=== PATIENT | female | born 2005 | race Caucasian/White ===

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

== ENCOUNTER 2024-01-04 03:48 | Emergency (ER) | payer OTHER, SELFPAY ==
[2024-01-04 04:16] VITALS: BP 99/64; PULSE 98; RESP 16; TEMP 36.4; O2SAT 98; BMI 18.6
--- NOTE | 2024-01-04 04:41 | ED.GENADULT ---
HPI - General Adult General Chief complaint: Sore Throat Stated complaint: Body aches, cough Time Seen by Provider: 01/04/24 03:52 History of Present Illness HPI narrative: 4 days of worsening cold symptoms, cought, headache, throat sore, body aches. last tylenol 2100 also took ibuprofen and neproxen w/o relief. unable to sleep tonight due to worsening symptoms. 18-year-old young woman presenting to the emergency department with complaint of cough and congestion headache body aches and sore throat. Has been taking ibuprofen acetaminophen and naproxen. She just can not sleep due to being so uncomfortable. Uncertain exposures. Nauseated. Going on for almost 4 days now. No diarrhea. Does smoke. Troubling symptoms in particular seem to be the sore throat and body aches Related Data Home Medications Medication Instructions Recorded Confirmed drospirenone 3 mg-ethinyl 1 tab PO QDAY 09/23/22 09/21/23 estradiol 0.02 mg tablet (BOUBACAR (28)) Previous Rx's Medication Instructions Recorded phenazopyridine 200 mg tablet 200 mg PO TID PRN pain 6 doses #6 09/23/22 (Pyridium) tabs fluconazole 150 mg tablet 150 mg PO Q3D 2 doses #2 tabs 09/30/22 fluconazole 150 mg tablet 150 mg PO Q3D 2 doses #2 tabs 09/21/23 sulfamethoxazole 800 1 tab PO BID #9 tabs 09/21/23 mg-trimethoprim 160 mg tablet (Bactrim DS) Allergies Allergy/AdvReac Type Severity Reaction Status Date / Time lansoprazole [From Prevacid] Allergy Mild Hives Verified 10/30/23 17:44 Penicillins Allergy Mild Hives Verified 10/30/23 17:44 ibuprofen AdvReac Mild gi upset Verified 10/30/23 17:44 Review of Systems Status of ROS: Reports: 6 or more systems reviewed and unremarkable except as noted in History and below PFSH PFSH Social History Smoking Status: Current every day smoker Do you use any of these nicotine containing products: E-Cigarettes and Vaping Products Second hand tobacco smoke exposure: No How often do you have a drink containing alcohol: never AUDIT-C Alcohol total score: 0 Non-prescribed substance use: denies use Exam Narrative: Exam Narrative: Clearly uncomfortable. Tearful in silent discomfort. Is not tachypneic. Skin is warm and dry. No apparent rash. Lungs are clear. Oropharynx is moist. Mild erythema posteriorly but no cervical lymphadenopathy. Lungs are clear. Heart in elevated rate and regular rhythm. Abdomen is soft nontender. Clearly sore with movements. Extremities are well perfused without edema. Const: Vital Signs, click to edit/add: Vital Signs - 24 hr 01/04/24 04:16 01/04/24 05:15 Temperature 97.6 F Pulse Rate [Pulse Oximeter] 98 Respiratory Rate 16 18 Blood Pressure [Ri ght Upper Arm] 99/64 Pulse Oximetry 98 100 Oxygen Delivery Me thod Room Air Room Air Documenting provider has reviewed patient's vital signs: yes Course Vital Signs Vital signs: Initial Vital Signs Temperature 97.6 F 01/04/24 04:16 Temperature Source Temporal Artery Scan 01/04/24 04:16 Pulse Rate 98 01/04/24 04:16 Respiratory Rate 16 01/04/24 04:16 Blood Pressure 99/64 01/04/24 04:16 Blood Pressure Mean 75 01/04/24 04:16 Blood Pressure Position Sitting 01/04/24 04:16 Pulse Oximetry 98 01/04/24 04:16 Oxygen Delivery Method Room Air 01/04/24 04:16 Vital Signs Temperature 97.6 F 01/04/24 04:16 Pulse Rate 98 01/04/24 04:16 Respiratory Rate 16 01/04/24 04:16 Blood Pressure 99/64 01/04/24 04:16 Pulse Oximetry 98 01/04/24 04:16 Oxygen Delivery Method Room Air 01/04/24 04:16 Temperature 97.6 F 01/04/24 04:16 Pulse Rate 98 01/04/24 04:16 Respiratory Rate 18 01/04/24 05:15 Blood Pressure 99/64 01/04/24 04:16 Pulse Oximetry 100 01/04/24 05:15 Oxygen Delivery Method Room Air 01/04/24 05:15 Medical Decision Making [facility] Narrative Medical decision making narrative: Considering community prevalence I would suspect influenza here particularly with myalgias. Triple swab has been collected. Strep as well. Does not appear to have symptoms of pneumonia otherwise. No rashes. No vomiting or diarrheal illness. She would like some relief of symptoms unable to accomplish this with [id number] medication. Seen a couple of months ago here treat for urinary tract infection; culture results were negative/inconclusive. Strep is negative. Around the time I am seeing [facility] triple swab has been resulted positive for influenza type B. We discussed potential treatment options. Does not feel that has to have IV hydration here. Vitally well. Needs a work note. See patient discharge plan further discussion Medical Records Medical records reviewed: Yes I reviewed the patient's medical records Lab Data Lab results reviewed: Yes I reviewed the patient's lab results Labs: Lab Results 01/04/24 Range/Units 04:20 SARS-CoV-2 (PCR) Negative SARS-CoV-2 (Negative) Influenza Type A (PCR) Negative PCR FLU A (Negative) Influenza Type B (PCR) POSITIVE PCR FLU B A (Negative) RSV (PCR) Negative PCR RSV (Negative) Group A Strep DNA NOT DETECTED (Not Detectd) Discharge Plan Discharge Clinical Impression: Influenza B, Myalgia Patient Disposition: Home, Self-Care Condition: Stable Additional Instructions: Important to focus on hydration. Try to get 2-3 L of water/liquid intake daily. Can take up to 600 mg of ibuprofen or up to 850 mg of acetaminophen per dose. They can also be combined. Remember that each tablet of [place] contains 325 mg of acetaminophen [place] and Zofran from [facility]. Work note. Prescriptions: No Action drospirenone-ethinyl estradiol [BOUBACAR (28)] 3-0.02 mg tablet 1 tab PO QDAY phenazopyridine [Pyridium] 200 mg tablet 200 mg PO TID PRN (Reason: pain) Qty: 6 0RF fluconazole 150 mg tablet 150 mg PO Q3D Qty: 2 0RF Rx Instructions: may repeat second dose 72 hrs after first dose if symptoms persist sulfamethoxazole-trimethoprim [Bactrim DS] 800-160 mg tablet 1 tab PO BID Qty: 9 0RF fluconazole 150 mg tablet 150 mg PO Q3D Qty: 2 0RF Follow Up/Referrals: Provider,Not a Local [Primary Care Provider] - Stand Alone Forms: [facility] Info Instructions
[2024-01-04 04:54] LABS: Strep A DNA Probe* NOT DETECTED (Not Detectd)
[2024-01-04 05:08] LABS: PCR FLU A Negative PCR FLU A (Negative); PCR FLU B POSITIVE PCR FLU B (Negative); PCR RSV Negative PCR RSV (Negative); SARS PCR* Negative SARS-CoV-2 (Negative)
[2024-01-04 05:15] VITALS: RESP 18; O2SAT 100
== END 2024-01-04 06:06 | disposition home or self-care (01) ==
PROVIDERS: Emergency Provider Family Medicine
DX: J10.1 Influenza due to other identified influenza virus with other respiratory manifestations (principal); M79.18 Myalgia, other site
CPT/HCPCS: 87631; 87651; 99283; 99284

== ENCOUNTER 2024-02-15 00:14 | Emergency (ER) | payer OTHER, SELFPAY ==
[2024-02-15 00:25] VITALS: BP 103/67; PULSE 75; RESP 16; TEMP 36.6; O2SAT 96; BMI 19.0
--- NOTE | 2024-02-15 00:39 | ED_ITS ---
HPI - General Adult General Chief complaint: Urogenital Problems, Female Stated complaint: UTI Time Seen by Provider: 02/15/24 00:22 History of Present Illness HPI narrative: recurrent UTIs for the past year that are difficult to treat, current UTI was Macrobid and was switched to cipro 2 days ago, has been taking ABO without improvement, took Pyridium 1 hour ago but continues to have severe pain. also took Tylenol prior to coming in. no fever or chills currenlty 18-year-old woman presenting to the emergency department with concern of worsening urinary tract infection. Reports about 2 weeks of symptoms that sounds to have correlated with intercourse. Further questioning reveals that began to have frequent urinary tract infections beginning a year urine half ago with partner at the time. Did not have as much trouble in subsequent relationship and now with another relationship seems to be having UTIs again. She takes care to urinate after intercourse. I do review records. 09/18 urine culture grew pansensitive E coli. October of this year urine culture was mixed Gram-positive jimmy. She was initiated on Macrobid 5 or so days ago for cramping pressure severe dysuria. No urine was collected; this visit was done virtually. Two days ago was seen in clinic again with nitrate positive urine and switched to ciprofloxacin. This culture has not grown out any organisms. Prior cultures did also recently have not grown out anything. Was seen then yesterday by OBGYN thinking that maybe something structurally might be wrong or perhaps has an STI; the physical evaluation and labs were all negative. Mom accompanies her here today having left work as she was curled up in severe pain. Initially noting that peridium is not helpful it sounds as though peridium today has been helpful as it she is sitting with a sense of pressure currently and dysuria has lessened. Also has taken acetaminophen. Mom mentions also that have been taking cranberry capsules and probiotics. Related Data Home Medications Medication Instructions Recorded Confirmed drospirenone 3 mg-ethinyl 1 tab PO QDAY 09/23/22 02/15/24 estradiol 0.02 mg tablet (BOUBACAR (28)) ciprofloxacin HCl 500 mg tablet 500 mg PO BID 02/15/24 02/15/24 Previous Rx's Medication Instructions Recorded phenazopyridine 200 mg tablet 200 mg PO TID PRN pain 6 doses #6 09/23/22 (Pyridium) tabs ciprofloxacin HCl 500 mg tablet 500 mg PO BID #6 tabs 02/15/24 hyoscyamine sulfate 0.125 mg tablet 0.125 - 0.25 mg (1 - 2 x 0.125 mg) 02/15/24 PO Q4-6H PRN cramping/pain #30 tabs phenazopyridine 200 mg tablet 100 - 200 mg (0.5 - 1 x 200 mg) PO 02/15/24 TID PRN pain #10 tabs Allergies Allergy/AdvReac Type Severity Reaction Status Date / Time lansoprazole [From Prevacid] Allergy Mild Hives Verified 10/30/23 17:44 Penicillins Allergy Mild Hives Verified 10/30/23 17:44 Review of Systems Status of ROS: Reports: 6 or more systems reviewed and unremarkable except as noted in History and below [facility] Social History Smoking Status: Current every day smoker Do you use any of these nicotine containing products: E-Cigarettes and Vaping Products Second hand tobacco smoke exposure: No How often do you have a drink containing alcohol: never AUDIT-C Alcohol total score: 0 Non-prescribed substance use: denies use Exam Narrative: Exam Narrative: Calm. Slim. NAD. No flank pain. She is breathing easily. Abdomen is soft otherwise without notable discomfort. No masses. Skin is warm and dry without rashes. Heart is in regular rate and rhythm. exam was not done Const: Vital Signs, click to edit/add: Vital Signs - 24 hr 02/15/24 00:25 Temperature 97.9 F Pulse Rate [Pulse Oximeter] 75 Respiratory Rate 16 Blood Pressure [Ri ght Upper Arm] 103/67 Pulse Oximetry 96 Oxygen Delivery Me thod Room Air Documenting provider has reviewed patient's vital signs: yes Course Vital Signs Vital signs: Initial Vital Signs Temperature 97.9 F 02/15/24 00:25 Temperature Source Temporal Artery Scan 02/15/24 00:25 Pulse Rate 75 02/15/24 00:25 Respiratory Rate 16 02/15/24 00:25 Blood Pressure 103/67 02/15/24 00:25 Blood Pressure Mean 79 02/15/24 00:25 Blood Pressure Position Sitting 02/15/24 00:25 Pulse Oximetry 96 02/15/24 00:25 Oxygen Delivery Method Room Air 02/15/24 00:25 Vital Signs Temperature 97.9 F 02/15/24 00:25 Pulse Rate 75 02/15/24 00:25 Respiratory Rate 16 02/15/24 00:25 Blood Pressure 103/67 02/15/24 00:25 Pulse Oximetry 96 02/15/24 00:25 Oxygen Delivery Method Room Air 02/15/24 00:25 Temperature 98.6 F 02/15/24 03:15 Pulse Rate 94 02/15/24 03:15 Respiratory Rate 16 02/15/24 03:15 Blood Pressure 92/63 02/15/24 03:15 Pulse Oximetry 96 02/15/24 03:15 Oxygen Delivery Method Room Air 02/15/24 03:15 Medications Administered Medications: Discontinued Medications Generic Name Dose Route Start Last Admin Trade Name Freq PRN Reason Stop Dose Admin Hyoscyamine 0.25 mg 02/15/24 02:22 02/15/24 03:04 Hyoscyamine Sulfate 0.125 Mg Tab SUBLINGUAL 02/15/24 02:23 0.25 mg ONCE ONE Administration Sodium Chloride 1,000 mls @ 1,000 mls/hr 02/15/24 02:22 02/15/24 03:13 0.9 % Sodium Chloride 1000 Ml IV 02/15/24 03:21 Infused .Q1H ONE Infusion Ibuprofen 600 mg 02/15/24 01:11 02/15/24 01:22 Ibuprofen 200 Mg Tablet PO 02/15/24 01:12 600 mg ONCE ONE Administration Medical Decision Making MDM Narrative Medical decision making narrative: This would appear I think intermittently to be urinary tract infections but more recently it would appear the symptoms have been related to aseptic cystitis or urethritis. I think also experiencing unusual spasms. Again all STI testing yesterday was negative. Did offer ibuprofen and hyoscyamine. On later reassessment does seem improved. Thinks that the hyoscyamine was helpful. Urinalysis is grossly positive. I suspect that Macrobid as bacteriostatic was ultimately not effective. We have also probably not seen effect of ciprofloxacin yet; has had 3 doses. Reviewed only available cultures that have been positive done here as referenced above. E coli was sensitive to ciprofloxacin at that time. Would continue this course then for a few more days than initial 3 day prescription. Mom is wondering whether not we should collect some other labs for more thorough evaluation. Did go ahead and place IV and given L normal saline. Renal function looks good. White count is not elevated neither is CRP. Overall improved during time in the ER. They are planning follow-up with [facility]. See patient discharge plan for further discussion. Prescribing a few more days of ciprofloxacin, hyoscyamine and phenazopyridine Medical Records Medical records reviewed: Yes I reviewed the patient's medical records Lab Data Lab results reviewed: Yes I reviewed the patient's lab results Labs: Lab Results 02/15/24 02/15/24 Range/Units 01:05 02:45 WBC 5.51 (4.50-11.00) K/uL RBC 4.25 (4.00-5.20) m/uL Hgb 12.5 (12.0-16.0) gm/dL Hct 37.7 (33.0-51.0) % MCV 89 (80-100) fL MCH 29 (26-34) pg MCHC 33 (32-36) gm/dL RDW Coeff of [place] 12.3 (11.5-15.5) % Plt Count 245 (140-440) K/uL Neut % (Auto) 46.3 (42.0-72.0) % Lymph % (Auto) 42.8 (20-44) % [place] % (Auto) 9.3 (0.0-11.0) % Eos % (Auto) 0.9 (0.0-7.0) % Baso % (Auto) 0.5 (0.0-3.0) % Neut # (Auto) 2.55 (1.7-7.0) K/uL Lymph # (Auto) 2.36 (0.90-2.90) K/uL [place] # (Auto) 0.50 (0.00-0.90) K/UL Eos # (Auto) 0.05 (0.00-0.50) K/uL Baso # (Auto) 0.03 (0.00-0.30) K/uL Abs Immat Gran (auto) 0.01 (0.00-0.30) K/uL Imm/Tot Granulo (auto) 0.2 % Sodium 136 (135-149) mmol/L Potassium 4.3 (3.6-5.1) mmol/L Chloride 108 (96-114) mmol/L Carbon Dioxide 23 (20-32) mmol/L Anion Gap 5 L (7-15) mEq/L BUN 16 (5-24) mg/dL Creatinine 0.8 (0.6-1.2) mg/dL Estimated Creat Clear 95.57 Estimated GFR 109 ml/min Glucose 95 (60-115) mg/dL Calcium 9.6 (8.7-10.8) mg/dL C-Reactive Protein < 0.5 L (0.5-1.0) mg/dL Urine Color [place] A (Yellow) Urine Appearance Clear (Clear) Urine pH 6.5 (5.0-8.5) Ur Specific [place] 1.025 (1.000-1.030) Urine Protein 2+ A (Negative) Urine Glucose (UA) 1+ A (Negative) Urine Ketones 1+ A (Negative) Urine Blood Negative (Negative) Urine Nitrite Positive A (Negative) Urine Bilirubin 2+ A (Negative) Urine Urobilinogen >=8.0 A (0.2-1.0) Ur Leukocyte Esterase 3+ A (Negative) Urine RBC 2-5 A (0-2) Urine WBC 25-50 A (0-5) Ur Squamous Epith Cells Moderate A (None-Few) Amorphous Sediment Moderate A (None) Urine Bacteria Moderate A (None) Fine Granular Casts Few A (None) Discharge Plan Discharge Clinical Impression: Cystitis Patient Disposition: Home w/ Parent or Adult Condition: Improved Additional Instructions: Stay well-hydrated with water. Avoid juices, sweetened beverages until clear of this apparent infection. I think you can continue to take phenazopyridine for a few more days if you need. I would strongly consider avoiding intercourse until can verify that are symptom-free and urinalysis at a minimum shows you clear of infection. A urine culture will be pending here though and we will call you if you need to make any changes with your antibiotic. And for now, please continue with the ciprofloxacin. I will extend the course though for another 3 days so that you complete a full 6 days of ciprofloxacin. Please follow-up in clinic as planned for further evaluation and recommendations beyond what we have been able to do here. Prescriptions: New ciprofloxacin HCl 500 mg tablet 500 mg PO BID Qty: 6 0RF hyoscyamine sulfate 0.125 mg tablet 0.125 - 0.25 mg PO Q4-6H PRN (Reason: cramping/pain) Qty: 30 0RF phenazopyridine 200 mg tablet 100 - 200 mg PO TID PRN (Reason: pain) Qty: 10 0RF No Action drospirenone-ethinyl estradiol [BOUBACAR (28)] 3-0.02 mg tablet 1 tab PO QDAY phenazopyridine [Pyridium] 200 mg tablet 200 mg PO TID PRN (Reason: pain) Qty: 6 0RF ciprofloxacin HCl 500 mg tablet 500 mg PO BID Follow Up/Referrals: Provider,Not a Local [Primary Care Provider] - Stand Alone Forms: [facility] Info Instructions
--- OUTSIDE RECORDS SUMMARY | 2024-02-15 01:18 | XMS_ITS | Clinical Summary ---
Author Name Unknown Organization [facility] Address [address] [place] [address] Care Team Providers Care Rolled Ham Lacer Name Role Phone Chetna Randhawa MD Unavailable [phone] David Blancas DO Primary Care Provider [phone] David Blancas DO Unavailable [phone] Allergies Active Allergy Reactions Criticality Noted Date Comments Amoxicillin Rash Low 06/27/2020 Taken at the same time as Prevacid; occurred in 4th grade Lansoprazole Rash Low 01/04/2020 Medications Medication Sig Dispensed Refills Start Date End Date Status drospirenone-ethi nyl estradiol (BOUBACAR) 3-0.02 MG tablet Take 1 tablet by mouth daily Active ciprofloxacin (CIPRO) 500 MG tabletIndications :Recurrent UTI Take 1 tablet (500 mg) by mouth 2 times daily 6 tablet 02/12/2024 Active nitroFURantoin macrocrystal-mono hydrate (MACROBID) 100 MG capsule TAKE ONE CAPSULE BY MOUTH TWICE DAILY FOR 5 DAYS. TAKE WITH A MEAL/FOOD. 09/23/2022 02/12/2024 Discontinued( Med Rec(No AVS / No eCancel)) phenazopyridine (PYRIDIUM) 200 MG tablet TAKE ONE TABLET BY MOUTH THREE TIMES DAILY NEEDED for max of 6 doses. 09/23/2022 02/12/2024 Discontinued( Med Rec(No AVS / No eCancel)) clobetasol (TEMOVATE) 0.05 % external cream 10/18/2021 02/12/2024 Discontinu ed( Med Rec(No AVS / No eCancel)) acetic acid-hydrocortiso ne (VOSOL-HC) 1-2 % otic solutionIndicatio ns:Otalgia, left Place 3 drops Into the left ear 3 times daily 10 mL 05/08/2023 02/12/2024 Discontinued( Med Rec(No AVS / No eCancel)) nitroFURantoin macrocrystal-mono hydrate (MACROBID) 100 MG capsuleIndication s:Acute UTI (urinary tract infection) Take 1 capsule (100 mg) by mouth 2 times daily for 5 days 10 capsule 02/08/2024 02/13/2024 Active Problems Problem Noted Date Diagnosed Date Recurrent UTI 02/12/2024 Screening for STDs (sexually transmitted disease s) 05/08/2023 Last Assessment & Plan: Urinalysis obtained at intake cannot be used for GC/chlamydia testing. Retest tomorrow, cervical swab optimal. Recommended barrier methods Dysuria 05/08/2023 Last Assessment & Plan: 3 weeks since episode of unprotected sex. Exam today nondiagnostic, vaginitis. Urinalysis however without white cells by microscopic. Urine culture, investigate perineum further. Recommend barrier methods Otalgia, left 05/08/2023 Last Assessment & Plan: Left ear pain, frequency/duration unclear. She blames this on headphone use at her employment, reports volume is low. Exam shows no TM fluid nor erythema, nontender canal without tenderness. Trial of therapy Vaginitis and vulvovaginitis 05/08/2023 Last Assessment & Plan: Dysuria 3 weeks following unprotected sex. Pyuria on UA, white cells in vaginal swab without diagnostic findings. Suspicious of HSV versus chlamydia. Patient needs inspection, additional test samples. We are able to arrange a female exam for tomorrow Isolated proteinuria without specific morphologi c lesion 05/08/2023 Last Assessment & Plan: On UA with pyuria. Recommend retest near future when asymptomatic. If persistent, investigate renal function further Resolved Problems Problem Noted Date Diagnosed Date Resolved Date Dehydration 06/27/2020 10/03/2022 Encounters Date Type Department Care Team Description 02/12/2024 4:00 PM CDT Office Visit [facility] [address] [place] [phone] David Britton MD Dysuria (Primary Dx); Screening for STDs (sexually transmitted diseases); Recurrent UTI 02/12/2024 12:20 AM CDT E-Visit [facility] [address] [phone] Jenae Lepe PA-C UTI (Entered automatically based on patien... 02/12/2024 Travel 02/08/2024 8:40 PM CDT E-Visit [facility] [address] [place] [phone] Judith Dominique APRN FLORIST SUPPLIES SALESPERSON UTI (Entered automatically based on patien... 01/16/2024 Travel 01/10/2024 3:30 PM CDT Lab [facility] [address] [place] [phone] Dysuria 01/10/2024 Travel 01/09/2024 1:05 AM CDT E-Visit [facility] [address] [phone] Jazmine Pruitt CNP UTI (Entered automatically based on patien... 12/18/2023 9:20 PM BARTENDERS E-Visit [facility] [address] [place] [phone] Garima Wu, HYPERBARIC TECHNOLOGIST UTI (Entered automatically based on patien... 12/10/2023 1:15 PM BARTENDERS Lab [facility] [address] [place] [phone] Lower urinary tract symptoms (LUTS) 12/10/2023 Travel 12/09/2023 7:25 PM BARTENDERS E-Visit [facility] [address] [phone] Violet Castaneda PA-C UTI (Entered automatically based on patien... 12/09/2023 Orders Only [address] [phone] Violet Castaneda PA-C Lower urinary tract symptoms (LUTS) (Primary Dx) 12/09/2023 Orders Only [address] [phone] Violet Castaneda PA-C Lower urinary tract symptoms (LUTS) (Primary Dx) 12/03/2023 11:30 AM BARTENDERS Lab [facility] [address] [place] [phone] Acute UTI (urinary tract infection) 12/03/[address] [phone] Toby Stephens PA-C 12/03/2023 Travel 12/02/2023 10:05 PM BARTENDERS E-Visit [facility] [address] [phone] Toby Stephens PA-C UTI (Entered automatically based on patien... from Last 3 Months Immunizations Name Administration Dates Next Due Comvax (HIB/HepB) 05/27/2005,2004,07/23/20 04 DTAP (<7y) 03/16/2009, 6,2004,09/18,2004 Flu, Unspecified 09/22/2006 HEPATITIS A (PEDS 12M-18Y) 06/14/2008,06/01/2007 Influenza (H1N1) 09/14/2009 Influenza Intranasal Vaccine 08/27/2011 Influenza Vaccine (Flucelvax Quadrivalent) 09/14/2018 Influenza Vaccine >6 months,quad, PF 09/12/2015 Influenza, seasonal, injectable, PF 09/10/2012,1 ,10/01/2005 MMR 06/12/2009,06/25/2005 Meningococcal ACWY (Menveo??) 06/16/2020 Meningococcal B (Bexsero??) 05/31/2022, Nasal Influenza Vaccine 2-49 (FluMist) 4,08/18/2013 Pneumococcal (PCV 7) 08/27/2005,11/16/19 05,2004,07/23 Poliovirus, inactivated (IPV) 03/16/2009 ,2004,2004,07/23 TDAP (Adacel,Boostrix) 10/18/2015 Varicella 02/05/2010,05/27/2005 Social History Tobacco Use Types Packs/Day Years Used Date Smoking Tobacco: Never Smokeless Tobacco: Never Tobacco Cessation:Counseling Given: Not Answered Alcohol Use Standard Drinks/Week Comments Not Asked 0 (1 standard drink = 0.6 oz pur e alcohol) PHQ-2 Answer Date Recorded PHQ-2 Score 0 01/16/2024 Adolescent Education Answer Date Record ed Getting School Help Needed Not on file 08/12 Food Insecurity Answer Date Recorded Within the past 12 months, d id you worry that your food would run out before you got money to buy more? No 09/21/2023 Within the past 12 months, d id the food you bought just not last and you didn? t have money to get more? No 09/21/2023 Housing Stability Answer Date Recorded Do you have housing? Yes 09/21/2023 Are you worried about losing your housing? No 09/21/2023 Financial Resource Strain Answer Date R ecorded Within the past 12 months, h ave you or your family members you live with been unable to get utilities (heat, electricity) when it was really needed? No 09/21/2023 Transportation Needs Answer Date Record ed Within the past 12 months, h as lack of transportation kept you from medical appointments, getting your medicines, non-medical meetings or appointments, work, or from getting things that you need? No 09/21/2023 Sex and Gender Information Value Date Recorded Sex Assigned at Not on file Gender Identity Not on file Sexual Orientation Not on file Last Filed Vital Signs Vital Sign Reading Time Taken Comments Blood Pressure 110/63 02/12/2024 4:01 PM CDT Pulse 84 02/12/2024 4:01 PM CDT Temperature 37.1 ??C (98.8 ??F) 02/12/2024 4:01 PM CD T Respiratory Rate 18 02/12/2024 4:01 PM CDT Oxygen Saturation 99% 02/12/2024 4:01 PM CDT Inhaled Oxygen Concentration - - Weight 52.6 kg (116 lb) 02/12/2024 4:01 PM CDT Height 167.6 cm (5' 6) 02/12/2024 4:01 PM CDT Body Mass Index 18.72 02/12/2024 4:01 PM CDT Plan of Treatment Health Maintenance Due Date Last Done Comments ADVANCE CARE PLANNING 2004 YEARLY PREVENTIVE VISIT 2004 HIV SCREENING 2019 HPV IMMUNIZATION (1 - 3-dose series) 2019 HEPATITIS C SCREENING 2022 COVID-19 Vaccine ( season) 2023 INFLUENZA VACCINE (#1) 2023 8, 09/12/2015, 08/25/2014, Additional history exists ANNUAL REVIEW OF HM ORDERS 05/08/2024 05/08/2023 CHLAMYDIA SCREENING 02/11/2025 02/12/2024, 05/09/2023, 05/09/2023 DTAP/TDAP/TD IMMUNIZATION (7 - Td or Tdap) 10/18/2025 10/18/2015, 03/16/2009, 12/03/2005, Additional history exists HEPATITIS B IMMUNIZATION Completed 005, 2004, 2004 HIB IMMUNIZATION Completed 05/27/2005, , 2004 Pneumococcal Vaccine: Pediatrics (0 to 5 Years) and At-Risk Patients (6 to 64 Years) Aged Out 08/27/2005, 2004, 2004, Additional history exists No longer eligible based on patient's age to complete this topic IPV IMMUNIZATION Completed 03/16/2009, , 2004, Additional history exists VARICELLA IMMUNIZATION Completed 02/05/2010, 2004 MENINGITIS IMMUNIZATION Completed 06/16/2020, 04/02 PHQ-2 (once per calendar year) Completed 01/16/2024, 05/08/2023, 09/25/2022 RSV MONOCLONAL ANTIBODY Aged Out No l onger eligible based on patient's age to complete this topic Procedures Procedure Name Priority Date/Time Associated Diagnosis Comments WET PREPARATION Routine 02/12/2024 3:51 PM CDT Dysuria CHLAMYDIA TRACHOMATIS/NEISSERI A GONORRHOEAE BY PCR Routine 02/12/2024 3:51 PM CDT Dysuria URINE CULTURE Routine 02/12/2024 3:50 PM CDT Dysuria URINE MICROSCOPIC EXAM Routine 02/12/2024 3:50 PM CDT Dysuria UA MACROSCOPIC WITH REFLEX TO MICRO AND CULTURE Routine 02/12/2024 3:50 PM CDT Dysuria WET PREPARATION Routine 01/10/2024 3:30 PM CDT Dysuria UA MICROSCOPIC WITH REFLEX TO CULTURE Routine 01/10/2024 3:30 PM CDT Dysuria UA MACROSCOPIC WITH REFLEX TO MICRO AND CULTURE Routine 01/10/2024 3:30 PM CDT Dysuria WET PREPARATION Routine 12/10/2023 1:20 PM BARTENDERS Lower urinary tract symptoms (LUTS) UA MICROSCOPIC WITH REFLEX TO CULTURE Routine 12/10/2023 1:20 PM BARTENDERS Lower urinary tract symptoms (LUTS) UA MACROSCOPIC WITH REFLEX TO MICRO AND CULTURE Routine 12/10/2023 1:20 PM BARTENDERS Lower urinary tract symptoms (LUTS) URINE CULTURE Routine 12/03/2023 11:27 AM BARTENDERS Acute UTI (urinary tract infection) UA MICROSCOPIC WITH REFLEX TO CULTURE Routine 12/03/2023 11:27 AM BARTENDERS Acute UTI (urinary tract infection) UA MACROSCOPIC WITH REFLEX TO MICRO AND CULTURE Routine 12/03/2023 11:27 AM BARTENDERS Acute UTI (urinary tract infection) from Last 3 Months Results * Chlamydia trachomatis/Neisseria gonorrhoeae by PCR - Clinic Collect (02/12/2024 3:51 PM CDT) Chlamydia Trachomatis Negative Negative 02/13/2024 11:00 AM CDT [facility] Comment: Negative for C. trachomatis rRNA by eyewear manufacturing tech mediated amplification. A negative result by eyewear manufacturing tech mediated amplification does not preclude the presence of infection because results are dependent on proper and adequate collection, absence of inhibitors and sufficient rRNA to be detected. Neisseria gonorrhoeae Negative Negative 02/13/2024 11:00 AM CDT [facility] Comment:Negative for N. gono rrhoeae rRNA by eyewear manufacturing tech mediated amplification. A negative result by eyewear manufacturing tech mediated amplification does not preclude the presence of C. trachomatis infection because results are dependent on proper and adequate collection, absence of inhibitors and sufficient rRNA to be detected. Swab VAGINAL STRUCTURE / Unknown Non-blood Collection / Unknown 02/12/2024 3:51 PM CDT 02/12/2024 3:51 PM CDT David Britton MD LAB - MICRO GENE RAL ORDERABLES [facility] Inf. Diseases Diag. Lab [address] [facility] [place] [address] * (ABNORMAL) Wet prep - lab collect (02/12/2024 3:51 PM CDT) Only the most recent of3 resultswithin the time period is included. Trichomonas Absent Absent NIRANJAN 02/12/2024 3:57 PM CDT [facility] Yeast Absent Absent NIRANJAN 02/12/2024 3:57 PM CDT [facility] Clue Cells Absent Absent NIRANJAN 02/12/2024 3:57 PM CDT [facility] WBCs/high power field 1+(A) None NIRANJAN 02/12/2024 3:57 PM CDT [facility] Swab VAGINAL STRUCTURE / Unknown Non-blood Collection / Unknown 02/12/2024 3:51 PM CDT 02/12/2024 3:51 PM CDT David Britton MD LAB - MICRO GENE RAL ORDERABLES LABORATORY [facility] [address] [facility] (no room number, 1st floor of clinic) [place] [address], [facility] * (ABNORMAL) UA Macroscopic with reflex to Microscopic and Culture - Lab Collect (02/12/2024 3:50 PM CDT) Only the most recent of4 resultswithin the time period is included. Color Urine Yellow Colorless, Straw, Light Yellow, Yellow 02/12/2024 3:57 PM CDT LABORATORY Appearance Urine Clear Clear 02/12/20 24 3:57 PM CDT LABORATORY Glucose Urine Negative Negative mg/dL 02/12/2024 3:57 PM CDT LABORATORY Bilirubin Urine Negative Negative 4 3:57 PM CDT LABORATORY Ketones Urine Negative Negative mg/dL 02/12/2024 3:57 PM CDT LABORATORY Specific [place] Urine 1.010 1.003 - 1.035 02/12/2024 3:57 PM CDT LABORATORY Blood Urine Negative Negative 02/12/2024 3:57 PM CDT LABORATORY pH Urine 6.5 5.0 - 7.0 02/12/2024 3:57 PM CDT LABORATORY Protein Albumin Urine Negative Negative mg/dL 02/12/2024 3:57 PM CDT LABORATORY Urobilinogen Urine 0.2 0.2, 1.0 E.U./dL 02/12/2024 3:57 PM CDT LABORATORY Nitrite Urine Positive(A) Negative 02/12/2024 3:57 PM CDT LABORATORY Leukocyte Esterase Urine Negative Negative 02/12/2024 3:57 PM CDT LABORATORY Urine MID-STREAM URINE SPECIMEN / Unknown Non-blood Collection / Unknown 02/12/2024 3:50 PM CDT 02/12/2024 3:51 PM CDT David Britton MD LAB - URINE ORDE RABMACHELLE LABORATORY [facility] [address] [facility] (no room number, 1st floor of [facility]) [place] [address], [facility] * (ABNORMAL) Urine Microscopic Exam (02/12/2024 3:50 PM CDT) Bacteria Urine Few(A) None Seen /HPF NIRANJAN 02/12/2024 3:58 PM CDT [facility] RBC Urine 0-2 0-2 /HPF /HPF NIRANJAN 02/12/2024 3:58 PM CDT [facility] WBC Urine 0-5 0-5 /HPF /HPF NIRANJAN 02/12/2024 3:58 PM CDT [facility] Squamous Epithelials Urine Few(A) None Seen /LPF NIRANJAN 02/12/2024 3:58 PM CDT [facility] Urine MID-STREAM URINE SPECIMEN / Unknown Non-blood Collection / Unknown 02/12/2024 3:50 PM CDT 02/12/2024 3:51 PM CDT David Britton MD LAB - URINE ORDE TERRELL Performing Organization Address City/[facility]/ZIP Co de Phone Number LABORATORY [facility] [address] [facility] (no room number, 1st floor of [facility]) [place] [address], [facility] * Urine Culture (02/12/2024 3:50 PM CDT) Only the most recent of2 resultswithin the time period is included. Culture No Growth 02/13/2024 1:13 PM CDT [facility] Urine MID-STREAM URINE SPECIMEN / Unknown Non-blood Collection / Unknown 02/12/2024 3:50 PM CDT 02/12/2024 3:57 PM CDT David Britton MD LAB - MICRO GENE RAL ORDERABLES [facility] Inf. Diseases Diag. Lab [address] [facility] [place] [address] * (ABNORMAL) UA Microscopic with Reflex to Culture (01/10/2024 3:30 PM CDT) Only the most recent of3 resultswithin the time period is included. Bacteria Urine Moderate( A) None Seen /HPF NIRANJAN 01/10/2024 3:44 PM CDT [facility] RBC Urine 0-2 0-2 /HPF /HPF NIRANJAN 01/10/2024 3:44 PM CDT [facility] WBC Urine 0-5 0-5 /HPF /HPF NIRANJAN 01/10/2024 3:44 PM CDT [facility] Squamous Epithelials Urine Many(A) None Seen /LPF NIRANJAN 01/10/2024 3:44 PM CDT [facility] Urine MID-STREAM URINE SPECIMEN / Unknown Non-blood Collection / Unknown 01/10/2024 3:30 PM CDT 01/10/2024 3:30 PM CDT Narrative [facility] - 01/10/2024 3:44 PM CDT Urine Culture not indicated Jazmine Pruitt FLORIST SUPPLIES SALESPERSON LAB - URINE ORDER ALAYNA LABORATORY [facility] [address] [facility] (no room number, 1st floor of clinic) [place] [address], [facility] [phone] from Last 3 Months Care Teams Rolled Ham Lacer Relationship Specialty [place] [address] [place] [address] PCP - General Family Medicine 09/25/22 Chetna Randhawa MD [address] [address] spring up supervisor 11/08/21 [place] [address] [place] [address] Assigned PCP 09/05/22
--- OUTSIDE RECORDS SUMMARY | 2024-02-15 01:18 | XMS_ITS | Clinical Summary ---
Author Name Unknown Organization [facility] Address [place], [place] [address] Care Team Providers Care Math And Sciences Department Chair Name Role Phone Gayle Feliciano Primary Care Provider [phone] Allergies Active Allergy Reactions Criticality Noted Date Comments Amoxicillin Rash Low 06/27/2020 Taken at the same time as Prevacid; occurred in 4th grade Lansoprazole Rash Low 01/04/2020 Medications Medication Sig Dispensed Refills Start Date End Date Status Nara 28, 3-0.02 mg tablet 10/08/2022 Active multivitamins pediatric chewable (CHILDREN'S MULTIVITAMINS) chewable tablet Take 1 tablet by mouth once daily. 0 12/11/2010 02/13/2024 Discontinued( *Med complete/Vikki men complete/Leve l of care change) amoxicillin (AMOXIL) 400 mg/5 mL suspensionIndicati ons:Streptococcal sore throat Give 7.5 ml by mouth twice daily x10 days. 150 mL 0 01/16/2013 02/13/2024 Discontinued( *Med complete/Vikki men complete/Leve l of care change) clobetasol cream 0.05% (TEMOVATE) 0.05 % cream 10/18/2021 02/13/2024 Discontinued ( *Med complete/Vikki men complete/Leve l of care change) Active Problems No known active problems Encounters Date Type Department Care Team Description 02/13/2024 1:10 PM CDT Office Visit [facility] [address] [place] [address] Gayle Feliciano PA Establish Care (Mental Health referral ) 02/13/2024 Travel from Last 3 Months Immunizations Name Administration Dates Next Due DTaP 03/16/2009, 6,2004,09/18,2004 HIB-HepB (Comvax) 05/27/2005,2004,07/23/20 04 Hepatitis A (Peds) 06/14/2008,06/01/2007 Inactivated Polio Vaccine 03/16/2009,,2004,07/23 Influenza A (H1N1), Inactivated 09/14/2009 Influenza Virus, Unspecified 09/22/2006 Influenza, IIV3 (Age 6-35 mos) 09/10/2012,2009,10/01/2005 Influenza, IIV4 09/12/2015 Influenza, Injectable, Mdck, Quadrivalent, W/preservative 09/14/2018 Influenza, Live, Intranasal Laiv3 08/27/2011 Influenza,LAIV4 Live Intrana sayda (Flumist) 08/25/2014,08/18/2013 MMR 06/12/2009,06/25/2005 Meningococcal B 05/31/2022,06/29/2021 Meningococcal Vaccine (Menveo) 06/16/2020 Pneumococcal conj 7-Valent (Prevnar 7) 1 2004,2004,2004,07/23 Tdap 10/18/2015 Varicella Vaccine 02/05/2010,05/27/2005 Social History Tobacco Use Types Packs/Day Years Used Date Smoking Tobacco: Never Smokeless Tobacco: Never Alcohol Use Standard Drinks/Week Comments No 0 (1 standard drink = 0.6 oz pur e alcohol) PHQ-2 Answer Date Recorded PHQ-2 TOTAL SCORE 0 02/13/2024 Social Connections Answer Date Recorded Frequency of Communication with Friends and Fami ly 0 02/13/2024 Financial Resource Strain Answer Date R ecorded Difficulty of Paying Living Expenses 3 02/13/2024 Difficulty of Paying Living Expenses Not on file 02/13/2024 Food Insecurity Answer Date Recorded Worried About Running Out of Food in the Last Ye ar 1 02/13/2024 Transportation Needs Answer Date Record ed Lack of Transportation (Medical) 1 02/13/2024 Housing Stability Answer Date Recorded Unable to Pay for Housing in the Last Year 1 02/13/2024 Sex and Gender Information Value Date Recorded Sex Assigned at Not on file Gender Identity Not on file Sexual Orientation Not on file Obstetrics History Last Filed Vital Signs Vital Sign Reading Time Taken Comments Blood Pressure 101/69 02/13/2024 1:16 PM CDT Pulse 84 02/13/2024 1:16 PM CDT Temperature 36.8 ??C (98.2 ??F) 10/13/2022 2:51 PM CS T Respiratory Rate 12 10/13/2022 2:51 PM VERTICAL PUNCH OPERATOR Oxygen Saturation 98% 02/13/2024 1:16 PM CDT Inhaled Oxygen Concentration - - Weight 53.7 kg (118 lb 6.4 oz) 02/13/2024 1:16 P M CDT Height 167.6 cm (5' 5.98) 02/13/2024 1:16 PM CD T Body Mass Index 19.12 02/13/2024 1:16 PM CDT Plan of Treatment Health Maintenance Due Date Last Done Comments Well Child Check for age 3-20 04/21/2007 HIV for age 15-65 2019 HPV series for age 9-26 (1 - 3-dose series) 2019 Chlamydia for age 16-24 2020 Hepatitis C screening for age 18-79 2022 COVID-19 vaccine series (2022- season) 2023 Influenza for age 9-49 06/27/2024 8, 09/12/2015, 08/25/2014, Additional history exists BMI (ht and wt on same day) for age 18+ 02/12/2025 02/13/2024 Depression screening for age 12+ 02/12/2025 02/13/2024 Tetanus booster 10/18/2025 10/18/2015 Pneumococcal series for age 6-64 Aged Out 08/27/2005, 2004, 2004, Additional history exists No longer eligible based on patient's age to complete this topic Tdap Completed 10/18/2015 Meningococcal series for age 11-21 Completed 06/16/2020 Care Teams Math And Sciences Department Chair Relationship Specialty Start Date End Date Gayle Felician[place] [address] PCP - General Physician Property Custodian 02/04/24
--- OUTSIDE RECORDS SUMMARY | 2024-02-15 01:19 | XMS_ITS | Encounter Summary ---
Author Name Unknown Organization [facility] Address [address] [place] [address] Care Team Providers Care Truck Guard Name Role Phone Chetna Randhawa MD Unavailable [phone] David Blancsa DO Primary Care Provider [phone] David Blancas DO Unavailable [phone] Reason for Visit * Reason Comments UTI Entered automaticall y based on patient selection in [employer]. Encounter Details Date Type Department Care Team (Late st Contact Info) Description 02/12/2024 12:20 AM CDT E-Visit [facility] [address] [phone] Jenae Lepe PA-C [address] [place], [place] [id number] UTI (Entered automatically based on patien... Social History Tobacco Use Types Packs/Day Years [...] on file Sexual Orientation Not on file documented as of this encounter Patient Instructions * Patient Instructions* Jenae Lepe PA-C - 02/12/2024 12:20 AM CDT Dear Kerline Fontaine, We are sorry you are not feeling well. Based on the responses you provided, it is recommended that you be seen in-person in urgent care so we can better evaluate your symptoms. Please click here to find the nearest urgent care location to you. You will not be charged for this Visit. Thank you for trusting us with your care. Jenae Lepe PA-C, PA-C documented in this encounter Miscellaneous Notes * Telephone Encounter - Jenae Lepe PA-C - 02/12/2024 12:18 AM CDT Provider E-Visit time total (minutes): 10 documented in this encounter Plan of Treatment Not on file documented as of this encounter Visit Diagnoses Diagnosis Urinary frequency- Primary documented in this encounter Care Teams Truck Guard Relationship Specialty Start Date End Date David Blancas DO [address] [place] [address] PCP - General Family Medicine 09/25/22 Chetna Randhawa MD [address] [place] [address] director of grants 11/08/21 David Blancas DO [address] [place] [address] Assigned PCP 09/05/22 documented as of this encounter
--- OUTSIDE RECORDS SUMMARY | 2024-02-15 01:19 | XMS_ITS | Encounter Summary ---
Author Name Unknown Organization [facility] Address [address] [place] [address] Care Team Providers Care Library Assistant Name Role Phone Chetna Randhawa MD Unavailable [phone] David Blancas DO Primary Care Provider [phone] David Blancas DO Unavailable [phone] Reason for Visit * Reason Comments UTI Entered automaticall y based on patient selection in [employer]. Encounter Details Date Type Department Care Team (Late st Contact Info) Description 02/08/2024 8:40 PM CDT E-Visit [facility] [address] [address] Judith Dominique APRN [place], [place] [id number] UTI (Entered automatically based on no... Social History Tobacco Use Types Packs/Day Years [...] this encounter Patient Instructions * Patient Instructions* Judith Dominique APRN CNP - 02/08/2024 8:40 PM CDT Images from the original note were not included. Dear Kerline Fontaine After reviewing your responses, I've been able to diagnose you with a urinary tract infection, which is a common infection of the bladder with bacteria. This is not a sexually transmitted infection, though urinating immediately after intercourse can help prevent infections. Drinking lots of fluids is also helpful to clear your current infection and prevent the next one. I have sent a prescription for antibiotics to your pharmacy to treat this infection. It is important that you take all of your prescribed medication even if your symptoms are improvingafter a few doses. Taking all of your medicine helps prevent the symptoms from returning. If your symptoms worsen, you develop pain in your back or stomach, develop fevers, or are not improving in 5 days, please contact your primary care provider for an appointment or visit any of our convenient Walk-in or Urgent Care Centers to be seen, which can be found on our website here. Thanks again for choosing us as your health respiratory care specialist, Judith Dominique APRN CNP Urinary Tract Infection (UTI) in Women: Care Instructions Overview A urinary tract infection (UTI) is an infection caused by bacteria. It can happen anywhere in the urinary tract. A UTI can happen in the: Kidneys. Ureters, the tubes that connect the kidneys to the bladder. Bladder. Urethra, where the urine comes out. Most UTIs are bladder infections. They often cause pain or burning when you urinate. Most UTIs can be cured with antibiotics. If you are prescribed antibiotics, be sure to complete your treatment so that the infection does not get worse. Follow-up care is a so part of your treatment and safety. Be sure to make and go to all appointments, and call your doctor if you are having problems. It's also a good idea to know your test resultsand keep a list of the medicines you take. How can you care for yourself at home? Take your antibiotics as directed. Do not stop taking them just because you feel better. You need to take the full course of antibiotics. Drink extra water and other fluids for the next day or two. This will help make the urine less concentrated and help wash out the bacteria that are causing the infection. (If you have kidney, heart, or liver disease and have to limit fluids, talk with your doctor before you increase the amount of fluids you drink.) Avoid drinks that are carbonated or have caffeine. They can irritate the bladder. Urinate often. Try to empty your bladder each time. To relieve pain, take a hot bath or lay a heating pad set on low over your lower belly or genital area. Never go to sleep with a heating pad in place. To prevent UTIs Drink plenty of water each day. This helps you urinate often, which clears bacteria from your system. (If you have kidney, heart, or liver disease and have to limit fluids, talk with your doctor before you increase the amount of fluids you drink.) Urinate when you need to. If you are sexually active, urinate right after you have sex. Change sanitary pads often. Avoid douches, bubble baths, feminine hygiene sprays, and other feminine hygiene products that havedeodorants. After going to the bathroom, wipe from front to back. When should you call for help? Call your doctor now or seek immediate medical care if: ?? You have new or worse fever, chills, nausea, or vomiting. ?? You have new pain in your back just below your rib cage. This is called flank pain. ?? There is new blood or pus in your urine. ?? You have any problems with your antibiotic medicine. Watch closely for changes in your health, and be sure to contact your doctor if: ?? You are not getting better after taking an antibiotic for 2 days. ?? Your symptoms go away but then come back. Where can you learn more? Go to https://www.[employer].net/patiented Enter K848 in the search box to learn more about Urinary Tract Infection (UTI) in Women: Care Instructions. Current as of: September 10, 2023?Content Version: 14.0 ?? [employer]. Care instructions adapted under license by your healthcare professional. If you have questions about a medical condition or this instruction, always ask your healthcare professional. [employer] disclaims any warranty or liability for your use of this information. documented in this encounter Miscellaneous Notes * Telephone Encounter - Judith Dominique APRN CNP - 02/08/2024 8:36 PM CDT Provider E-Visit time total (minutes): 6 documented in this encounter Plan of Treatment Not on file documented as of this encounter Visit Diagnoses Diagnosis Acute UTI (urinary tract infection)- Primary Urinary tract infection, site not specified documented in this encounter Care Teams Library Assistant Relationship Specialty Start Date End Date David Blancas DO [address] [place] [address] [id number] PCP - General Family Medicine 09/25/22 Chetna Randhawa MD [address] [address] kayak maker 11/08/21 [place] [address] [place] [address] Assigned PCP 09/05/22 documented as of this encounter
--- OUTSIDE RECORDS SUMMARY | 2024-02-15 01:19 | XMS_ITS | Encounter Summary ---
Author Name Unknown Organization [facility] Address [address] [place] [address] Care Team Providers Care Case Technician Name Role Phone Chetna Randhawa MD Unavailable [phone] David Blancas DO Primary Care Provider [phone] David Blancas DO Unavailable [phone] Reason for Visit * Reason Comments UTI Entered automaticall y based on patient selection in [employer]. Encounter Details Date Type Department Care Team (Late st Contact Info) Description 12/02/2023 10:05 PM AIRPLANE PATROLLER E-Visit [facility] [address] [address] Roberta Oshea, PA-C [address] [id number] UTI (Entered automatically based on patien... Social History Tobacco Use Types Packs/Day Years Used Date Smoking Tobacco: Never Smokeless Tobacco: Never Alcohol Use Standard Drinks/Week Comments Not Asked 0 (1 standard drink = 0.6 oz pur e alcohol) PHQ-2 Answer Date Recorded PHQ-2 Score 0 05/08/2023 Adolescent Education Answer Date Record ed Getting [...] this encounter Patient Instructions * Patient Instructions* Roberta Oshea PA-C - 12/02/2023 10:05 PM AIRPLANE PATROLLER Dear Kerline Fontaine After reviewing your responses, [...] again for choosing us as your health rn care manager, Roberta Oshea PA-C Dear Kerline Fontaine, After reviewing your responses, I would like you to come in for a urine test to make sure we treat you correctly. This urine test is to evaluate you for a possible urinary tract infection, and shouldbe scheduled for today or tomorrow. Schedule a Lab Only appointment here. Lab appointments are not available at most locations on the weekends. If no Lab Only appointment isavailable, you should be seen in any of our convenient Walk- in or Urgent Care Centers, which can befound on our website here. You will receive instructions with your results in [employer] once they are available. If your symptoms worsen, you develop pain in your back or stomach, develop fevers, or are not improving in 5 days, please contact your primary care provider for an appointment or visit a Walk-in or Urgent Care Center to be seen. Thanks again for choosing us as your health rn care manager, Roberta Cheng. SANJU Oshea LANE PATROLLER documented in this encounter Miscellaneous Notes * Telephone Encounter - Roberta Oshea PA-C - 12/02/2023 10:05 PM AIRPLANE PATROLLER Provider E-Visit time total (minutes): [address] * Addendum Note - Roberta Oshea PA-C - 12/02/2023 10:05 PM CSTAddended by: ROBERTA OSHEA on: 12/02/2023 10:19 PM Modules accepted: Orders, Level of Service, SmartSet LANE PATROLLER documented in this encounter Plan of Treatment Not on file documented as of this encounter Results * (ABNORMAL) UA Macroscopic with reflex to Microscopic and Culture - Lab Collect (12/03/2023 11:27 AMCST) Color Urine Yellow Colorless, Straw, Light Yellow, Yellow 12/03/2023 11:46 AM AIRPLANE PATROLLER [facility] Appearance Urine Clear Clear 12/03/19 24 11:46 AM AIRPLANE PATROLLER [facility] Glucose Urine Negative Negative mg/dL 12/03/2023 11:46 AM AIRPLANE PATROLLER [facility] Bilirubin Urine Small(A) Negative 4 11:46 AM AIRPLANE PATROLLER [facility] Ketones Urine Negative Negative mg/dL 12/03/2023 11:46 AM AIRPLANE PATROLLER [facility] Specific [place] Urine >=1.030 1.003 - 1.035 12/03/2023 11:46 AM AIRPLANE PATROLLER [facility] Blood Urine Trace(A) Negative 12/03/2023 11:46 AM AIRPLANE PATROLLER [facility] pH Urine 6.0 5.0 - 7.0 12/03/2023 11:46 AM AIRPLANE PATROLLER [facility] Protein Albumin Urine 30(A) Negative mg/dL 12/03/2023 11:46 AM AIRPLANE PATROLLER [facility] Urobilinogen Urine 0.2 0.2, 1.0 E.U./dL 12/03/2023 11:46 AM AIRPLANE PATROLLER [facility] Nitrite Urine Negative Negative 12/03/2023 11:46 AM AIRPLANE PATROLLER [facility] Leukocyte Esterase Urine Negative Negative 12/03/2023 11:46 AM AIRPLANE PATROLLER [facility] Urine URINE SPECIMEN OBTAINED BY CLEAN CATCH PROCEDURE / Unknown Non-blood Collection / Unknown 12/03/2023 11:27 AM AIRPLANE PATROLLER 12/03/2023 11:31 AM AIRPLANE PATROLLER Roberta Oshea PA-C LAB - URINE ORDERABL ES LABORATORY [facility] [address] [facility] (no room number, 1st floor of clinic) [place] [address], [facility] [phone] documented in this encounter Visit Diagnoses Diagnosis Acute UTI (urinary tract infection)- Primary Urinary tract infection, site not specified documented in this encounter Care Teams Case Technician Relationship Specialty Start Date End Date David Blancas DO [address] [place] [address] [phone] PCP - General Family Medicine 09/25/22 Chetna Randhawa MD [address] [place] [address] [place] [address] will call clerk 11/08/21 David Blancas DO [address] [place] [address] Assigned PCP 09/05/22 documented as of this encounter
--- OUTSIDE RECORDS SUMMARY | 2024-02-15 01:19 | XMS_ITS | Encounter Summary ---
Author Name Unknown Organization [facility] Address [address] [place] [address] Care Team Providers Care Manager Utilization Management Name Role Phone Chetna Randhawa MD Unavailable [phone] David Blancas DO Primary Care Provider [phone] David Blancas DO Unavailable [phone] Encounter Details Date Type Department Care Team (Late st Contact Info) Description 12/10/2023 1:15 PM SUPERVISOR ORNAMENTAL IRONWORKING Lab [facility] [address] [place] [address] Lower urinary tract symptoms (LUTS) Social History Tobacco Use Types Packs/Day Years [...] on file documented as of this encounter Procedures Procedure Name Priority Date/Time Associated Diagnosis Comments UA MICROSCOPIC WITH REFLEX TO CULTURE Routine 12/10/2023 1:20 PM SUPERVISOR ORNAMENTAL IRONWORKING Lower urinary tract symptoms (LUTS) UA MACROSCOPIC WITH REFLEX TO MICRO AND CULTURE Routine 12/10/2023 1:20 PM SUPERVISOR ORNAMENTAL IRONWORKING Lower urinary tract symptoms (LUTS) WET PREPARATION Routine 12/10/2023 1:20 PM SUPERVISOR ORNAMENTAL IRONWORKING Lower urinary tract symptoms (LUTS) documented in this encounter Results * (ABNORMAL) UA Microscopic with Reflex to Culture (12/10/2023 1:20 PM SUPERVISOR ORNAMENTAL IRONWORKING) Bacteria Urine Moderate( A) None Seen /HPF NIRANJAN 12/10/2023 1:29 PM SUPERVISOR ORNAMENTAL IRONWORKING [facility] RBC Urine 0-2 0-2 /HPF /HPF NIRANJAN 12/10/2023 1:29 PM SUPERVISOR ORNAMENTAL IRONWORKING [facility] WBC Urine 0-5 0-5 /HPF /HPF NIRANJAN 12/10/2023 1:29 PM SUPERVISOR ORNAMENTAL IRONWORKING [facility] Squamous Epithelials Urine Moderate( A) None Seen /LPF NIRANJAN 12/10/2023 1:29 PM SUPERVISOR ORNAMENTAL IRONWORKING [facility] Urine MID-STREAM URINE SPECIMEN / Unknown Non-blood Collection / Unknown 12/10/2023 1:20 PM SUPERVISOR ORNAMENTAL IRONWORKING 12/10/2023 1:20 PM SUPERVISOR ORNAMENTAL IRONWORKING Narrative [facility] - 12/10/2023 1:29 PM SUPERVISOR ORNAMENTAL IRONWORKING Urine Culture not indicated Violet Castaneda PA-C LAB - URINE ORDERABL ES LABORATORY [facility] [address] [facility] (no room number, 1st floor of clinic) [place] [address], [facility] [phone] * (ABNORMAL) UA Macroscopic with reflex to Microscopic and Culture - Clinic Collect (12/10/2023 1:20 PM SUPERVISOR ORNAMENTAL IRONWORKING) Color Urine Yellow Colorless, Straw, Light Yellow, Yellow 12/10/2023 1:28 PM SUPERVISOR ORNAMENTAL IRONWORKING LABORATORY Appearance Urine Clear Clear 12/10/19 24 1:28 PM SUPERVISOR ORNAMENTAL IRONWORKING LABORATORY Glucose Urine Negative Negative mg/dL 12/10/2023 1:28 PM SUPERVISOR ORNAMENTAL IRONWORKING LABORATORY Bilirubin Urine Negative Negative 1:28 PM SUPERVISOR ORNAMENTAL IRONWORKING LABORATORY Ketones Urine Trace(A) Negative mg/dL 12/10/2023 1:28 PM SUPERVISOR ORNAMENTAL IRONWORKING LABORATORY Specific [place] Urine 1.025 1.003 - 1.035 12/10/2023 1:28 PM SUPERVISOR ORNAMENTAL IRONWORKING LABORATORY Blood Urine Trace(A) Negative 12/10/2023 1:28 PM SUPERVISOR ORNAMENTAL IRONWORKING LABORATORY pH Urine 5.5 5.0 - 7.0 12/10/2023 1:28 PM SUPERVISOR ORNAMENTAL IRONWORKING LABORATORY Protein Albumin Urine Negative Negative mg/dL 12/10/2023 1:28 PM SUPERVISOR ORNAMENTAL IRONWORKING LABORATORY Urobilinogen Urine 0.2 0.2, 1.0 E.U./dL 12/10/2023 1:28 PM SUPERVISOR ORNAMENTAL IRONWORKING LABORATORY Nitrite Urine Negative Negative 12/10/2023 1:28 PM SUPERVISOR ORNAMENTAL IRONWORKING LABORATORY Leukocyte Esterase Urine Trace(A) Negative 12/10/2023 1:28 PM SUPERVISOR ORNAMENTAL IRONWORKING LABORATORY Urine MID-STREAM URINE SPECIMEN / Unknown Non-blood Collection / Unknown 12/10/2023 1:20 PM SUPERVISOR ORNAMENTAL IRONWORKING 12/10/2023 1:20 PM SUPERVISOR ORNAMENTAL IRONWORKING Violet Castaneda PA-C LAB - URINE ORDERABL ES LABORATORY [facility] [address] [facility] (no room number, 1st floor of clinic) [place] [address], [facility] [phone] * (ABNORMAL) Wet prep - Clinic Collect (12/10/2023 1:20 PM SUPERVISOR ORNAMENTAL IRONWORKING) Trichomonas Absent Absent NIRANJAN 12/10/2023 1:28 PM SUPERVISOR ORNAMENTAL IRONWORKING [facility] Yeast Absent Absent NIRANJAN 12/10/2023 1:28 PM SUPERVISOR ORNAMENTAL IRONWORKING RM LAB[facility]ORY Clue Cells Absent Absent NIRANJAN 12/10/2023 1:28 PM SUPERVISOR ORNAMENTAL IRONWORKING RM LAB[facility]ORY WBCs/high power field 1+(A) None NIRANJAN 12/10/2023 1:28 PM SUPERVISOR ORNAMENTAL IRONWORKING RM LAB[facility]ORY Swab VAGINAL STRUCTURE / Unknown Non-blood Collection / Unknown 12/10/2023 1:20 PM SUPERVISOR ORNAMENTAL IRONWORKING 12/10/2023 1:20 PM SUPERVISOR ORNAMENTAL IRONWORKING Violet Castaneda PA-C LAB - MICRO GENERAL ORDERABLES RM LAB[facility]ATORY [facility] [address] [facility] (no room number, 1st floor of clinic) [place] [address], [facility] [phone] documented in this encounter Visit Diagnoses Diagnosis Lower urinary tract symptoms (LUTS) Other symptoms involving urinary system documented in this encounter Care Teams Manager Utilization Management Relationship Specialty Start Date End Date David Blancas DO [address] [place] [address] [id number] PCP - General Family Medicine 09/25/22 Chetna Randhawa MD [address] [address] records officer 11/08/21 David Blancas DO [address] [place] [address] [id number] Assigned PCP 09/05/22 documented as of this encounter
--- OUTSIDE RECORDS SUMMARY | 2024-02-15 01:19 | XMS_ITS | Encounter Summary ---
Author Name Unknown Organization [facility] Address [address] [place] [address]. [place] [address] Care Team Providers Care Privacy Officer Name Role Phone Chetna Randhawa MD Unavailable [phone] David Blancas DO Primary Care Provider David Blancas DO Unavailable [phone] Reason for Visit * Reason Comments UTI Entered automaticall y based on patient selection in [employer]. Encounter Details Date Type Department Care Team (Late st Contact Info) Description 12/18/2023 9:20 PM DETENTION DEPUTY E-Visit [facility] [address] [address] Garima Wu, BEHAVIORAL CONSULTANT [address] [place] [address] UTI (Entered automatically based on patien... Social [...] this encounter Patient Instructions * Patient Instructions* Garima Wu NP - 12/18/2023 9:20 PM DETENTION DEPUTY Dear Kerline Fontaine, We are sorry you are not feeling well. Based on the responses you provided, you may be experiencinga serious health condition that needs immediate in-person attention. It is recommended that you be seen in the emergency room in order to better evaluate your symptoms. Please click here to find the nearest Emergency Room. Koko Jorge NP NTION DEPUTY documented in this encounter Plan of Treatment Not on file documented as of this encounter Visit Diagnoses Diagnosis Dysuria- Primary documented in this encounter Care Teams Privacy Officer Relationship Specialty Start Date End Date David Blancas DO [address] [place], [place] 330882 PCP - General Family Medicine 09/25/22 Chetna Randhawa MD [address] [place] [address] carpet journeyman 11/08/21 David Blancas DO [address] [place] [address] Assigned PCP 09/05/22 documented as of this encounter
--- OUTSIDE RECORDS SUMMARY | 2024-02-15 01:19 | XMS_ITS | Encounter Summary ---
Author Name Unknown Organization [facility] Address [address] [place] [address]. [place] [address] Care Team Providers Care Plastic Cablemaking Machine Operator Name Role Phone Chetna Randhawa MD Unavailable [phone] David Blancas DO Primary Care Provider [phone] David Blancas DO Unavailable [phone] Encounter Details Date Type Department Care Team (Latest Contact Info) Description 01/16/2024 Travel Social History Tobacco Use Types Packs/Day [...] on filedocumented in this encounter Care Teams Plastic Cablemaking Machine Operator Relationship Specialty [place] [address] [place] [address] [id number] PCP - General Family Medicine 09/25/22 Chetna Randhawa MD [address] [address] nocturnist physician 11/08/21 [place] [address] [place] [address] [id number] Assigned PCP 09/05/22 documented as of this encounter
--- OUTSIDE RECORDS SUMMARY | 2024-02-15 01:19 | XMS_ITS | Encounter Summary ---
Author Name Unknown Organization [facility] Address [address] [place] [address] Care Team Providers Care Dietary Manager Name Role Phone Chetna Randhawa MD Unavailable [phone] David Blancas DO Primary Care Provider David Blancas DO Unavailable [phone] Reason for Visit * Reason Comments UTI Entered automaticall y based on patient selection in [employer]. Encounter Details Date Type Department Care Team (Late st Contact Info) Description 12/09/2023 7:25 PM BURN OUT TENDER LACE E-Visit [facility] [address] [address] Violet Castaneda PA-C [address] [place] [address] UTI (Entered automatically based on patien... Social [...] this encounter Patient Instructions * Patient Instructions* Violet Castaneda PA-C - 12/09/2023 7:25 PM BURN OUT TENDER LACE Dear Kerline Fontaine, We are sorry you are not feeling well. Based on the responses you provided, it is recommended that you be seen in-person in urgent care so we can better evaluate your symptoms. Please click here to find the nearest urgent care location to you. You will not be charged for this Visit. Thank you for trusting us with your care. Violet Castaneda PA-C OUT TENDER LACE documented in this encounter Miscellaneous Notes * Telephone Encounter - Violet Castaneda PA-C - 12/09/2023 8:50 PM CST Provider E-Visit time total (minutes): 3 OUT TENDER LACE documented in this encounter Plan of Treatment Not on file documented as of this encounter Visit Diagnoses Diagnosis Lower urinary tract symptoms (LUTS)- Primary Other symptoms involving urinary system documented in this encounter Care Teams Dietary Manager Relationship Specialty Start Date End Date David Blancas DO [address] [place] [address], [place] [address] PCP - General Family Medicine 09/25/22 Chetna Randhawa MD [address] [place] [address] licensed journeyman electrician 11/08/21 [place] [address] [place] [address] Assigned PCP 09/05/22 documented as of this encounter
--- OUTSIDE RECORDS SUMMARY | 2024-02-15 01:19 | XMS_ITS | Encounter Summary ---
Author Name Unknown Organization [facility] Address [address] [place] [address]. [place] [address] Care Team Providers Care Dial Polisher Name Role Phone Chetna Randhawa MD Unavailable [phone] David Blancas DO Primary Care Provider [phone] David Blancas DO Unavailable [phone] Encounter Details Date Type Department Care Team (Latest Contact Info) Description 01/10/2024 Travel Social History Tobacco Use Types Packs/Day [...] on filedocumented in this encounter Care Teams Dial Polisher Relationship Specialty [place] [address] [place] [address] [id number] PCP - General Family Medicine 09/25/22 Chetna Randhawa MD [address] [address] marketer 11/08/21 [place] [address] [place] [address] [id number] Assigned PCP 09/05/22 documented as of this encounter
--- OUTSIDE RECORDS SUMMARY | 2024-02-15 01:19 | XMS_ITS | Encounter Summary ---
Author Name Unknown Organization [place] Address [address] [place] [address] Care Team Providers Care Drafter Mechanical Name Role Phone Chetna Randhawa MD Unavailable [phone] David Blancas DO Primary Care Provider David Blancas DO Unavailable [phone] Encounter Details Date Type Department Care Team (Late st Contact Info) Description 12/09/2023 Orders Only M [facility] [address] [place] [address] Violet Castaneda PA-C [address] [place] [address] [phone] Lower urinary tract symptoms (LUTS) (Primary Dx) Social History Tobacco Use Types Packs/Day Years [...] documented as of this encounter Progress Notes * Violet Castaneda PA-C - 12/09/2023 8:56 PM CST 1. Lower urinary tract symptoms (LUTS) - Wet prep - Clinic Collect; Future DEADENER documented in this encounter Plan of Treatment Not on file documented as of this encounter Results * (ABNORMAL) Wet prep - Clinic Collect (12/10/2023 1:20 PM TREE DEADENER) Trichomonas Absent Absent NIRANJAN 12/10/2023 1:28 PM TREE DEADENER RM LABORATORY Yeast Absent Absent NIRANJAN 12/10/2023 1:28 PM TREE DEADENER RM LABORATORY Clue Cells Absent Absent NIRANJAN 12/10/2023 1:28 PM TREE DEADENER RM LABORATORY WBCs/high power field 1+(A) None NIRANJAN 12/10/2023 1:28 PM TREE DEADENER RM LABORATORY Swab VAGINAL STRUCTURE / Unknown Non-blood Collection / Unknown 12/10/2023 1:20 PM TREE DEADENER 12/10/2023 1:20 PM TREE DEADENER Violet Castaneda PA-C LAB - MICRO GENERAL ORDERABLES LABORATORY [facility] - [place] [facility] [address] [facility] (no room number, 1st floor of clinic) [place] [id number] [[email or web address]] [phone] documented in this encounter Visit Diagnoses Diagnosis Lower urinary tract symptoms (LUTS)- Primary Other symptoms involving urinary system documented in this encounter Care Teams Drafter Mechanical Relationship Specialty Start Date End Date David Blancas DO [address] [place] [address] PCP - General Family Medicine 09/25/22 Chetna Randhawa MD [address] [address] transport tech 11/08/21 [place] [address] [place] [address] Assigned PCP 09/05/22 documented as of this encounter
--- OUTSIDE RECORDS SUMMARY | 2024-02-15 01:19 | XMS_ITS | Encounter Summary ---
Author Name Unknown Organization [place] Address [address] [place] [address] Care Team Providers Care Nutrition Specialist Name Role Phone Chetna Randhawa MD Unavailable [phone] David Blancas DO Primary Care Provider David Blancas DO Unavailable [phone] Encounter Details Date Type Department Care Team (Late st Contact Info) Description 12/03/[address] [facility] [address] [place] [address] Toby Stephens, PAJayleenC [address] [place], [place] [phone] Social History Tobacco Use Types Packs/Day Years [...] of this encounter Visit Diagnoses Diagnosis Acute cystitis without hematuria- Primary Acute cystitis documented in this encounter Care Teams Nutrition Specialist Relationship Specialty Start Date End Date David Blancas DO [address] [place] [address]152 PCP - General Family Medicine 09/25/22 Chetna Randhawa MD [address] [address] director of trauma 11/08/21 David Blancas DO [address] [place] [address] [phone] Assigned PCP 09/05/22 documented as of this encounter
--- OUTSIDE RECORDS SUMMARY | 2024-02-15 01:19 | XMS_ITS | Encounter Summary ---
Author Name Unknown Organization [place] Address [address] [place] [address]. [place] [address] Care Team Providers Care Web Support Engineer Name Role Phone Chetna Randhawa MD Unavailable [phone] David Blancas DO Primary Care Provider [phone] David Blancas DO Unavailable [phone] Encounter Details Date Type Department Care Team (Latest Contact Info) Description 12/03/2023 Travel Social History Tobacco Use Types Packs/Day [...] on filedocumented in this encounter Care Teams Web Support Engineer Relationship Specialty [place] [address] [place] [address] 188952 PCP - General Family Medicine 09/25/22 Chetna Randhawa MD [address] [address] fondant puff maker 11/08/21 [place] [address] [place] [address] [phone] Assigned PCP 09/05/22 documented as of this encounter
--- OUTSIDE RECORDS SUMMARY | 2024-02-15 01:19 | XMS_ITS | Encounter Summary ---
Author Name Unknown Organization [place] Address [address] [place] [address]. [place] [address] Care Team Providers Care Android Architect Name Role Phone Chetna Randhawa MD Unavailable [phone] David Blancas DO Primary Care Provider [phone] David Blancas DO Unavailable [phone] Encounter Details Date Type Department Care Team (Latest Contact Info) Description 12/10/2023 Travel Social History Tobacco Use Types Packs/Day [...] on filedocumented in this encounter Care Teams Android Architect Relationship Specialty [place] [address] [place] [address] [id number] PCP - General Family Medicine 09/25/22 Chetna Randhawa MD [address] [address] transfer professor 11/08/21 [place] [address] [place] [address] [id number] Assigned PCP 09/05/22 documented as of this encounter
--- OUTSIDE RECORDS SUMMARY | 2024-02-15 01:19 | XMS_ITS | Encounter Summary ---
Author Name Unknown Organization [place] Address [address] [place] [address] Care Team Providers Care Weight Calculator Name Role Phone Chetna Randhawa MD Unavailable [phone] David Blancas DO Primary Care Provider [phone] David Blancas DO Unavailable [phone] Encounter Details Date Type Department Care Team (Late st Contact Info) Description 12/09/2023 Orders Only M [facility] [address] [place] [address] Violet Castaneda PA-C [address] [place] [address] [phone] Lower urinary tract symptoms (LUTS) (Primary Dx) [...] Notes * Violet Castaneda PA-C - 12/09/2023 9:07 PM CST 1. Lower urinary tract symptoms (LUTS) - UA Macroscopic with reflex to Microscopic and Culture - Clinic Collect; Future ENFORCEMENT DIRECTOR documented in this encounter Plan of Treatment Not on file documented as of this encounter Results * (ABNORMAL) UA Macroscopic with reflex to Microscopic and Culture - Clinic Collect (12/10/2023 1:20 PM LAW ENFORCEMENT DIRECTOR) Color Urine Yellow Colorless, Straw, Light Yellow, Yellow 12/10/2023 1:28 PM LAW ENFORCEMENT DIRECTOR LABORATORY Appearance Urine Clear Clear 12/10/19 24 1:28 PM LAW ENFORCEMENT DIRECTOR LABORATORY Glucose Urine Negative Negative mg/dL 12/10/2023 1:28 PM LAW ENFORCEMENT DIRECTOR LABORATORY Bilirubin Urine Negative Negative 4 1:28 PM LAW ENFORCEMENT DIRECTOR LABORATORY Ketones Urine Trace(A) Negative mg/dL 12/10/2023 1:28 PM [facility] LABORATORY Specific [place] Urine 1.025 1.003 - 1.035 12/10/2023 1:28 PM LAW ENFORCEMENT DIRECTOR LABORATORY Blood Urine Trace(A) Negative 12/10/2023 1:28 PM LAW ENFORCEMENT DIRECTOR LABORATORY pH Urine 5.5 5.0 - 7.0 12/10/2023 1:28 PM [facility] LAB[facility] Protein Albumin Urine Negative Negative mg/dL 12/10/2023 1:28 PM LAW ENFORCEMENT DIRECTOR LABORATORY Urobilinogen Urine 0.2 0.2, 1.0 E.U./dL 12/10/2023 1:28 PM LAW ENFORCEMENT DIRECTOR LABORATORY Nitrite Urine Negative Negative 12/10/2023 1:28 PM LAW ENFORCEMENT DIRECTOR LABORATORY Leukocyte Esterase Urine Trace(A) Negative 12/10/2023 1:28 PM LAW ENFORCEMENT DIRECTOR LABORATORY Urine MID-STREAM URINE SPECIMEN / Unknown Non-blood Collection / Unknown 12/10/2023 1:20 PM LAW ENFORCEMENT DIRECTOR 12/10/2023 1:20 PM LAW ENFORCEMENT DIRECTOR Violet Castaneda PAJosy LAB - URINE ORDERABL ES LABORATORY [facility] - [place] [facility] [address] [facility] (no room number, 1st floor of clinic) [place] [address], [facility] [phone] documented in this encounter Visit Diagnoses Diagnosis Lower urinary tract symptoms (LUTS)- Primary Other symptoms involving urinary system documented in this encounter Care Teams Weight Calculator Relationship Specialty Start Date End Date David Blancas DO [address] [place] [address] [phone] PCP - General Family Medicine 09/25/22 Chetna Randhawa MD [address] [facility] [address] [place] [address] business systems administrator 11/08/21 David Blancas DO [address] [place] [address] Assigned PCP 09/05/22 documented as of this encounter
--- OUTSIDE RECORDS SUMMARY | 2024-02-15 01:19 | XMS_ITS | Encounter Summary ---
Author Name Unknown Organization [place] Address [address] [place] [address] Care Team Providers Care Swing Saw Operator Name Role Phone Chetna Randhawa MD Unavailable [phone] David Blancas DO Primary Care Provider David Blancas DO Unavailable [phone] Reason for Visit * Reason Comments UTI Entered automaticall y based on patient selection in [employer]. Encounter Details Date Type Department Care Team (Late st Contact Info) Description 01/09/2024 1:05 AM CDT E-Visit [facility] [address] [phone] Jazmine Pruitt, ALDA [address] [phone] UTI (Entered automatically based on patien... Social [...] this encounter Patient Instructions * Patient Instructions* Jazmine Pruitt CNP - 01/09/2024 1:05 AM CDT Dear Kerline Fontaine After reviewing your responses, [...] again for choosing us as your health home care scheduler, Jazmine Pruitt CNP documented in this encounter Miscellaneous Notes * Telephone Encounter - Jazmine Pruitt CNP - 01/09/2024 5:36 AM CDT Provider E-Visit time total (minutes): 3 * Addendum Note - Jazmine Pruitt CNP - 01/09/2024 1:05 AM CDTAddended by: JAZMINE PRUITT on: 01/09/2024 05:47 AM Modules accepted: Orders * Addendum Note - Jazmine Pruitt CNP - 01/09/2024 1:05 AM CDTAddended by: JAZMINE PRUITT on: 01/09/2024 06:34 AM Modules accepted: Orders documented in this encounter Plan of Treatment Not on file documented as of this encounter Results * (ABNORMAL) Wet prep - Clinic Collect (01/10/2024 3:30 PM CDT) Trichomonas Absent Absent NIRANJAN 01/10/2024 3:41 PM CDT LABORATORY Yeast Absent Absent NIRANJAN 01/10/2024 3:41 PM CDT LABORATORY Clue Cells Absent Absent NIRANJAN 01/10/2024 3:41 PM CDT LABORATORY WBCs/high power field 3+(A) None NIRANJAN 01/10/2024 3:41 PM CDT LABORATORY Swab VAGINAL STRUCTURE / Unknown Non-blood Collection / Unknown 01/10/2024 3:30 PM CDT 01/10/2024 3:30 PM CDT Jazmine Pruitt CNP LAB - MICRO GENER AL ORDERABLES LABORATORY [facility] [address] [facility] (no room number, 1st floor of clinic) [place] [address], [facility] [phone] * (ABNORMAL) UA Macroscopic with reflex to Microscopic and Culture - Clinic Collect (01/10/2024 3:30 PM CDT) Color Urine Yellow Colorless, Straw, Light Yellow, Yellow 01/10/2024 3:34 PM CDT LV LABORATORY Appearance Urine Clear Clear 01/10/20 3:34 PM CDT LV LABORATORY Glucose Urine Negative Negative mg/dL 01/10/2024 3:34 PM CDT LV LABORATORY Bilirubin Urine Negative Negative 3:34 PM CDT LV LABORATORY Ketones Urine Negative Negative mg/dL 01/10/2024 3:34 PM CDT LV LABORATORY Specific [place] Urine 1.015 1.003 - 1.035 01/10/2024 3:34 PM CDT LV LABORATORY Blood Urine Trace(A) Negative 01/10/2024 3:34 PM CDT LV LABORATORY pH Urine 7.0 5.0 - 7.0 01/10/2024 3:34 PM CDT LV LABORATORY Protein Albumin Urine Negative Negative mg/dL 01/10/2024 3:34 PM CDT LV LABORATORY Urobilinogen Urine 0.2 0.2, 1.0 E.U./dL 01/10/2024 3:34 PM CDT LV LABORATORY Nitrite Urine Negative Negative 01/10/2024 3:34 PM CDT LV LABORATORY Leukocyte Esterase Urine Negative Negative 01/10/2024 3:34 PM CDT LV LABORATORY Urine MID-STREAM URINE SPECIMEN / Unknown Non-blood Collection / Unknown 01/10/2024 3:30 PM CDT 01/10/2024 3:30 PM CDT Jazmine Pruitt CNP LAB - URINE ORDER ALAYNA LABORATORY [facility] [address] [facility] (no room number, 1st floor of clinic) [place] [address], [facility] [phone] documented in this encounter Visit Diagnoses Diagnosis Acute UTI (urinary tract infection)- Primary Urinary tract infection, site not specified Dysuria documented in this encounter Care Teams Swing Saw Operator Relationship Specialty [place] [address] [place] [address] PCP - General Family Medicine 09/25/22 Chetna Randhawa MD [address] [address] automatic thread winder 11/08/21 David Blancas DO [address] [place] [address] Assigned PCP 09/05/22 documented as of this encounter
--- OUTSIDE RECORDS SUMMARY | 2024-02-15 01:19 | XMS_ITS | Encounter Summary ---
Author Name Unknown Organization [place] Address [address] [place] [address] Care Team Providers Care Fabric And Accessories Estimator Name Role Phone Chetna Randhawa MD Unavailable [phone] David Blancas DO Primary Care Provider [phone] David Blancas DO Unavailable [phone] Encounter Details Date Type Department Care Team (Late st Contact Info) Description 12/03/2023 11:30 AM [facility] Lab [facility] Laboratory [address] [place] [address] Acute UTI (urinary tract infection) Social History Tobacco Use Types Packs/Day Years [...] REFLEX TO CULTURE Routine 12/03/2023 11:27 AM ADVERTISING DIRECTOR Acute UTI (urinary tract infection) UA MACROSCOPIC WITH REFLEX TO MICRO AND CULTURE Routine 12/03/2023 11:27 AM ADVERTISING DIRECTOR Acute UTI (urinary tract infection) URINE CULTURE Routine 12/03/2023 11:27 AM ADVERTISING DIRECTOR Acute UTI (urinary tract infection) documented in this encounter Results * Urine Culture (12/03/2023 11:27 AM ADVERTISING DIRECTOR) Culture <10,000 CFU/mL Mixture of Urogenital Cristy 12/04/2023 6:05 AM ADVERTISING DIRECTOR [facility] Urine URINE SPECIMEN OBTAINED BY CLEAN CATCH PROCEDURE / Unknown Non-blood Collection / Unknown 12/03/2023 11:27 AM ADVERTISING DIRECTOR 12/03/2023 11:47 AM ADVERTISING DIRECTOR Toby Stephens PA-C LAB - MICRO GENERAL ORDERABLES [facility] LABORATORY [facility] [address] [facility], [address] [place] [address], [facility] [phone] * (ABNORMAL) UA Microscopic with Reflex to Culture (12/03/2023 11:27 AM ADVERTISING DIRECTOR) Bacteria Urine Many(A) None Seen /HPF NIRANJAN 12/03/2023 11:48 AM ADVERTISING DIRECTOR LABORATORY RBC Urine 2-5(A) 0-2 /HPF /HPF NIRANJAN 12/03/2023 11:48 AM ADVERTISING DIRECTOR LABORATORY WBC Urine 10-25(A) 0-5 /HPF /HPF NIRANJAN 12/03/2023 11:48 AM ADVERTISING DIRECTOR LABORATORY Squamous Epithelials Urine Many(A) None Seen /LPF NIRANJAN 12/03/2023 11:48 AM ADVERTISING DIRECTOR LABORATORY Urine URINE SPECIMEN OBTAINED BY CLEAN CATCH PROCEDURE / Unknown Non-blood Collection / Unknown 12/03/2023 11:27 AM ADVERTISING DIRECTOR 12/03/2023 11:31 AM ADVERTISING DIRECTOR Toby Stephens PA-C LAB - URINE ORDERABL ES LV LABORATORY [facility] [address] [facility] (no room number, 1st floor of clinic) [place] [address], [facility] [phone] * (ABNORMAL) UA Macroscopic with reflex to Microscopic and Culture - Lab Collect (12/03/2023 11:27 AMCST) Color Urine Yellow Colorless, Straw, Light Yellow, Yellow 12/03/2023 11:46 AM [facility] LABORATORY Appearance Urine Clear Clear 12/03/19 24 11:46 AM [facility] LABORATORY Glucose Urine Negative Negative mg/dL 12/03/2023 11:46 AM [facility] LABORATORY Bilirubin Urine Small(A) Negative 11:46 AM [facility] LABORATORY Ketones Urine Negative Negative mg/dL 12/03/2023 11:46 AM [facility] LABORATORY Specific [place] Urine >=1.030 1.003 - 1.035 12/03/2023 11:46 AM [facility] LABORATORY Blood Urine Trace(A) Negative 12/03/2023 11:46 AM [facility] LABORATORY pH Urine 6.0 5.0 - 7.0 12/03/2023 11:46 AM [facility] LABORATORY Protein Albumin Urine 30(A) Negative mg/dL 12/03/2023 11:46 AM ADVERTISING DIRECTOR LABORATORY Urobilinogen Urine 0.2 0.2, 1.0 E.U./dL 12/03/2023 11:46 AM ADVERTISING DIRECTOR LV LABORATORY Nitrite Urine Negative Negative 12/03/2023 11:46 AM ADVERTISING DIRECTOR LV LABORATORY Leukocyte Esterase Urine Negative Negative 12/03/2023 11:46 AM ADVERTISING DIRECTOR LV LABORATORY Urine URINE SPECIMEN OBTAINED BY CLEAN CATCH PROCEDURE / Unknown Non-blood Collection / Unknown 12/03/2023 11:27 AM ADVERTISING DIRECTOR 12/03/2023 11:31 AM ADVERTISING DIRECTOR Toby Stephens PA-C LAB - URINE ORDERABL ES LV LABORATORY [facility] [address] [facility] (no room number, 1st floor of clinic) [place] [address], [facility] [phone] documented in this encounter Visit Diagnoses Diagnosis Acute UTI (urinary tract infection) Urinary tract infection, site not specified documented in this encounter Care Teams Fabric And Accessories Estimator Relationship Specialty Start Date End Date David Blancas DO [address] [place] [address] [phone] PCP - General Family Medicine 09/25/22 Chetna Randhawa MD [address] [address] business assistant 11/08/21 David Blancas DO [address] [place] [address] [phone] Assigned PCP 09/05/22 documented as of this encounter
--- OUTSIDE RECORDS SUMMARY | 2024-02-15 01:19 | XMS_ITS | Encounter Summary ---
Author Name Unknown Organization [place] Address [address] [place] [address] Care Team Providers Care Editor Continuity And Script Name Role Phone Chetna Randhawa MD Unavailable [phone] David Blancas DO Primary Care Provider [phone] David Blancas DO Unavailable [phone] Encounter Details Date Type Department Care Team (Late st Contact Info) Description 01/10/2024 3:30 PM CDT Lab [facility] Laboratory [address] [place] [address] Dysuria Social History Tobacco Use Types Packs/Day Years [...] 3:30 PM CDT Dysuria WET PREPARATION Routine 01/10/2024 3:30 PM CDT Dysuria documented in this encounter Results * (ABNORMAL) UA Microscopic with Reflex to Culture (01/10/2024 3:30 PM CDT) Bacteria Urine Moderate( A) None Seen /HPF [...] CDT Urine Culture not indicated Jazmine Pruitt DAIRY ASSOCIATE LAB - URINE ORDER ALAYNA LV LABORATORY [facility] [address] [facility] (no room number, 1st floor of [facility]) [place] [address], [facility] [phone] * (ABNORMAL) Wet prep - Clinic Collect (01/10/2024 3:30 PM CDT) Trichomonas Absent Absent NIRANJAN 01/10/2024 3:41 PM CDT LV LABORATORY Yeast Absent Absent NIRANJAN 01/10/2024 3:41 PM CDT LV LABORATORY Clue Cells Absent Absent NIRANJAN 01/10/2024 3:41 PM CDT LV LABORATORY WBCs/high power field 3+(A) None NIRANJAN 01/10/2024 3:41 PM CDT LV LABORATORY Swab VAGINAL STRUCTURE / Unknown Non-blood Collection / Unknown 01/10/2024 3:30 PM CDT 01/10/2024 3:30 PM CDT Jazmine Pruitt [facility] LAB - MICRO GENER AL ORDERABLES LABORATORY [facility] [address] [facility] (no room number, 1st floor of [facility]) [place] [id number], [facility] [phone] * (ABNORMAL) UA Macroscopic with reflex to Microscopic and Culture - Clinic Collect (01/10/2024 3:30 PM CDT) Color Urine Yellow Colorless, Straw, Light Yellow, Yellow 01/10/2024 3:34 PM CDT LV LABORATORY Appearance Urine Clear Clear 01/10/20 24 3:34 PM CDT LV LABORATORY Glucose Urine Negative Negative mg/dL 01/10/2024 3:34 PM CDT LV LABORATORY Bilirubin Urine Negative Negative 3:34 PM CDT LV LABORATORY Ketones Urine Negative Negative mg/dL 01/10/2024 3:34 PM CDT LV LABORATORY Specific [place] Urine 1.015 1.003 - 1.035 01/10/2024 3:34 [...] CDT 01/10/2024 3:30 PM CDT Jazmine Pruitt DAIRY ASSOCIATE LAB - URINE ORDER ALAYNA LV LABORATORY [facility] [address] [facility] (no room number, 1st floor of [facility]) [place] [address] [phone] documented in this encounter Visit Diagnoses Diagnosis Dysuria documented in this encounter Care Teams Editor Continuity And Script Relationship Specialty Start Date End Date David Blancas DO [address] [place] [address] [phone] PCP - General Family Medicine 09/25/22 Chetna Randhawa MD [address] [facility] [address] [place] [address] mechanical energy engineer 11/08/21 David Blancas DO [address] [place] [address] [id number] Assigned PCP 09/05/22 documented as of this encounter
--- OUTSIDE RECORDS SUMMARY | 2024-02-15 01:19 | XMS_ITS | Encounter Summary ---
Author Name Unknown Organization [facility] [place] Address [address] [place] [address]. [place] [address] Care Team Providers Care Automobile Parker Name Role Phone Chetna Randhawa MD Unavailable David Blancas DO Primary Care Provider [phone] David Blancas DO Unavailable [phone] Encounter Details Date Type Department Care Team (Latest Contact Info) Description 02/12/2024 Travel Social History Tobacco Use Types Packs/Day [...] on filedocumented in this encounter Care Teams Automobile Parker Relationship Specialty [place] [address] [place] [address] [id number] PCP - General Family Medicine 09/25/22 Chetna Randhawa MD [address] [address] web methods developer 11/08/21 [place] [address] [place] [address] [id number] Assigned PCP 09/05/22 documented as of this encounter
--- OUTSIDE RECORDS SUMMARY | 2024-02-15 01:19 | XMS_ITS | Referral Summary ---
Author Name Unknown Organization [facility] Address [address] [place] [address] Care Team Providers Care Production Painter Name Role Phone Chetna Randhawa MD Unavailable David Blancas DO Primary Care Provider David Blancas DO Unavailable [phone] Encounters Date Type Department Care Team Description 02/12/2024 Travel 02/12/2024 4:00 PM CDT Office Visit [address] [address] David Britton MD Dysuria (Primary Dx); Screening for STDs (sexually transmitted diseases); Recurrent UTI 02/12/2024 12:20 AM CDT E-Visit [facility] [address] [place] [phone] Jenae Lepe PA-C UTI (Entered automatically based on patien... 02/08/2024 8:40 PM CDT E-Visit [facility] [address] [place] [phone] Judith Dominique APRN CNP UTI (Entered automatically based on patien... 01/16/2024 Travel 01/10/2024 Travel 01/10/2024 3:30 PM CDT Lab [facility] [address] [place] [address] Dysuria 01/09/2024 1:05 AM CDT E-Visit [facility] [address] [phone] Jazmine Pruitt CNP UTI (Entered automatically based on patien... 12/18/2023 9:20 PM PIPING DRAFTER E-Visit [facility] [address] [address] Garima Wu, YURIDIA UTI (Entered automatically based on patien... 12/10/2023 Travel 12/10/2023 1:15 PM PIPING DRAFTER Lab [facility] [address] [place] [phone] Lower urinary tract symptoms (LUTS) 12/09/2023 Orders Only [address] [phone] Violet Castaneda PA-C Lower urinary tract symptoms (LUTS) (Primary Dx) 12/09/2023 Orders Only [address] [address] Violet Castaneda PA-C Lower urinary tract symptoms (LUTS) (Primary Dx) 12/09/2023 7:25 PM PIPING DRAFTER E-Visit [facility] [address] [address] Violet Castaneda PA-C UTI (Entered automatically based on patien... 12/03/[address] [phone] Toby Stephens PA-C 12/03/2023 Travel 12/03/2023 11:30 AM PIPING DRAFTER Lab [facility] [address] [place] [address] Acute UTI (urinary tract infection) 12/02/2023 10:05 PM PIPING DRAFTER E-Visit [facility] [address] [place] [phone] Toby Stephens, SANJU UTI (Entered automatically based on patien... from Last 3 Months Allergies Active Allergy Reactions Criticality Noted Date [...] Diagnosed Date Resolved Date Dehydration 06/27/2020 10/03/2022 Immunizations Name Administration Dates Next Due Comvax [...] 02/12/2024 4:01 PM CDT Plan of Treatment Not on file Procedures Procedure Name Priority Date/Time Associated Diagnosis [...] Dysuria WET PREPARATION Routine 12/10/2023 1:20 PM PIPING DRAFTER Lower urinary tract symptoms (LUTS) UA MICROSCOPIC WITH REFLEX TO CULTURE Routine 12/10/2023 1:20 PM PIPING DRAFTER Lower urinary tract symptoms (LUTS) UA MACROSCOPIC WITH REFLEX TO MICRO AND CULTURE Routine 12/10/2023 1:20 PM PIPING DRAFTER Lower urinary tract symptoms (LUTS) URINE CULTURE Routine 12/03/2023 11:27 AM PIPING DRAFTER Acute UTI (urinary tract infection) UA MICROSCOPIC WITH REFLEX TO CULTURE Routine 12/03/2023 11:27 AM PIPING DRAFTER Acute UTI (urinary tract infection) UA MACROSCOPIC WITH REFLEX TO MICRO AND CULTURE Routine 12/03/2023 11:27 AM PIPING DRAFTER Acute UTI (urinary tract infection) from Last 3 Months Results * Chlamydia trachomatis/Neisseria gonorrhoeae by PCR - Clinic Collect (02/12/2024 3:51 PM CDT) Chlamydia Trachomatis Negative Negative 02/13/2024 11:00 AM CDT [facility] Comment: Negative for C. trachomatis rRNA by template cutter mediated amplification. A negative result by template cutter mediated amplification does not preclude the presence of infection because results are dependent on proper and adequate collection, absence of inhibitors and sufficient rRNA to be detected. Neisseria gonorrhoeae Negative Negative 02/13/2024 11:00 AM CDT [facility] Comment:Negative for N. gono rrhoeae rRNA by template cutter mediated amplification. A negative result by template cutter mediated amplification does not preclude the presence of C. trachomatis infection because results are dependent on proper and adequate collection, absence of inhibitors and sufficient rRNA to be detected. Swab VAGINAL STRUCTURE / Unknown Non-blood Collection / Unknown 02/12/2024 3:51 PM CDT 02/12/2024 3:51 PM CDT David Britton MD LAB - MICRO GENE RAL ORDERABLES [facility] Inf. Diseases Diag. Lab [address] [facility], [address] [place] [address], [facility] * (ABNORMAL) Wet prep - lab collect (02/12/2024 3:51 PM CDT) Only the most recent of3 resultswithin the time period is included. Trichomonas Absent Absent NIRANJAN 02/12/2024 3:57 PM CDT LABORATORY Yeast Absent Absent NIRANJAN 02/12/2024 3:57 PM CDT LABORATORY Clue Cells Absent Absent NIRANJAN 02/12/2024 3:57 PM CDT LABORATORY WBCs/high power field 1+(A) None NIRANJAN 02/12/2024 3:57 PM CDT LABORATORY Swab VAGINAL STRUCTURE / Unknown Non-blood Collection / Unknown 02/12/2024 3:51 PM CDT 02/12/2024 3:51 PM CDT David Britton MD LAB - MICRO GENE RAL ORDERABLES LABORATORY [facility] [address] [facility] Lab (no room number, 1st floor of clinic) [place] [address], [facility] * (ABNORMAL) UA Macroscopic with reflex to [...] mg/dL 02/12/2024 3:57 PM CDT LABORATORY Specific [place] Urine 1.010 1.003 - 1.035 02/12/2024 3:57 PM CDT LABORATORY Blood Urine Negative Negative 02/12/2024 3:57 PM CDT LABORATORY pH Urine 6.5 5.0 - 7.0 02/12/2024 3:57 PM CDT LABORATORY Protein Albumin Urine Negative Negative mg/dL 02/12/2024 3:57 PM CDT LABORATORY Urobilinogen Urine 0.2 0.2, 1.0 E.U./dL 02/12/2024 3:57 PM CDT LABORATORY Nitrite Urine Positive(A) Negative 02/12/2024 3:57 PM CDT RM LABORATORY Leukocyte Esterase Urine Negative Negative 02/12/2024 3:57 PM CDT LABORATORY Urine MID-STREAM URINE SPECIMEN / Unknown Non-blood Collection / Unknown 02/12/2024 3:50 PM CDT 02/12/2024 3:51 PM CDT David Britton MD LAB - URINE ORDE TERRELL LABORATORY [facility] [address] [facility] (no room number, 1st floor of [facility]) [place] [address], [place] * (ABNORMAL) Urine Microscopic Exam (02/12/2024 3:50 PM CDT) Bacteria Urine Few(A) None Seen /HPF NIRANJAN 02/12/2024 3:58 PM CDT LABORATORY RBC Urine 0-2 0-2 /HPF /HPF NIRANJAN 02/12/2024 3:58 PM CDT RM LABORATORY WBC Urine 0-5 0-5 /HPF /HPF NIRANJAN 02/12/2024 3:58 PM CDT LABORATORY Squamous Epithelials Urine Few(A) None Seen /LPF NIRANJAN 02/12/2024 3:58 PM CDT RM LABORATORY Urine MID-STREAM URINE SPECIMEN / Unknown Non-blood Collection / Unknown 02/12/2024 3:50 PM CDT 02/12/2024 3:51 PM CDT David Britton MD LAB - URINE SHADY TEJADA LABORATORY [facility] [address] [facility] Lab (no room number, 1st floor of clinic) [place], [place] [address], [place] * Urine Culture (02/12/2024 3:50 PM CDT) Only the most recent of2 resultswithin the time period is included. Culture No Growth 02/13/2024 1:13 PM CDT [facility] Urine MID-STREAM URINE SPECIMEN / Unknown Non-blood Collection / Unknown 02/12/2024 3:50 PM CDT 02/12/2024 3:57 PM CDT David Britton MD LAB - MICRO GENE RAL ORDERABLES [facility] Inf. Diseases Diag. Lab [address] [facility], [address] [place] [address], [facility] * (ABNORMAL) UA Microscopic with Reflex to [...] CDT Urine Culture not indicated Jazmine Pruitt CNP LAB - URINE ORDER ALAYNA LV LABORATORY [facility] [address] [facility] Lab (no room number, 1st floor of clinic) [place] [address], [facility] [phone] from Last 3 Months Care Teams Production Painter Relationship Specialty Start Date End Date David Blancas DO [address] [place] [id number] PCP - General Family Medicine 09/25/22 Chetna Randhawa MD [address] [address] deep fat cook fry 11/08/21 David Blancas DO [address] [place] [id number] Assigned PCP 09/05/22
--- OUTSIDE RECORDS SUMMARY | 2024-02-15 01:19 | XMS_ITS | Encounter Summary ---
Author Name Unknown Organization [facility] Address [address] [place] [address]. [place] [address] Care Team Providers Care Senior National Account Manager Name Role Phone Chetna Randhawa MD Unavailable [phone] David Blancas DO Primary Care Provider [phone] David Blancas DO Unavailable [phone] Reason for Referral * Consultation (Routine) - Pending Review Specialty Diagnoses / Procedures Referred By Warner cespedes Referred To Contact Urology Diagnoses [place] [address] [place] [address] Referral ID Status Reason Start Date Expiration Date V isits Requested Visits Authorized [id number] Pending Review 02/12/2024 02/11/2025 1 1 Question Answer Referral Type: Uro/Electrician Second Reason for Referral: Recurrent UTIs Scheduling Instructions: [employer] will call you to coordinate care as prescribed your provider. If you don? t hear from a automobile rental representative within 2 business days, please call . Comments Please be aware that coverage of these services is subject to the terms and limitations of your health insurance plan. Call member services at your health plan with any benefit or coverage questions. [employer] will call you to coordinate care as prescribed your provider. If you don? t hear from a automobile rental representative within 2 business days, please call . Reason for Visit * Reason Comments UTI Encounter Details Date Type Department Care Team (Late st Contact Info) Description 02/12/2024 4:00 PM CDT Office Visit [facility] [address] [place] [phone] [place] [address] [place] [address] Dysuria (Primary Dx); Screening for STDs (sexually transmitted diseases); Recurrent UTI Social History Tobacco Use Types Packs/Day Years [...] Mass Index 18.72 02/12/2024 4:01 PM CDT documented in this encounter Progress Notes * David Britton MD - 02/12/2024 4:00 PM CDT Assessment and Plan (R30.0) Dysuria (primary encounter diagnosis) Comment: treated many times for UTI, non of the previous cultures confirms UTI. I suspect more la interstitial cytitis, has appt with manager of internal audit tomorrow, will also arrange to see uro manager of internal audit. Did have +tive nitrite, will switch to cipro as she's never used that. Plan: UA Macroscopic with reflex to Microscopic and Culture - Lab Collect, Wet prep - lab collect, Chlamydia trachomatis/Neisseria gonorrhoeae by PCR - Clinic Collect, Urine Microscopic Exam, Urine Culture (Z11.3) Screening for STDs (sexually transmitted diseases) Comment: Plan: HIV Antigen Antibody Combo (N39.0) Recurrent UTI Comment: Plan: Adult Urology Dry Transfer Worker Referral, Urogenital Ureaplasma and Mycoplasma Species by PCR, ciprofloxacin (CIPRO) 500 MG tablet RTC in 1m prn David Britton MD Yesenia Churchill is a 18 year old, presenting for the following health issues: UTI 02/12/2024 3:51 PM Additional Questions Roomed by Catina Rojas VF May want a urology referral. Pt states she has been having an excessive amount of brown discharge. Pt has been on keflex, macrobid, bactrum and none of them have been successful for this pt. Is going to OBGYN tomorrow for further testing. History of Present Illness Reason for visit: UTI that wont go away with antibiotics Symptom onset: 1-2 weeks ago Symptoms include: Burning sensation Symptom intensity: Moderate Symptom progression: Worsening Had these symptoms before: Yes Has tried/received treatment for these symptoms: Yes Previous treatment was successful: No She eats 4 or more servings of fruits and vegetables daily.She consumes 1 sweetened beverage(s) daily.She exercises with enough effort to increase her heart rate 30 to 60 minutes per day. She exercises with enough effort to increase her heart rate 4 days per week. She is taking medications regularly. Has been seen around a dozen times in the last year for UTI sx. Did do e-visit a few days ago and was started on Macrobid. Things are better but not resolved. Does have a sexual partner, but has not had intercourse for two weeks. Maybe dyspareunia. LMP ~1 months go - expects it again in 2 days (on OCP) Does have appt with OB tomorrow. Objective BP 110/63 (BP Location: Right arm, Patient Position: Sitting, Cuff Size: Adult Regular) Pulse 84 Temp 98.8 ??F (37.1 ??C) (Oral) Resp 18 Ht 1.676 m (5' 6) Wt 52.6 kg (116 lb) LMP 01/14/2024 (Approximate) SpO2 99% BMI 18.72 kg/m?? Body mass index is 18.72 kg/m??. Physical Exam Vitals and nursing note reviewed. Constitutional: Appearance: Normal appearance. Skin: General: Skin is warm and dry. Neurological: General: No focal deficit present. Mental Status: She is alert and oriented to person, place, and time. Psychiatric: Mood and Affect: Mood normal. Behavior: Behavior normal. Signed Electronically by: David Britton MD documented in this encounter Plan of Treatment Scheduled Referrals Name Type Priority Associated Diagnoses Orde r Schedule Adult Urology Dry Transfer Worker Referral Referral Routine Recurrent UTI Expected: 02/12/2024 (Approximate), Expires: 02/11/2025 documented as of this encounter Procedures Procedure Name Priority Date/Time Associated Diagnosis Comments CHLAMYDIA TRACHOMATIS/NEISSERI A GONORRHOEAE BY PCR Routine 02/12/2024 3:51 PM CDT Dysuria WET PREPARATION Routine 02/12/2024 3:51 PM CDT Dysuria UA MACROSCOPIC WITH REFLEX TO MICRO AND CULTURE Routine 02/12/2024 3:50 PM CDT Dysuria URINE MICROSCOPIC EXAM Routine 02/12/2024 3:50 PM CDT Dysuria URINE CULTURE Routine 02/12/2024 3:50 PM CDT Dysuria documented in this encounter Results * Chlamydia trachomatis/Neisseria gonorrhoeae by PCR - Clinic Collect (02/12/2024 3:51 PM CDT) Chlamydia Trachomatis Negative Negative 02/13/2024 11:00 AM CDT [facility] Comment: Negative for C. trachomatis rRNA by independent beauty consultant mediated amplification. A negative result by independent beauty consultant mediated amplification does not preclude the presence of infection because results are dependent on proper and adequate collection, absence of inhibitors and sufficient rRNA to be detected. Neisseria gonorrhoeae Negative Negative 02/13/2024 11:00 AM CDT [facility] Comment:Negative for N. gono rrhoeae rRNA by independent beauty consultant mediated amplification. A negative result by independent beauty consultant mediated amplification does not preclude the presence of C. trachomatis infection because results are dependent on proper and adequate collection, absence of inhibitors and sufficient rRNA to be detected. Swab VAGINAL STRUCTURE / Unknown Non-blood Collection / Unknown 02/12/2024 3:51 PM CDT 02/12/2024 3:51 PM CDT David Britton MD LAB - MICRO GENE RAL ORDERABLES [facility] Inf. Diseases Diag. Lab [address] [facility], [address] [place] [address], [facility] * (ABNORMAL) Wet prep - lab collect (02/12/2024 3:51 PM CDT) Trichomonas Absent Absent NIRANJAN 02/12/2024 3:57 PM [...] LAB - MICRO GENE RAL ORDERABLES LABORATORY [facility] [address] [facility] Lab (no room number, 1st floor of clinic) [place] [address] * Urine Culture (02/12/2024 3:50 PM CDT) Culture No Growth 02/13/2024 1:13 PM CDT [facility] Urine MID-STREAM URINE SPECIMEN / Unknown Non-blood Collection / Unknown 02/12/2024 3:50 PM CDT 02/12/2024 3:57 PM CDT David Britton MD LAB - MICRO GENE RAL ORDERABLES [facility] Inf. Diseases Diag. Lab [address] [facility], [address] [place] [address], [facility] * (ABNORMAL) Urine Microscopic Exam (02/12/2024 3:50 PM CDT) Bacteria Urine Few(A) None Seen /HPF NIRANJAN 02/12/2024 3:58 PM CDT LABORATORY RBC Urine 0-2 0-2 /HPF /HPF NIRANJAN 02/12/2024 3:58 PM CDT RM LABORATORY WBC Urine 0-5 0-5 /HPF /HPF NIRANJAN 02/12/2024 3:58 PM CDT LABORATORY Squamous Epithelials Urine Few(A) None Seen /LPF NIRANJAN 02/12/2024 3:58 PM CDT LABORATORY Urine MID-STREAM URINE SPECIMEN / Unknown Non-blood Collection / Unknown 02/12/2024 3:50 PM CDT 02/12/2024 3:51 PM CDT David Britton MD LAB - URINE ORDMaria E TEJADA LABORATORY [facility] Lab [address] [facility] Lab (no room number, 1st floor of clinic) [place] [address], [facility] * (ABNORMAL) UA Macroscopic with reflex to Microscopic and Culture - Lab Collect (02/12/2024 3:50 PM CDT) Color Urine Yellow Colorless, Straw, Light Yellow, Yellow 02/12/2024 3:57 PM CDT LABORATORY Appearance Urine Clear Clear 02/12/20 24 3:57 PM CDT LABORATORY Glucose Urine Negative Negative mg/dL 02/12/2024 3:57 PM CDT LABORATORY Bilirubin Urine Negative Negative 4 3:57 PM CDT LABORATORY Ketones Urine Negative Negative mg/dL 02/12/2024 3:57 PM CDT LABORATORY Specific [place] Urine 1.010 1.003 - 1.035 02/12/2024 3:57 [...] MD LAB - URINE SHADY TEJADA LABORATORY [facility] [address] [facility] Lab (no room number, 1st floor of clinic) [place] [address], [facility] documented in this encounter Visit Diagnoses Diagnosis Dysuria- Primary Screening for STDs (sexually transmitted diseases) Screening examination for venereal disease Recurrent UTI Urinary tract infection, site not specified documented in this encounter Care Teams Senior National Account Manager Relationship Specialty Start Date End Date David Blancas DO [address] [place] [id number] PCP - General Family Medicine 09/25/22 Chetna Randhawa MD [address] [address] oleomargarine maker 11/08/21 David Blancas DO [address] [place] [id number] Assigned PCP 09/05/22 documented as of this encounter
--- OUTSIDE RECORDS SUMMARY | 2024-02-15 01:20 | XMS_ITS | Encounter Summary ---
Author Name Unknown Organization [facility] Address [address] [place] [address] Care Team Providers Care Bender Machine Operator Name Role Phone Chetna Randhawa MD Unavailable [phone] David Blancas DO Primary Care Provider [phone] David Blancas DO Unavailable [phone] Encounter Details Date Type Department Care Team (Late st Contact Info) Description 05/08/2023 MyC Medical Advice [address] [place] [address] Stacie Kendall Social History Tobacco Use Types Packs/Day Years Used Date Smoking Tobacco: Never Smokeless Tobacco: Never Alcohol Use Standard Drinks/Week Comments Not Asked 0 (1 standard drink = 0.6 oz pur e alcohol) PHQ-2 Answer Date Recorded PHQ-2 Score 0 05/08/2023 Sex and Gender Information Value Date Recorded Sex Assigned at Not on file Gender Identity Not on file Sexual Orientation Not on file COVID-19 Exposure Response Date Recorded In the last 10 days, have yo u been in contact with someone who was confirmed or suspected to have Coronavirus/COVID-19? No / Unsure 05/09/2023 7:08 AM CDT documented as of this encounter Plan of Treatment Not on file documented as of this encounter Visit Diagnoses Not on filedocumented in this encounter Care Teams Bender Machine Operator Relationship Specialty Start Date End Date David Blancas DO [address] [place] [address] PCP - General Family Medicine 09/25/22 Chetna Randhawa MD [address] [place] [address] freight representative 11/08/21 David Blancas DO [address] [place] [address] Assigned PCP 09/05/22 documented as of this encounter
[2024-02-15 01:22] LABS: Appearance Urine Clear (Clear); Bilirubin Urine 2+ (Negative); Blood Urine Negative (Negative); Color Urine Amber (Yellow); Glucose Urine 1+ (Negative); Ketones Urine 1+ (Negative); Leukocyte Esterase Urine 3+ (Negative); Nitrite Urine Positive (Negative); Protein Urine 2+ (Negative); Specific Gravity Urine 1.025 (1.000-1.030); Urobilinogen Urine >=8.0 (0.2-1.0); pH Urine 6.5 (5.0-8.5)
[2024-02-15] MEDS: IBUPROFEN 200 MG TABLET 600 MG PO (01:22)
[2024-02-15 01:37] LABS: Amorphous Sediment Urine Moderate; Bacteria Urine Moderate; Squamous Epithelial Cell Urine Moderate (None-Few); WBC Urine 25-50 (0-5)
[2024-02-15 01:38] LABS: Fine Granular Casts Urine Few
[2024-02-15] MEDS: 0.9 % SODIUM CHLORIDE 1000 ml 1,000 ML IV (02:43)
[2024-02-15 02:49] LABS: Basophils Absolute Auto 0.03 K/uL (0.00-0.30); Basophils Percent Auto 0.5 % (0.0-3.0); Eosinophils Absolute Auto 0.05 K/uL (0.00-0.50); Eosinophils Percent Auto 0.9 % (0.0-7.0); Hematocrit 37.7 % (33.0-51.0); Hemoglobin* 12.5 gm/dL (12.0-16.0); Immature Granulocytes Abs Auto 0.01 K/uL (0.00-0.30); Immature Granulocytes Pct Auto 0.2 %; Lymphocytes Absolute Auto 2.36 K/uL (0.90-2.90); Lymphocytes Percent Auto 42.8 % (20-44); Mean Corpuscular HGB Conc 33 gm/dL (32-36); Mean Corpuscular Hemoglobin 29 pg (26-34); Mean Corpuscular Volume 89 fL (80-100); Monocytes Percent Auto 9.3 % (0.0-11.0); Neutrophils Absolute Auto 2.55 K/uL (1.7-7.0); Neutrophils Percent Auto 46.3 % (42.0-72.0); Platelet Count* 245 K/uL (140-440); RDW Coefficient of Variation % 12.3 % (11.5-15.5); Red Blood Count 4.25 m/uL (4.00-5.20); Slide Review Reflex No; White Blood Count* 5.51 K/uL (4.50-11.00)
[2024-02-15 03:03] LABS: Chloride* 108 mmol/L (96-114); Potassium* 4.3 mmol/L (3.6-5.1); Sodium* 136 mmol/L (135-149)
[2024-02-15] MEDS: HYOSCYAMINE SULFATE 0.125 MG TAB 0.25 MG SUBLINGUAL (03:04)
[2024-02-15 03:06] LABS: Creatinine* 0.8 mg/dL (0.6-1.2); Est. Creatinine Clearance* 95.57; Estimated Glomerular Filt Rate 109 ml/min
[2024-02-15 03:07] LABS: Anion Gap 5 mEq/L (7-15); Blood Urea Nitrogen* 16 mg/dL (5-24); Calcium* 9.6 mg/dL (8.7-10.8); Carbon Dioxide* 23 mmol/L (20-32); Glucose* 95 mg/dL (60-115)
[2024-02-15 03:10] LABS: C Reactive Protein* < 0.5 mg/dL (0.5-1.0)
[2024-02-15 03:15] VITALS: BP 92/63; PULSE 94; RESP 16; TEMP 37; O2SAT 96
== END 2024-02-15 03:57 | disposition home or self-care (01) ==
PROVIDERS: Emergency Provider Family Medicine
DX: N30.90 Cystitis, unspecified without hematuria (principal)
CPT/HCPCS: 36415; 80048; 81001; 85025; 86140; 87086; 99283; 99284; A9270; J7030

== ENCOUNTER 2024-08-05 01:48 | Emergency (ER) | payer OTHER, SELFPAY ==
[2024-08-05 01:56] VITALS: BP 115/86; PULSE 76; RESP 16; TEMP 36.4; O2SAT 96
--- NOTE | 2024-08-05 02:03 | ED_ITS ---
HPI - Female Genitourinary General Time Seen by Provider: 02:03 Date Seen: 08/05/24 Chief complaint: Urogenital Problems, Female Stated complaint: UTI Time Seen by Provider: 08/05/24 02:02 Source: patient, RN notes reviewed and old records reviewed Mode of arrival: ambulatory Limitations: no limitations History of Present Illness HPI Narrative: 19-year-old female who comes in today with pain with urination. Denies fevers, flank pain. No vaginal bleeding or discharge she denies possibility of , last menstrual period yesterday. She notes that symptoms have been going on for about 3 weeks, reports she was treated with Bactrim for urinary tract infection prior to that. Related Data Home Medications ?Medication ?Instructions ?Recorded ?Confirmed drospirenone 3 mg-ethinyl 1 tab PO QDAY 09/23/22 08/05/24 estradiol 0.02 mg tablet (BOUBACAR (28)) ciprofloxacin HCl 500 mg tablet 500 mg PO BID 02/15/24 02/15/24 fluoxetine 20 mg capsule 20 mg PO DAILY 08/05/24 08/05/24 Previous Rx's ?Medication ?Instructions ?Recorded phenazopyridine 200 mg tablet 200 mg PO TID PRN pain 6 doses #6 09/23/22 (Pyridium) tabs ciprofloxacin HCl 500 mg tablet 500 mg PO BID #6 tabs 02/15/24 hyoscyamine sulfate 0.125 mg tablet 0.125 - 0.25 mg (1 - 2 x 0.125 mg) 02/15/24 PO Q4-6H PRN cramping/pain #30 tabs phenazopyridine 200 mg tablet 100 - 200 mg (0.5 - 1 x 200 mg) PO 02/15/24 TID PRN pain #10 tabs Allergies Allergy/AdvReac Type Severity Reaction Status Date / Time lansoprazole [From Prevacid] Allergy Mild Hives Verified 10/30/23 17:44 Penicillins Allergy Mild Hives Verified 10/30/23 17:44 [facility], [facility] Social History Smoking Status: Current every day smoker Do you use any of these nicotine containing products: E-Cigarettes and Vaping Products Second hand tobacco smoke exposure: No How often do you have a drink containing alcohol: never AUDIT-C Alcohol total score: 0 Non-prescribed substance use: denies use Exam Narrative: Exam Narrative: General: Well-developed and well-nourished, no acute distress Head: Atraumatic and normocephalic Eyes: Pupils are equal reactive, extraocular motions intact, conjunctiva clear ENT: External nose and ears are normal, posterior pharynx without erythema or exudate Neck: No midline cervical tenderness, full spontaneous range of motion the neck, trachea midline, no adenopathy Heart: Regular rate and rhythm no murmurs or thrills Lungs: Clear to auscultation bilaterally without wheezes or crackles Abdomen: Soft, nontender, nondistended with active bowel sounds Musculoskeletal: No tenderness, deformity, or edema Neurologic: Awake, alert, and oriented x3, no gross focal neurologic deficits, cranial nerves intact as tested Psych: Mood and affect are appropriate Skin: No rashes Const: Vital Signs, click to edit/add: Vital Signs - 24 hr 08/05/24 01:56 Temperature 97.6 F Pulse Rate [Pulse Oximeter] 76 Respiratory Rate 16 Blood Pressure [Ri ght Upper Arm] 115/86 Pulse Oximetry 96 Oxygen Delivery Me thod Room Air Course Course ED Course: Patient seen and examined, presents today with urinary frequency and dysuria which is been going on for about 3 weeks, as well as ?bladder spasms. ? Denies vaginal bleeding, vaginal discharge, vaginal pain. Last period ended yesterday. Took Pyridium for this with minimal improvement. On exam here, appears comfortable, vital is stable. No abdominal tenderness, no CVA tenderness. Urinalysis ordered. Reevaluation(s) Time of Reevaluation #1: 02:21 Reevaluation #1: Urinalysis independently interpreted by me with positive nitrites, positive leukocyte esterase, 5-10 white cells. Patient will be started on Keflex and discharged. Vital Signs Vital signs: Initial Vital Signs Temperature 97.6 F 08/05/24 01:56 Temperature Source Temporal Artery Scan 08/05/24 01:56 Pulse Rate 76 08/05/24 01:56 Respiratory Rate 16 08/05/24 01:56 Blood Pressure 115/86 08/05/24 01:56 Blood Pressure Mean 95 08/05/24 01:56 Blood Pressure Position Sitting 08/05/24 01:56 Pulse Oximetry 96 08/05/24 01:56 Oxygen Delivery Method Room Air 08/05/24 01:56 Vital Signs Temperature 97.6 F 08/05/24 01:56 Pulse Rate 76 08/05/24 01:56 Respiratory Rate 16 08/05/24 01:56 Blood Pressure 115/86 08/05/24 01:56 Pulse Oximetry 96 08/05/24 01:56 Oxygen Delivery Method Room Air 08/05/24 01:56 Temperature 97.6 F 08/05/24 01:56 Pulse Rate 76 08/05/24 01:56 Respiratory Rate 16 08/05/24 01:56 Blood Pressure 115/86 08/05/24 01:56 Pulse Oximetry 96 08/05/24 01:56 Oxygen Delivery Method Room Air 08/05/24 01:56 MDM - Female Genitourinary Lab Data Labs: Lab Results 08/05/24 Range/Units 01:50 Urine Color [place] A (Yellow) Urine Appearance Clear (Clear) Urine pH 5.5 (5.0-8.5) Ur Specific [place] 1.020 (1.000-1.030) Urine Protein 2+ A (Negative) Urine Glucose (UA) Trace A (Negative) Urine Ketones 2+ A (Negative) Urine Blood Negative (Negative) Urine Nitrite Positive A (Negative) Urine Bilirubin 2+ A (Negative) Urine Urobilinogen 4.0 A (0.2-1.0) Ur Leukocyte Esterase 3+ A (Negative) Urine RBC 0-2 (0-2) Urine WBC 5-10 A (0-5) Ur Squamous Epith Cells Few (None-Few) Amorphous Sediment Few A (None) Urine Bacteria Many A (None) Discharge Plan Discharge Clinical Impression: Urinary tract infection Patient Disposition: Home, Self-Care Condition: Stable Instructions: Urinary Tract Infection in Women (DC) Additional Instructions: Take antibiotics as prescribed Make sure you are drinking plenty of fluid Follow-up with your primary care physician in 2 weeks. Consider urology referral due to frequent urinary tract infections. Activity Level: Activity as Tolerated Discharge Diet: Regular Prescriptions: No Action drospirenone-ethinyl estradiol [BOUBACAR (28)] 3-0.02 mg tablet 1 tab PO QDAY phenazopyridine [Pyridium] 200 mg tablet 200 mg PO TID PRN (Reason: pain) Qty: 6 0RF ciprofloxacin HCl 500 mg tablet 500 mg PO BID ciprofloxacin HCl 500 mg tablet 500 mg PO BID Qty: 6 0RF hyoscyamine sulfate 0.125 mg tablet 0.125 - 0.25 mg PO Q4-6H PRN (Reason: cramping/pain) Qty: 30 0RF phenazopyridine 200 mg tablet 100 - 200 mg PO TID PRN (Reason: pain) Qty: 10 0RF fluoxetine 20 mg capsule 20 mg PO DAILY Follow Up/Referrals: Provider,Not a Local [Primary Care Provider] - Stand Alone Forms: Knowledgestreem Info Instructions
[2024-08-05 02:11] LABS: Appearance Urine Clear (Clear); Bilirubin Urine 2+ (Negative); Blood Urine Negative (Negative); Color Urine Orange (Yellow); Glucose Urine Trace (Negative); Ketones Urine 2+ (Negative); Leukocyte Esterase Urine 3+ (Negative); Nitrite Urine Positive (Negative); Protein Urine 2+ (Negative); pH Urine 5.5 (5.0-8.5)
--- OUTSIDE RECORDS SUMMARY | 2024-08-05 02:15 | XMS_ITS | Clinical Summary ---
Author Organization [facility] Address [address] [place] [id number] Care Team Providers Care Shredder/Granulator Operator Name Role Phone Chetna Randhawa MD Unavailable [phone] David Blancas DO Primary Care Provider Avril Browne PA-C Unavailable [phone] Avril Browne PA-C Unavailable Bridger Chau DPM Unavailable [phone] David Blancas DO Unavailable Allergies Active Allergy Reactions Criticality Noted Date Comments Amoxicillin Rash Low 06/27/2020 Taken at the same time as Prevacid; occurred in 4th grade Lansoprazole Rash Low 01/04/2020 Medications Medication Sig Dispensed Refills Start Date End Date Status drospirenone-ethiny l estradiol (BOUBACAR) 3-0.02 MG tablet Take 1 tablet by mouth daily Active cephALEXin (KEFLEX) 500 MG capsuleIndications: Paronychia, toe, left,Paronychia, toe, right Take 1 capsule (500 mg) by mouth 2 times daily 28 capsule 03/02/2024 Active hydrOXYzine HCl (ATARAX) 10 MG tabletIndications:M ixed obsessional thoughts and acts,Anxiety Take 1-2 tablets (10-20 mg) by mouth at bedtime 60 tablet 1 03/02/2024 Active FLUoxetine (PROZAC) 20 MG capsuleIndications: Anxiety,Mixed obsessional thoughts and acts Take 1 capsule (20 mg) by mouth daily 90 capsule 06/07/2024 Active sulfamethoxazole-tr imethoprim (BACTRIM DS) 800-160 MG tabletIndications:A cute UTI (urinary tract infection) Take 1 tablet by mouth 2 times daily for 3 days. 6 tablet 07/25/2024 07/28/2024 Active Problems Problem Noted Date Diagnosed Date Mixed obsessional thoughts and acts 03/02/2024 Recurrent UTI 02/12/2024 Screening for STDs (sexually [...] Problem Noted Date Diagnosed Date Resolved Date Pelvic floor dysfunction 06/04/2024 Dehydration 06/27/2020 10/03/2022 Encounters Date Type Department Care Team Description 07/26/2024 3:00 PM CDT Lab [facility] [address] [place] [phone] Dysuria 07/26/2024 Travel 07/25/2024 3:25 PM CDT E-Visit [facility] [address] [phone] Bonifacio Martin MD UTI (Entered automatically based on patien... 07/25/2024 Orders Only [facility] [address] [place] [address] Violet Castaneda PA-C Dysuria (Primary Dx) 07/25/2024 Orders Only [facility] [address] [phone] Bonifacio Martin MD Dysuria (Primary Dx) 06/30/2024 Travel 06/27/2024 1:25 PM CDT E-Visit [facility] [address] [phone] Toby Stephens PA-C UTI (Entered automatically based on patien... 06/25/2024 3:30 PM CDT Lab [facility] [address] [place] [address] Dysuria 06/25/2024 Orders Only [facility] [address] [phone] Lisa Vaughn MD Dysuria (Primary Dx) 06/25/2024 Travel 06/24/2024 4:55 PM CDT E-Visit [facility] [address] [phone] Mary Mitchell PA-C UTI (Entered automatically based on patien... 06/08/2024 8:00 PM CDT E-Visit [address] [phone] David Blancas, Headache (Entered automatically based on p... 06/07/2024 3:30 PM CDT Virtual Visit [facility] [address] [place] [address] [place] [phone] David Blancas, Anxiety (Primary Dx); Mixed obsessional thoughts and acts 06/04/2024 2:50 PM CDT Therapy Visit [facility] [address] [place] [phone] Avril Browne PA-C Dickinson, Kelly, PT Pelvic floor dysfunction 06/04/2024 Travel 06/03/2024 Travel 06/02/2024 MyC Refill [address] [phone] Alyssa Willis, CEREAL [employer] Refill Request 05/27/2024 Travel 05/26/2024 1:45 PM CDT E-Visit [facility] [address] [phone] Donald You, SANJU UTI (Entered automatically based on patien... [...] PHQ-2 Answer Date Recorded PHQ-2 Score 0 06/07/2024 Adolescent Education Answer Date Record ed Getting [...] Answer Date Recorded Do you have housing? (Noahin g is defined as stable permanent housing and does not include staying ouside in a car, in a tent, in an abandoned building, in an overnight mcfp, or couch-surfing.) Yes 09/21/2023 Are you worried about losing [...] Sign Reading Time Taken Comments Blood Pressure 105/70 03/02/2024 11:20 AM CDT Pulse 88 03/02/2024 11:20 AM CDT Temperature 36.6 ??C (97.8 ??F) 03/02/2024 11:20 AM C DT Respiratory Rate 18 02/12/2024 4:01 PM CDT Oxygen Saturation 97% 03/02/2024 11:20 AM CDT Inhaled Oxygen Concentration - - Weight 52.6 kg (116 lb) 03/02/2024 11:20 AM CDT Height 167.6 cm (5' 6) 03/02/2024 11:20 AM CDT Body Mass Index 18.72 03/02/2024 11:20 AM CDT Plan of Treatment Upcoming Encounters Date Type Department Care Team (Late st Contact Info) Description 08/05/2024 2:15 PM CDT Lab [facility] [address] [place] [phone] Health Maintenance Due Date Last Done Comments ADVANCE CARE PLANNING 2004 YEARLY PREVENTIVE VISIT 2004 HIV SCREENING 2019 HPV IMMUNIZATION (1 - 3-dose series) 2019 HEPATITIS C SCREENING 2022 COVID-19 Vaccine ( season) 2024 INFLUENZA VACCINE (#1) 2024 8, 09/12/2015, 08/25/2014, Additional history exists CHLAMYDIA SCREENING 02/11/2025 02/12/2024, ANNUAL REVIEW OF HM ORDERS 06/07/2025 06/07/2024, DTAP/TDAP/TD IMMUNIZATION (7 - Td or Tdap) 10/18/2025 10/18/2015, 03/16/2009, 12/03/2005, Additional history exists RSV VACCINE (1 - 1-dose 75+ series) 2079 HEPATITIS B IMMUNIZATION Completed 005, 2004, 2004 Pneumococcal Vaccine: Pediatrics (0 to 5 Years) and At-Risk Patients (6 to 64 Years) Aged Out 08/27/2005, 2004, 2004, Additional history exists No longer eligible based on patient's age to complete this topic MENINGITIS IMMUNIZATION Completed 06/16/2020, 04/02 PHQ-2 (once per calendar year) Completed 06/07/2024, 06/07/2024, 03/10/2024, Additional history exists RSV MONOCLONAL ANTIBODY Aged Out No l onger eligible based on patient's age to complete this topic Procedures Procedure Name Priority Date/Time Associated Diagnosis Comments UA MICROSCOPIC WITH REFLEX TO CULTURE Routine 07/26/2024 2:18 PM CDT Dysuria UA MACROSCOPIC WITH REFLEX TO MICRO AND CULTURE Routine 07/26/2024 2:18 PM CDT Dysuria URINE CULTURE Routine 06/25/2024 3:23 PM CDT Dysuria WET PREPARATION Routine 06/25/2024 3:23 PM CDT Dysuria URINE MICROSCOPIC EXAM Routine 06/25/2024 3:23 PM CDT Dysuria UA MACROSCOPIC WITH REFLEX TO MICRO AND CULTURE Routine 06/25/2024 3:23 PM CDT Dysuria CHLAMYDIA TRACHOMATIS/NEISSERI A GONORRHOEAE BY PCR Routine 02/12/2024 3:51 PM CDT Dysuria from Last 3 Months or Most Recently Relevant to Health Maintenance Results * (ABNORMAL) UA Microscopic with Reflex to Culture (07/26/2024 2:18 PM CDT) Bacteria Urine Few(A) None Seen /HPF NIRANJAN 07/26/2024 2:34 PM CDT RM LABORATORY RBC Urine 0-2 0-2 /HPF /HPF NIRANJAN 07/26/2024 2:34 PM CDT RM LABORATORY WBC Urine 0-5 0-5 /HPF /HPF NIRANJAN 07/26/2024 2:34 PM CDT RM LABORATORY Squamous Epithelials Urine Moderate( A) None Seen /LPF NIRANJAN 07/26/2024 2:34 PM CDT RM LABORATORY Mucus Urine Present(A ) None Seen /LPF NIRANJAN 07/26/2024 2:34 PM CDT RM LABORATORY Urine URINE SPECIMEN OBTAINED BY CLEAN CATCH PROCEDURE / Unknown Non-blood Collection / Unknown 07/26/2024 2:18 PM CDT 07/26/2024 2:18 PM CDT Narrative LABORATORY - 07/26/2024 2:34 PM CDT Urine Culture not indicated Violet Castaneda PA-C LAB - URINE ORDERABL ES LABORATORY [facility] [address] [facility] (no room number, 1st floor of clinic) [place] [address], [facility] * (ABNORMAL) UA Macroscopic with reflex to Microscopic and Culture - Clinic Collect (07/26/2024 2:18 PM CDT) Only the most recent of2 resultswithin the time period is included. Color Urine Yellow Colorless, Straw, Light Yellow, Yellow 07/26/2024 2:27 PM CDT LABORATORY Appearance Urine Clear Clear 07/26/20 24 2:27 PM CDT LABORATORY Glucose Urine Negative Negative mg/dL 07/26/2024 2:27 PM CDT LABORATORY Bilirubin Urine Negative Negative 2:27 PM CDT LABORATORY Ketones Urine Negative Negative mg/dL 07/26/2024 2:27 PM CDT LABORATORY Specific [place] Urine 1.020 1.003 - 1.035 07/26/2024 2:27 PM CDT LABORATORY Blood Urine Small(A) Negative 07/26/2024 2:27 PM CDT LABORATORY pH Urine 7.5(H) 5.0 - 7.0 07/26/2024 2:27 PM CDT LABORATORY Protein Albumin Urine Negative Negative mg/dL 07/26/2024 2:27 PM CDT LABORATORY Urobilinogen Urine 0.2 0.2, 1.0 E.U./dL 07/26/2024 2:27 PM CDT LABORATORY Nitrite Urine Negative Negative 07/26/2024 2:27 PM CDT LABORATORY Leukocyte Esterase Urine Negative Negative 07/26/2024 2:27 PM CDT LABORATORY Urine URINE SPECIMEN OBTAINED BY CLEAN CATCH PROCEDURE / Unknown Non-blood Collection / Unknown 07/26/2024 2:18 PM CDT 07/26/2024 2:18 PM CDT Violet Castaneda PA-C LAB - URINE ORDERABL ES Performing Organization Address City/[facility]/ZIP Co de Phone Number LABORATORY [facility] [address] [facility] (no room number, 1st floor of [facility]) [facility] [address], [facility] * Wet preparation (06/25/2024 3:23 PM CDT) Trichomonas Absent Absent NIRANJAN 06/25/2024 3:27 PM CDT LABORATORY Yeast Absent Absent NIRANJAN 06/25/2024 3:27 PM CDT LABORATORY Clue Cells Absent Absent NIRANJAN 06/25/2024 3:27 PM CDT LABORATORY WBCs/high power field None None NIRANJAN 06/25/2024 3:27 PM CDT LABORATORY Swab VAGINAL STRUCTURE / Unknown Non-blood Collection / Unknown 06/25/2024 3:23 PM CDT 06/25/2024 3:23 PM CDT Mary Mitchell PA-C LAB - MICRO GENER AL ORDERABLES Performing Organization Address City/[facility]/ZIP Co de Phone Number LABORATORY [facility] [address] [facility] (no room number, 1st floor of [facility]) [place] [address], [facility] * (ABNORMAL) Urine Microscopic Exam (06/25/2024 3:23 PM CDT) Bacteria Urine Many(A) None Seen /HPF NIRANJAN 06/25/2024 3:29 PM CDT LABORATORY RBC Urine 0-2 0-2 /HPF /HPF NIRANJAN 06/25/2024 3:29 PM CDT RM LABORATORY WBC Urine 0-5 0-5 /HPF /HPF NIRANJAN 06/25/2024 3:29 PM CDT LABORATORY Squamous Epithelials Urine Many(A) None Seen /LPF NIRANJAN 06/25/2024 3:29 PM CDT LABORATORY Urine URINE SPECIMEN OBTAINED BY CLEAN CATCH PROCEDURE / Unknown Non-blood Collection / Unknown 06/25/2024 3:23 PM CDT 06/25/2024 3:23 PM CDT Mary Mitchell PA-C LAB - URINE ORDER ALAYNA LABORATORY [facility] [address] [facility] (no room number, 1st floor of clinic) [place] [address] * Urine Culture (06/25/2024 3:23 PM CDT) Culture <10,000 CFU/mL Mixture of Urogenital Cristy 06/27/2024 5:50 AM CDT [facility] LAB[facility]ATORY Urine URINE SPECIMEN OBTAINED BY CLEAN CATCH PROCEDURE / Unknown Non-blood Collection / Unknown 06/25/2024 3:23 PM CDT 06/25/2024 3:27 PM CDT Mary Mitchell PA-C LAB - MICRO GENER AL ORDERABLES [facility] LABORATORY [facility] Inf. Diseases Diag. Lab [address] [facility] [place] [address] * Chlamydia trachomatis/Neisseria gonorrhoeae by PCR - Clinic Collect (02/12/2024 3:51 PM CDT) Chlamydia Trachomatis Negative Negative 02/13/2024 11:00 AM CDT [facility] LABORATORY Comment: Negative for C. trachomatis rRNA by shot blaster mediated amplification. A negative result by shot blaster mediated amplification does not preclude the presence of infection because results are dependent on proper and adequate collection, absence of inhibitors and sufficient rRNA to be detected. Neisseria gonorrhoeae Negative Negative 02/13/2024 11:00 AM CDT [facility] Comment:Negative for N. gono rrhoeae rRNA by shot blaster mediated amplification. A negative result by shot blaster mediated amplification does not preclude the presence of C. trachomatis infection because results are dependent on proper and adequate collection, absence of inhibitors and sufficient rRNA to be detected. Swab VAGINAL STRUCTURE / Unknown Non-blood Collection / Unknown 02/12/2024 3:51 PM CDT 02/12/2024 3:51 PM CDT David Britton MD LAB - MICRO GENE RAL ORDERABLES [facility]AT[facility] Inf. Diseases Diag. Lab [address] [facility], [address] [place] [address], [facility] from Last 3 Months or Most Recently Relevant to Health Maintenance Care Teams Shredder/Granulator Operator Relationship Specialty Start Date End Date David Blancas DO [address] [place] [id number] PCP - General Family Medicine 09/25/22 Chetna Randhawa MD [address] [facility] [address] [place] [address] brim setter 11/08/21 Avril Browne PA-C [address] [place] [address] Physician Analog Device Designer Urology 02/16/24 Avril Browne PA-C [address] [place] [address] Assigned Surgical Provider 03/18/24 Bridger Chau DPM [address] [phone] Assigned Musculoskeletal Provider 03/18/24 [place] [address] [place] [address] Assigned PCP 06/18/24
--- OUTSIDE RECORDS SUMMARY | 2024-08-05 02:15 | XMS_ITS | Referral Summary ---
Author Organization [place] Address [address] [place] [address]. [place] [address] Care Team Providers Care Telegraphic Service Dispatcher Name Role Phone Chetna Randhawa MD Unavailable [phone] David Blancas DO Primary Care Provider [phone] Avril Browne PA-C Unavailable [phone] Avril Browne PA-C Unavailable [phone] Bridger Chau DPM Unavailable [phone] David Blancas DO Unavailable [phone] Encounters Date Type Department Care Team Description 07/26/2024 Travel 07/26/2024 3:00 PM CDT Lab [facility] [address] [place] [address] Dysuria 07/25/2024 Orders Only [address] [phone] Violet Castaneda PA-C Dysuria (Primary Dx) 07/25/2024 Orders Only [facility] [address] [place] [phone] Bonifacio Martin MD Dysuria (Primary Dx) 07/25/2024 3:25 PM CDT E-Visit [facility] [address] [address] Bonifacio Martin MD UTI (Entered automatically based on patien... 06/30/2024 Travel 06/27/2024 1:25 PM CDT E-Visit [facility] [address] [address] Toby Stephens, SANJU UTI (Entered automatically based on patien... 06/25/2024 Orders Only [facility] [address] [address] Lisa Vaughn MD Dysuria (Primary Dx) 06/25/2024 Travel 06/25/2024 3:30 PM CDT Lab [facility] [address] [place] [address] Dysuria 06/24/2024 4:55 PM CDT E-Visit [facility] [address] [address] Mary Mitchell PA-C UTI (Entered automatically based on patien... 06/08/2024 8:00 PM CDT E-Visit [address] [phone] David Blancas, DO Headache (Entered automatically based on p... 06/07/2024 3:30 PM CDT Virtual Visit [address] [phone] David Blancas, Anxiety (Primary Dx); Mixed obsessional thoughts and acts 06/04/2024 Travel 06/04/2024 2:50 PM CDT Therapy Visit [facility] [address] [place] [phone] Avril Browne PA-C Dickinson, Kelly, PT Pelvic floor dysfunction 06/03/2024 Travel 06/02/2024 MyC Refill [address] [address] Alyssa Willis APRN PATTERN GRADER SUPERVISOR Refill Request 05/27/2024 Travel 05/26/2024 1:45 PM CDT E-Visit [facility] [address] [address] Donald You, SANJU UTI (Entered automatically based [...] Pelvic floor dysfunction 06/04/2024 Dehydration 06/27/2020 10/03/2022 Immunizations Name Administration Dates [...] in an abandoned building, in an overnight senior living, or couch-surfing.) Yes 09/21/2023 Are you worried [...] Contact Info) Description 08/05/2024 2:15 PM CDT [facility] Laboratory [address] [place] [address] Procedures Procedure Name Priority Date/Time Associated Diagnosis [...] PM CDT 07/26/2024 2:18 PM CDT Narrative RM LABORATORY - 07/26/2024 2:34 PM CDT Urine Culture not indicated Violet Castaneda PA-C LAB - URINE ORDERABL ES LABORATORY [facility] [place] [facility] [address] [facility] Lab (no room number, 1st floor of clinic) [place] [address], [facility] * (ABNORMAL) UA Macroscopic with [...] CDT LABORATORY Bilirubin Urine Negative Negative 4 2:27 PM CDT LABORATORY Ketones Urine Negative Negative mg/dL 07/26/2024 2:27 PM CDT LABORATORY Specific [place] Urine 1.020 1.003 - 1.035 07/26/2024 2:27 [...] - URINE ORDERABL ES Performing Organization Address City/[facility]/ZIP Co de Phone Number LABORATORY [facility] Lab [address] [facility] Lab (no room number, 1st floor of clinic) [place] [address], [place] * Wet preparation (06/25/2024 3:23 PM CDT) [...] PA-C LAB - MICRO GENER AL ORDERABLES LABORATORY [facility] [address] [facility], 1st floor of clinic) [place] [address], [place] * (ABNORMAL) Urine Microscopic Exam (06/25/2024 3:23 PM CDT) Bacteria Urine Many(A) None Seen /HPF NIRANJAN 06/25/2024 3:29 PM CDT RM LABORATORY RBC Urine 0-2 0-2 /HPF /HPF NIRANJAN 06/25/2024 3:29 PM CDT RM LABORATORY WBC Urine 0-5 0-5 /HPF /HPF NIRANJAN 06/25/2024 3:29 PM CDT RM LABORATORY Squamous Epithelials Urine Many(A) None Seen /LPF NIRANJAN 06/25/2024 3:29 PM CDT RM LABORATORY Urine URINE SPECIMEN OBTAINED BY CLEAN CATCH PROCEDURE / Unknown Non-blood Collection / Unknown 06/25/2024 3:23 PM CDT 06/25/2024 3:23 PM CDT Mary Mitchell PA-C LAB - URINE ORDER ALAYNA LABORATORY [facility] [place] Lab [address] [facility] (no room number, 1st floor of clinic) [place] [address] * Urine Culture (06/25/2024 3:23 PM CDT) Culture <10,000 CFU/mL Mixture of Urogenital Cristy 06/27/2024 5:50 AM CDT [facility] LABORATORY Urine URINE SPECIMEN OBTAINED BY CLEAN CATCH PROCEDURE / Unknown Non-blood Collection / Unknown 06/25/2024 3:23 PM CDT 06/25/2024 3:27 PM CDT Mary Mitchell PA-C LAB - MICRO GENER AL ORDERABLES [facility] LABORATORY [facility] Inf. Diseases Diag. Lab [address] [facility] [place] [address], [facility] * Chlamydia trachomatis/Neisseria gonorrhoeae by PCR - Clinic Collect (02/12/2024 3:51 PM CDT) Chlamydia Trachomatis Negative Negative 02/13/2024 11:00 AM CDT [facility] LABORATORY Comment: Negative for C. trachomatis rRNA by media theorist and author of mediated amplification. A negative result by media theorist and author of mediated amplification does not preclude the presence of infection because results are dependent on proper and adequate collection, absence of inhibitors and sufficient rRNA to be detected. Neisseria gonorrhoeae Negative Negative 02/13/2024 11:00 AM CDT [facility] LAB[facility]AT[facility] Comment:Negative for N. gono rrhoeae rRNA by media theorist and author of mediated amplification. A negative result by media theorist and author of mediated amplification does not preclude the presence of C. trachomatis infection because results are dependent on proper and adequate collection, absence of inhibitors and sufficient rRNA to be detected. Swab VAGINAL STRUCTURE / Unknown Non-blood Collection / Unknown 02/12/2024 3:51 PM CDT 02/12/2024 3:51 PM CDT David Britton MD LAB - MICRO GENE RAL ORDERABLES [facility] LABORATORY [facility] Inf. Diseases Diag. Lab [address] [facility] [place] [address], [facility] from Last 3 Months or Most Recently Relevant to Health Maintenance Care Teams Telegraphic Service Dispatcher Relationship Specialty [place] [address] [place] [id number] PCP - General Family Medicine 09/25/22 Chetna Randhawa MD [address] [place] [address] [place] [address] outreach and education social worker 11/08/21 Avril Browne PA-C [address] [place] [address] Physician Crusher Dry Ground Mica Urology 02/16/24 Avril Browne PA-C [address] [place] [address] Assigned Surgical Provider 03/18/24 Bridger Chau DPM [address] [place] [phone] Assigned Musculoskeletal Provider 03/18/24 David Blancas DO [address] [place] [address] Assigned PCP 06/18/24
--- OUTSIDE RECORDS SUMMARY | 2024-08-05 02:15 | XMS_ITS | Clinical Summary ---
Author Organization [facility] Address [place], [place] [address] Care Team Providers Care Client Support Associate Name Role Phone Gayle Feliciano Primary Care Provider [phone] Allergies Active Allergy Reactions Criticality Noted Date Comments Amoxicillin Rash Low 06/27/2020 Taken at the same time as Prevacid; occurred in 4th grade Lansoprazole Rash Low 01/04/2020 Medications Medication Sig Dispensed Refills Start Date End Date Status Nara 28, 3-0.02 mg tablet 10/08/2022 Active Active Problems No known active problems Encounters Date Type Department Care Team Description 05/05/2024 Lab Requisition [address] [address] Primo Islas MD from Last 3 Months Immunizations Name Administration Dates Next Due DTaP 03/16/2009, 6,2004,09/18,2004 HIB-HepB (Comvax) 05/27/2005,2004,07/23/20 04 Hepatitis A (Peds) 06/14/2008,06/01/2007 Inactivated Polio Vaccine 03/16/2009,,2004,07/23 Influenza A (H1N1), Inactivated 09/14/2009 Influenza Virus, Unspecified 09/22/2006 Influenza, IIV3 (Age 6-35 mos) 09/10/2012,2009,10/01/2005 Influenza, IIV4 09/12/2015 Influenza, Injectable, Mdck, Quadrivalent, W/preservative 09/14/2018 Influenza,LAIV3 Live Intrana sayda (Flumist) 08/27/2011 Influenza,LAIV4 Live Intrana sayda (Flumist) 08/25/2014,08/18/2013 MENINGOCOCCAL VACCINE 2 VIAL 2MO-55YO (MENVEO) 06/16/2020 MMR 06/12/2009,06/25/2005 Meningococcal B 05/31/2022,06/29/2021 Pneumococcal conj 7-Valent (Prevnar 7) 1 2004,2004,2004,07/23 [...] T Respiratory Rate 12 10/13/2022 2:51 PM KAI WHAKARURUHAU Oxygen Saturation 98% 02/13/2024 1:16 PM CDT [...] for age 18-79 2022 COVID-19 vaccine series ( season) 2024 Influenza for age 9-49 06/27/2024 8, 09/12/2015, [...] Meningococcal series for age 11-21 Completed 06/16/2020 Procedures Procedure Name Priority Date/Time Associated Diagnosis Comments QFT MITOGEN PERFORMABLE Routine 05/05/2024 1:01 PM CDT QFT TB2 PERFORMABLE Routine 05/05/2024 1 :01 PM CDT QFT TB1 PERFORMABLE Routine 05/05/2024 1 :01 PM CDT QUANTIFERON TB GOLD PLUS Routine 05/05/2024 1:01 PM CDT QUANTIFERON TB GOLD PLUS Routine 05/05/2024 1:01 PM CDT from Last 3 Months Results * QFT MITOGEN PERFORMABLE (05/05/2024 1:01 PM CDT) MITOGEN 10.00 IU/mL 05/07/2024 12:26 PM CDT [facility] Blood BLOOD SPECIMEN / Unknown Venipuncture / Unknown 05/05/2024 1:01 PM CDT 05/05/2024 1:01 PM CDT V Guillaume Islas MD CHEMISTRY Performing Organization Address City/[facility]/ZIP Co de Phone Number [facility]ORY [address] [place] [address], [place] * QFT TB2 PERFORMABLE (05/05/2024 1:01 PM CDT) TB2 0.04 IU/mL 05/07/2024 12:26 PM CDT [facility] Blood BLOOD SPECIMEN / Unknown Venipuncture / Unknown 05/05/2024 1:01 PM CDT 05/05/2024 1:01 PM CDT V Guillaume Islas MD CHEMISTRY Performing Organization Address [facility] Co de Phone Number [facility] [address] [place], [place] [id number], [place] * QFT TB1 PERFORMABLE (05/05/2024 1:01 PM CDT) TB1 0.04 IU/mL 05/07/2024 1:56 PM CDT [facility] Blood BLOOD SPECIMEN / Unknown Venipuncture / Unknown 05/05/2024 1:01 PM CDT 05/05/2024 1:01 PM CDT V Guillaume Islas MD CHEMISTRY Performing Organization Address City/[facility] Co de Phone Number [facility] [address] [place] [address], [place] * QUANTIFERON TB GOLD PLUS (05/05/2024 1:01 PM CDT) QFTP NIL 0.03 05/07/2024 1:57 PM CDT [facility] TB1 0.04 IU/mL 05/07/2024 1:57 PM CDT [facility] TB2 0.04 IU/mL 05/07/2024 1:57 PM CDT [facility] MITOGEN 10.00 IU/mL 05/07/2024 1:57 PM CDT [facility] QFTP TB AG1 - NIL 0.01 024 1:57 PM CDT [facility] TB1-NIL % OF NIL 33 % 05/07/20 24 1:57 PM CDT [facility] QFTP TB AG2 - NIL 0.01 024 1:57 PM CDT [facility] TB2-NIL % OF NIL 33 % 05/07/20 24 1:57 PM CDT [facility] QFTP MITOGEN - NIL 9.97 2023 1:57 PM CDT [facility] QFTP QUANTIFERON INTERPRETATION Negative Negative 05/07/2024 1:57 PM CDT [facility] Blood BLOOD SPECIMEN / Unknown Venipuncture / Unknown 05/05/2024 1:01 PM CDT 05/05/2024 1:01 PM CDT [facility] LABORATORY - 05/07/2024 1:57 PM CDT M. tuberculosis infection not likely, but cannot be excluded in cases of immunosuppression. CAUTION: The performance of QuantiFERON-TB Gold Plus has not been evaluated in specimens from: - Individuals with impaired or altered immune factors (HIV infections, transplant patients, those receieving immunosuppressive drugs such as corticosteroids) and those with other clinical conditions (e.g., diabetes, hematological disorders). - Individuals younger than 17 years old. ??Refer to CDC website for testing recommendations in children 6-17 years old. - women V Guillaume Islas MD CHEMISTRY [facility] [address] [place] [address], from Last 3 Months Care Teams Client Support Associate Relationship Specialty Start Date End Date Gayle Feliciano PA [address] [place] [address] PCP - General Physician Broodmare Foreman 02/04/24
--- OUTSIDE RECORDS SUMMARY | 2024-08-05 02:15 | XMS_ITS | Encounter Summary ---
Author Organization [place] Address [address] [place] [address] Care Team Providers Care Labor Specialist Name Role Phone Chetna Randhawa MD Unavailable [phone] David Blancas DO Primary Care Provider [phone] Avril Browne PA-C Unavailable Avril Browne PA-C Unavailable Bridger Chau DPM Unavailable [phone] David Blancas DO Unavailable [phone] Encounter Details Date Type Department Care Team (Latest Contact Info) Description 07/26/2024 Travel Social History Tobacco Use Types Packs/Day [...] Answer Date Recorded Do you have housing? (Housin g is defined as stable permanent housing and does not include staying ouside in a car, in a tent, in an abandoned building, in an overnight fdc, or couch-surfing.) Yes 09/21/2023 Are you worried [...] Contact Info) Description 08/05/2024 2:15 PM CDT [facility] [address] [place] [phone] documented as of this encounter Visit Diagnoses Not on filedocumented in this encounter Additional Health Concerns Assessment Noted Time PHQ-9 Depression Total Score: 3 06/07/20 24 3:04 PM CDT documented as of this encounter Care Teams Labor Specialist Relationship Specialty Start Date End Date David Blancas DO [address] [place] [address] PCP - General Family Medicine 09/25/22 Chetna Randhawa MD [address] [place] [address] vocational rehabilitation technician 11/08/21 Avril Browne PA-C [address] [place] [address] Physician Emergency Medical Dispatcher Urology 02/16/24 Avril Browne PA-C [address] [place] [address] Assigned Surgical Provider 03/18/24 Bridger Chau DPM [address] [address] Assigned Musculoskeletal Provider 03/18/24 [place] [address] [place] [address] Assigned PCP 06/18/24 documented as of this encounter
--- OUTSIDE RECORDS SUMMARY | 2024-08-05 02:16 | XMS_ITS | Encounter Summary ---
Author Organization [place] Address [address] [place] [address]. [place] [address] Care Team Providers Care Cabin Crew Name Role Phone Chetna Randhawa MD Unavailable [phone] David Blancas DO Primary Care Provider [phone] Avril Browne-C Unavailable [phone] Avril Browne PA-C Unavailable [phone] Bridger Chau DPM Unavailable Meseret Wyatt PA-C Unavailable Reason for Visit * Reason Comments UTI Entered automaticall y based on patient selection in mon.ki. Encounter Details Date Type Department Care Team (Late st Contact Info) Description 05/02/2024 1:00 AM CDT E-Visit [facility] [address] [address] Garima Wu, SPINE SURGEON [address] [place] [address] UTI (Entered automatically based on beverlyen... Social History Tobacco Use Types Packs/Day Years Used Date Smoking Tobacco: Never Smokeless Tobacco: Never Alcohol Use Standard Drinks/Week Comments Not Asked 0 (1 standard drink = 0.6 oz pur e alcohol) PHQ-2 Answer Date Recorded PHQ-2 Score 1 03/10/2024 Adolescent Education Answer Date Record ed Getting [...] Answer Date Recorded Do you have housing? (Judah mccord is defined as stable permanent housing and does not include staying ouside in a car, in a tent, in an abandoned building, in an overnight fci, or couch-surfing.) Yes 09/21/2023 Are you worried [...] * Patient Instructions* Garima Wu NP - 05/02/2024 1:00 AM CDT Dear Kerline Fontaine, After reviewing your responses, [...] will receive instructions with your results [facility] once they are available. If your symptoms worsen, you develop pain in your back or stomach, develop fevers, or are not improving in 5 days, please contact your primary care provider for an appointment or visit a Walk-in or Urgent Care Center to be seen. Thanks again for choosing us as your health intensive care specialist, Koko Jorge NP documented in this encounter Miscellaneous Notes * Telephone Encounter - Garima Wu NP - 05/02/2024 1:43 AM CDT Provider E-Visit time total (minutes): 3 documented in this encounter Plan of Treatment Upcoming Encounters Date Type Department Care Team (Late st Contact Info) Description 08/05/2024 2:15 PM CDT Lab [facility] [address] [place] [phone] documented as of this encounter Results * (ABNORMAL) UA Macroscopic with reflex to Microscopic and Culture (05/03/2024 2:23 PM CDT) Color Urine Yellow Colorless, Straw, Light Yellow, Yellow 05/03/2024 2:27 PM CDT LABORATORY Appearance Urine Clear Clear 05/03/20 24 2:27 PM CDT LABORATORY Glucose Urine Negative Negative mg/dL 05/03/2024 2:27 PM CDT LABORATORY Bilirubin Urine Negative Negative 2:27 PM CDT LABORATORY Ketones Urine Negative Negative mg/dL 05/03/2024 2:27 PM CDT LABORATORY Specific [place] Urine 1.025 1.003 - 1.035 05/03/2024 2:27 PM CDT LABORATORY Blood Urine Trace(A) Negative 05/03/2024 2:27 PM CDT LABORATORY pH Urine 6.0 5.0 - 7.0 05/03/2024 2:27 PM CDT LABORATORY Protein Albumin Urine Negative Negative mg/dL 05/03/2024 2:27 PM CDT LABORATORY Urobilinogen Urine 0.2 0.2, 1.0 E.U./dL 05/03/2024 2:27 PM CDT RM LABORATORY Nitrite Urine Negative Negative 05/03/2024 2:27 PM CDT RM LABORATORY Leukocyte Esterase Urine Negative Negative 05/03/2024 2:27 PM CDT RM LABORATORY Urine MID-STREAM URINE SPECIMEN / Unknown Non-blood Collection / Unknown 05/03/2024 2:23 PM CDT 05/03/2024 2:23 PM CDT Garima Sutherland SPINE SURGEON LAB - URINE SH[facility]Y [facility] LABORATORY [facility] [place] Lab [address] [facility] Lab (no room number, 1st floor of clinic) [facility] [address], [facility] documented in this encounter Visit Diagnoses Diagnosis Dysuria- Primary documented in this encounter Additional Health Concerns Assessment Noted Time PHQ-9 Depression Total Score: 6 03/09/20 24 4:40 PM CDT documented as of this encounter Care Teams Cabin Crew Relationship Specialty Start Date End Date David Blancas DO [address] [place] [address] PCP - General Family Medicine 09/25/22 Chetna Randhawa MD [address] [address] master pilot 11/08/21 Avril Browne PA-C [address] [place] [address] Physician Grooving Machine Operator Urology 02/16/24 Avril Browne PA-C [address] [place] [address] Assigned Surgical Provider 03/18/24 Bridger Chau DPM [address] [place] [phone] Assigned Musculoskeletal Provider 03/18/24 Meseret Wyatt PA-C [address] [place] [address] Assigned PCP 04/18/24 06/17/24 documented as of this encounter
--- OUTSIDE RECORDS SUMMARY | 2024-08-05 02:16 | XMS_ITS | Encounter Summary ---
Author Organization [facility] Address [address] [place] [address] Care Team Providers Care Experimental Psychologist Name Role Phone Chetna Randhawa MD Unavailable [phone] David Blancas DO Primary Care Provider Avril Browne-Bam Unavailable Avril Browne PA-C Unavailable Bridger Chau DPM Unavailable Meseret Wyatt PA-C Unavailable Reason for Visit * Reason Comments Recheck Medication Encounter Details Date Type Department Care Team (Late st Contact Info) Description 06/07/2024 3:30 PM CDT Virtual Visit [address] [place] [phone] David Blancas DO [address] [place] [address] Anxiety (Primary Dx); Mixed obsessional thoughts and acts Social History Tobacco Use Types Packs/Day Years [...] in an abandoned building, in an overnight jail, or couch-surfing.) Yes 09/21/2023 Are you worried [...] as of this encounter Progress Notes * David Blancas, - 06/07/2024 3:30 PM CDT Kerline is a 19 year old who is being evaluated via a billable video visit. How would you like to obtain your AVS? MyChart If the video visit is dropped, the invitation should be resent by: Text to cell phone: [phone] Will anyone else be joining your video visit? No Assessment & Plan Anxiety - FLUoxetine (PROZAC) 20 MG capsule; Take 1 capsule (20 mg) by mouth daily Mixed obsessional thoughts and acts - FLUoxetine (PROZAC) 20 MG capsule; Take 1 capsule (20 mg) by mouth daily Anxiety and OCD somewhat better but sill experiencing bothersome symptoms. Will try increasing doseto 20 mg daily. Watch for impact on headaches -- may need to try alternative medication if persisting. Follow up in 1 month. Subjective Kerline is a 19 year old, presenting for the following health issues: Recheck Medication 06/07/2024 3:21 PM Additional Questions Roomed by horace History of Present Illness Reason for visit: My medication She eats 2-3 servings of fruits and vegetables daily.She consumes 1 sweetened beverage(s) daily.Sheexercises with enough effort to increase her heart rate 30 to 60 minutes per day. She exercises with enough effort to increase her heart rate 4 days per week. She is taking medications regularly. Depression and Anxiety How are you doing with your depression since your last visit? No change OCD and anxiety How are you doing with your anxiety since your last visit? No change Are you having other symptoms that might be associated with depression or anxiety? No Have you had a significant life event? No Do you have any concerns with your use of alcohol or other drugs? No Currently taking fluoxetine 10 mg daily. She feels like she could maybe increase dose as she is having anxiety/OCD. Has noticed some improvement but wonders if a higher dose would be more beneficial.However, she has been having daily headaches since starting the fluoxetine Social History Tobacco Use Smoking status: Never Smokeless tobacco: Never Vaping Use Vaping status: Every Day Substances: Nicotine Devices: Refillable tank 03/02/2024 2:58 PM 03/09/2024 4:40 PM 06/07/2024 3:04 PM PHQ PHQ-9 Total Score 5 6 6 6 3 Q9: Thoughts of better off /self-harm past 2 weeks Not at all Not at all Not at all 03/02/2024 2:56 PM 06/07/2024 3:05 PM JESSI-7 SCORE Total Score 14 (moderate anxiety) Total Score 16 14 Objective Vitals: No vitals were obtained today due to virtual visit. Physical Exam GENERAL: alert and no distress EYES: Eyes grossly normal to inspection. No discharge or erythema, or obvious scleral/conjunctival abnormalities. RESP: No audible wheeze, cough, or visible cyanosis. SKIN: Visible skin clear. No significant rash, abnormal pigmentation or lesions. NEURO: Cranial nerves grossly intact. Mentation and speech appropriate for age. PSYCH: Appropriate affect, tone, and pace of words Video-Visit Details Type of service: Video Visit Originating Location (pt. Location): Home Distant Location (provider location): On-site Platform used for Video Visit: [email or web address] The longitudinal plan of care for the diagnosis(es)/condition(s) as documented were addressed during this visit. Due to the added complexity in care, I will continue to support Kerline in the subsequent management and with ongoing continuity of care. Signed Electronically by: David Blancas DO documented in this encounter Plan of Treatment Upcoming Encounters Date Type Department Care Team (Late st Contact Info) Description 08/05/2024 2:15 PM CDT [facility] [address] [place] [address] documented as of this encounter Visit Diagnoses Diagnosis Anxiety- Primary Anxiety state, unspecified Mixed obsessional thoughts and acts documented in this encounter Additional Health Concerns Assessment Noted Time PHQ-9 Depression Total Score: 3 06/07/20 24 3:04 PM CDT documented as of this encounter Care Teams Experimental Psychologist Relationship Specialty Start Date End Date David Blancas DO [address] [place] [address] PCP - General Family Medicine 09/25/22 Chetna Randhawa MD [address] [address] transformer maker 11/08/21 Avril Browne PA-C [address] [place] [address] Physician Retail Sales Representative Urology 02/16/24 Avril Browne PA-C [address] [place] [address] Assigned Surgical Provider 03/18/24 Bridger Chau DPM [address] [place] [phone] Assigned Musculoskeletal Provider 03/18/24 Meseret Wyatt PA-C [address] [place] [address] Assigned PCP 04/18/24 06/17/24 documented as of this encounter
--- OUTSIDE RECORDS SUMMARY | 2024-08-05 02:16 | XMS_ITS | Encounter Summary ---
Author Organization [facility] Address [address] [place] [address] Care Team Providers Care Roofer Gypsum Name Role Phone Chetna Randhawa MD Unavailable [phone] David Blancas DO Primary Care Provider Avril Browne PA-C Unavailable Avril Browne PA-C Unavailable Bridger Chau DPM Unavailable [phone] David Blancas DO Unavailable [phone] Encounter Details Date Type Department Care Team (Late st Contact Info) Description 06/25/2024 Orders Only [facility] [address] [address] Lisa Vaughn MD [address]75 [place], [place] [phone] Dysuria (Primary Dx) Social History Tobacco Use Types [...] Date Recorded Do you have housing? (Judah g is defined as stable permanent housing and does not include staying ouside in a car, in a tent, in an abandoned building, in an overnight care home, or couch-surfing.) Yes 09/21/2023 Are you worried [...] Contact Info) Description 08/05/2024 2:15 PM CDT [facility] [address] [place] [address] documented as of this encounter Visit Diagnoses Diagnosis Dysuria- Primary documented in this encounter Additional Health Concerns Assessment Noted Time PHQ-9 Depression Total Score: 3 06/07/20 24 3:04 PM CDT documented as of this encounter Care Teams Roofer Gypsum Relationship Specialty [place] [address] [place] [address] PCP - General Family Medicine 09/25/22 Chetna Randhawa MD [address] [place] [address] [place] [address] veterinary poultry inspector 11/08/21 Avril Browne PA-C 5[address] [place] [address] Physician Ep Technologist Urology 02/16/24 Avril Browne PA-C [address] [place] [address] Assigned Surgical Provider 03/18/24 Bridger Chau DPM [address] [place] [phone] Assigned Musculoskeletal Provider 03/18/24 [place] [address] [place] [address] Assigned PCP 06/18/24 documented as of this encounter
--- OUTSIDE RECORDS SUMMARY | 2024-08-05 02:16 | XMS_ITS | Encounter Summary ---
Author Organization [facility] Address [address] [place] [address] Care Team Providers Care Sanitary Aide Name Role Phone Chetna Randhawa MD Unavailable [phone] David Blancas DO Primary Care Provider [phone] Avril Browne PA-C Unavailable [phone] Avril Browne PA-C Unavailable [phone] Bridger Chau DPM Unavailable [phone] Meseret Wyatt-C Unavailable [phone] Encounter Details Date Type Department Care Team (Latest Contact Info) Description 06/04/2024 Travel Social History Tobacco Use Types Packs/Day [...] in an abandoned building, in an overnight skilled nursing, or couch-surfing.) Yes 09/21/2023 Are you worried [...] Contact Info) Description 08/05/2024 2:15 PM CDT [facility] [address] [place] [phone] documented as of this encounter Visit Diagnoses Not on filedocumented in this encounter Additional Health Concerns Assessment Noted Time PHQ-9 Depression Total Score: 6 03/09/20 24 4:40 PM CDT documented as of this encounter Care Teams Sanitary Aide Relationship Specialty Start Date End Date David Blancas DO [address] [place] [address] PCP - General Family Medicine 09/25/22 Chetna Randhawa MD [address] [place] [address] cardiovascular rn 11/08/21 Avril Browne PA-C [address] [place] [address] Physician Fork Assembler Urology 02/16/24 Avril Browne PA-C [address] [place] [address] Assigned Surgical Provider 03/18/24 Bridger Chau DPM [address] [phone] Assigned Musculoskeletal Provider 03/18/24 Meseret Wyatt PA-C [address] [place] [address] Assigned PCP 04/18/24 06/17/24 documented as of this encounter
--- OUTSIDE RECORDS SUMMARY | 2024-08-05 02:16 | XMS_ITS | Encounter Summary ---
Author Organization [facility] Address [address] [place] [address] Care Team Providers Care Lipstick Molder Name Role Phone Chetna Randhawa MD Unavailable [phone] David Blancas DO Primary Care Provider [phone] Avril Browne-C Unavailable Avril Browne-Bam Unavailable [phone] Bridger Chau DPM Unavailable Meseret Wyatt PA-C Unavailable [phone] Encounter Details Date Type Department Care Team (Late st Contact Info) Description 05/03/2024 2:30 PM CDT Lab [facility] [address] [place] [address] Screening for HIV (human immunodeficiency virus) (Primary Dx); Screening for STDs (sexually transmitted diseases); Need for hepatitis C screening test; Dysuria Social History Tobacco Use Types Packs/Day [...] in an abandoned building, in an overnight alf, or couch-surfing.) Yes 09/21/2023 Are you worried [...] Info) Description 08/05/2024 2:15 PM CDT Lab [facility] [address] [place] [phone] Scheduled Orders Name Type Priority Associated Diagnoses Orde r Schedule HIV Antigen Antibody Combo Lab Routine Screening for HIV (human immunodeficiency virus) Screening for STDs (sexually transmitted diseases) Expected: 05/03/2024 (Approximate), Expires: 05/03/2025 Hepatitis C Screen Reflex to HCV RNA Quant and Genotype Lab Routine Need for hepatitis C screening test Expected: 05/03/2024 (Approximate), Expires: 05/03/2025 documented as of this encounter Procedures Procedure Name Priority Date/Time Associated Diagnosis Comments UA MICROSCOPIC WITH REFLEX TO CULTURE Routine 05/03/2024 2:23 PM CDT Dysuria UA MACROSCOPIC WITH REFLEX TO MICRO AND CULTURE Routine 05/03/2024 2:23 PM CDT Dysuria documented in this encounter Results * (ABNORMAL) UA Microscopic with Reflex to Culture (05/03/2024 2:23 PM CDT) RBC Urine 0-2 0-2 /HPF /HPF NIRANJAN 05/03/2024 2:40 PM CDT [facility] WBC Urine 0-5 0-5 /HPF /HPF NIRANJAN 05/03/2024 2:40 PM CDT [facility] Squamous Epithelials Urine Moderate( A) None Seen /LPF NIRANJAN 05/03/2024 2:40 PM CDT LABORATORY Urine MID-STREAM URINE SPECIMEN / Unknown Non-blood Collection / Unknown 05/03/2024 2:23 PM CDT 05/03/2024 2:23 PM CDT Narrative [facility] - 05/03/2024 2:40 PM CDT Urine Culture not indicated Garima Sutherland NP LAB - [facility]INE [facility] [place] [facility] [address] [facility] (no room number, 1st floor of clinic) [place] [address], [facility] * (ABNORMAL) UA Macroscopic with reflex to Microscopic and Culture (05/03/2024 2:23 PM CDT) Color Urine Yellow Colorless, Straw, Light Yellow, Yellow 05/03/2024 2:27 PM CDT LABORATORY Appearance Urine Clear Clear 05/03/20 2:27 PM CDT LABORATORY Glucose Urine Negative Negative mg/dL 05/03/2024 2:27 PM CDT LABORATORY Bilirubin Urine Negative Negative 2:27 PM CDT LABORATORY Ketones Urine Negative Negative mg/dL 05/03/2024 2:27 PM CDT LABORATORY Specific [place] Urine 1.025 1.003 - 1.035 05/03/2024 2:27 [...] CDT 05/03/2024 2:23 PM CDT Garima Sutherland SOUND MIXER LAB - URINE [facility] [place] [facility] [address] [facility] (no room number, 1st floor of clinic) [place] [address], [facility] documented in this encounter Visit Diagnoses Diagnosis Screening for HIV (human immunodeficiency virus)- Primary Special screening examination for other specified viral diseases Screening for STDs (sexually transmitted diseases) Screening examination for venereal disease Need for hepatitis C screening test Special screening examination for other specified viral diseases Dysuria documented in this encounter Additional Health Concerns Assessment Noted Time PHQ-9 Depression Total Score: 6 03/09/20 24 4:40 PM CDT documented as of this encounter Care Teams Lipstick Molder Relationship Specialty Start Date End Date David Blancas DO [address] [place] [address] PCP - General Family Medicine 09/25/22 Chetna Randhawa MD [address] [facility] [[email or web address] 200 [place] [address] senior consumer insights consultant 11/08/21 Avril Browne PA-C [address] [place] [address] Physician Hospital Corpsman Urology 02/16/24 Avril Browne PA-C [address] [place] [address] Assigned Surgical Provider 03/18/24 Bridger Chau DPM [address] [phone] Assigned Musculoskeletal Provider 03/18/24 Meseret Wyatt PA-C [address] [place] [address] Assigned PCP 04/18/24 06/17/24 documented as of this encounter
--- OUTSIDE RECORDS SUMMARY | 2024-08-05 02:16 | XMS_ITS | Encounter Summary ---
Author Organization [facility] Address [address] [place] [address] Care Team Providers Care Shirt Sewer Name Role Phone Chetna Randhawa MD Unavailable [phone] David Blancas DO Primary Care Provider Avril Browne PA-C Unavailable [phone] Avril Browne PA-C Unavailable [phone] Bridger Chau DPM Unavailable David Blancas DO Unavailable [phone] Encounter Details Date Type Department Care Team (Late st Contact Info) Description 07/26/2024 3:00 PM CDT Lab [facility] [address] [place] [address] Dysuria Social History Tobacco Use Types Packs/Day [...] in an abandoned building, in an overnight snf, or couch-surfing.) Yes 09/21/2023 Are you worried [...] Contact Info) Description 08/05/2024 2:[address] [facility] [address] [place] [address] documented as of this encounter Procedures Procedure Name Priority Date/Time Associated Diagnosis Comments UA MICROSCOPIC WITH REFLEX TO CULTURE Routine 07/26/2024 2:18 PM CDT Dysuria UA MACROSCOPIC WITH REFLEX TO MICRO AND CULTURE Routine 07/26/2024 2:18 PM CDT Dysuria documented in this encounter [...] Seen /LPF NIRANJAN 07/26/2024 2:34 PM CDT LABORATORY Mucus Urine Present(A ) None Seen /LPF NIRANJAN 07/26/2024 2:34 PM CDT LABORATORY Urine URINE SPECIMEN OBTAINED BY CLEAN CATCH PROCEDURE / Unknown Non-blood Collection / Unknown 07/26/2024 2:18 PM CDT 07/26/2024 2:18 PM CDT Narrative [facility] - 07/26/2024 2:34 PM CDT Urine Culture not indicated Violet Castaneda PA-C LAB - URINE [facility] [place] [facility] [address] [facility] (no room number, 1st floor of clinic) [place] [address], [facility] * (ABNORMAL) UA Macroscopic with reflex to Microscopic and Culture - Clinic Collect (07/26/2024 2:18 PM CDT) Color Urine Yellow Colorless, Straw, Light Yellow, Yellow 07/26/2024 2:27 PM CDT LABORATORY Appearance Urine Clear Clear 07/26/20 24 2:27 PM CDT LABORATORY Glucose Urine Negative Negative mg/dL 07/26/2024 2:27 PM CDT LABORATORY Bilirubin Urine Negative Negative 2:27 PM CDT LABORATORY Ketones Urine Negative Negative mg/dL 07/26/2024 2:27 PM CDT LABORATORY Specific [place] Urine 1.020 1.003 - 1.035 07/26/2024 2:27 [...] Castaneda PA-C LAB - URINE ORDERABL ES RM LABORATORY [facility] [place] [facility] [address] [facility] (no room number, 1st floor of clinic) [place] [address], [facility] documented in this encounter Visit Diagnoses Diagnosis Dysuria documented in this encounter Additional Health Concerns Assessment Noted Time PHQ-9 Depression Total Score: 3 06/07/20 24 3:04 PM CDT documented as of this encounter Care Teams Shirt Sewer Relationship Specialty Start Date End Date David Blancas DO [address] [place] [address] PCP - General Family Medicine 09/25/22 Chetna Randhawa MD [address] [facility] [address] [address] boat carpenter mechanic 11/08/21 Avril Browne PA-C [address] [place] [address] Physician Book Canvasser Urology 02/16/24 Avril Browne PA-C [address] [place] [address] Assigned Surgical Provider 03/18/24 [place] [address] [place] [phone] Assigned Musculoskeletal Provider 03/18/24 David Blancas DO [address] [place] [address] Assigned PCP 06/18/24 documented as of this encounter
--- OUTSIDE RECORDS SUMMARY | 2024-08-05 02:16 | XMS_ITS | Encounter Summary ---
Author Organization [facility] Address [address] [place] [address]. [place] [address] Care Team Providers Care Oriental Rug Repairer Name Role Phone Chetna Randhawa MD Unavailable [phone] David Blancas DO Primary Care Provider Avril Browne PA-C Unavailable Avril Browne PA-C Unavailable Bridger Chau DPM Unavailable Meseret Wyatt PA-C Unavailable [phone] Reason for Visit * Reason Comments UTI Entered automaticall y based on patient selection in [employer]. Encounter Details Date Type Department Care Team (Late st Contact Info) Description 05/26/2024 1:45 PM CDT E-Visit [facility] [address] [address] Donald You PA-C [address] [place] [address] UTI (Entered automatically based on patien... Social [...] in an abandoned building, in an overnight long term, or couch-surfing.) Yes 09/21/2023 Are you worried [...] this encounter Patient Instructions * Patient Instructions* Donald You PA-C - 05/26/2024 1:45 PM CDT Dear Kerline Fontaine, After reviewing your [...] will receive instructions with your results in [facility] once they are available. If your symptoms worsen, you develop pain in your back or stomach, develop fevers, or are not improving in 5 days, please contact your primary care provider for an appointment or visit a Walk-in or Urgent Care Center to be seen. Thanks again for choosing us as your health infant caregiver, Donald You PA-C documented in this encounter Miscellaneous Notes * Telephone Encounter - Donald You PA-C - 05/26/2024 1:44 PM CDT Provider E-Visit time total (minutes): 5 documented in this encounter Plan of Treatment Upcoming Encounters Date Type Department Care Team (Late st Contact Info) Description 08/05/2024 2:15 PM CDT Lab [facility] [address] [place] [address] documented as of this encounter Visit Diagnoses Diagnosis Dysuria- Primary documented in this encounter Additional Health Concerns Assessment Noted Time PHQ-9 Depression Total Score: 6 03/09/20 24 4:40 PM CDT documented as of this encounter Care Teams Oriental Rug Repairer Relationship Specialty Start Date End Date David Blancas DO [address] [place] [address] PCP - General Family Medicine 09/25/22 Chetna Randhawa MD [address] [address] paper sorter 11/08/21 Avril Browne PA-C 5[address] [place] [address] Physician Cavalry Scout Urology 02/16/24 Avril Browne PA-C [address] [place] [address] Assigned Surgical Provider 03/18/24 Bridger Chau DPM [address] [phone] Assigned Musculoskeletal Provider 03/18/24 Meseret Wyatt PA-C [address] [place] [address] Assigned PCP 04/18/24 06/17/24 documented as of this encounter
--- OUTSIDE RECORDS SUMMARY | 2024-08-05 02:16 | XMS_ITS | Encounter Summary ---
Author Organization [facility] Address [address] [place] [address]. [place] [address] Care Team Providers Care Neon Installer Name Role Phone Chetna Randhawa MD Unavailable [phone] David Blancas DO Primary Care Provider Avril Browne PA-C Unavailable Avril Browne PA-C Unavailable Bridger Chau DPM Unavailable David Blancas DO Unavailable Encounter Details Date Type Department Care Team (Late st Contact Info) Description 07/25/2024 Orders Only [facility] [place] [address] [facility] [address] [place] [address] Bonifacio Martin MD [address] [facility] [address] [place], [place] [address] Dysuria (Primary Dx) Social History Tobacco Use [...] in an abandoned building, in an overnight custodial, or couch-surfing.) Yes 09/21/2023 Are you worried [...] Info) Description 08/05/2024 2:15 PM CDT Lab [facility] [address] [place] [phone] Scheduled Orders Name Type Priority Associated Diagnoses Orde r Schedule UA Macroscopic with reflex to Microscopic and Culture - Clinic Collect Lab Routine Dysuria Expected: 07/25/2024 (Approximate), Expires: 08/24/2024 documented as of this encounter Visit Diagnoses Diagnosis Dysuria- Primary documented in this encounter Additional Health Concerns Assessment Noted Time PHQ-9 Depression Total Score: 3 06/07/20 24 3:04 PM CDT documented as of this encounter Care Teams Neon Installer Relationship Specialty Start Date End Date David Blancas DO [address] [place] [address] PCP - General Family Medicine 09/25/22 Chetna Randhawa MD [address] [facility] 200 [place] [address] district representative 11/08/21 Avril Browne PA-C 5[address] [place] [address] Physician Vessel Master Urology 02/16/24 Avril Browne PA-C [address] [place] [address] Assigned Surgical Provider 03/18/24 Bridger Chau DPM [address] [place] [phone] Assigned Musculoskeletal Provider 03/18/24 [place] [address] [place] [id number] Assigned PCP 06/18/24 documented as of this encounter
--- OUTSIDE RECORDS SUMMARY | 2024-08-05 02:16 | XMS_ITS | Encounter Summary ---
Author Organization [facility] [facility] Address [address] [place] [address] Care Team Providers Care Denture Model Maker Name Role Phone Chetna Randhawa MD Unavailable [phone] David Blancas DO Primary Care Provider Avril Browne PA-C Unavailable [phone] Avril Browne PA-C Unavailable Bridger Chau DPM Unavailable Meseret Wyatt PA-C Unavailable David Blancas DO Unavailable Reason for Visit * Reason Onset Date Comments Headache Entered automati emma based on patient selection in [facility]. Headache 06/20/2024 Encounter Details Date Type Department Care Team (Late st Contact Info) Description 06/08/2024 8:00 PM CDT E-Visit [address] [place] [phone] David Blancas DO [address] [place] [address] [id number] Headache (Entered automatically based on p... Social History Tobacco Use Types Packs/Day Years [...] in an abandoned building, in an overnight long-term, or couch-surfing.) Yes 09/21/2023 Are you worried [...] on file documented as of this encounter Miscellaneous Notes * Telephone Encounter - David Blancas DO - 06/09/2024 7:39 AM CDT Provider E-Visit time total (minutes): 3 David Blancas DO 06/09/2024 7:42 AM documented in this encounter Plan of Treatment Upcoming Encounters Date Type Department Care Team (Late st Contact Info) Description 08/05/2024 2:15 PM CDT [address] [address] documented as of this encounter Visit Diagnoses Diagnosis Nonintractable headache, unspecified chronicity pattern, unspecified headache type- Primary documented in this encounter Additional Health Concerns Assessment Noted Time PHQ-9 Depression Total Score: 3 06/07/20 24 3:04 PM CDT documented as of this encounter Care Teams Denture Model Maker Relationship Specialty Start Date End Date David Blancas DO [address] [place] [address] PCP - General Family Medicine 09/25/22 Chetna Randhawa MD [address] [address] front end technician 11/08/21 Avril Browne PA-C 5200 [place] [address] Physician Assistant Professor Of Nursing Urology 02/16/24 Avril Browne PA-C 5200 [place] [address] Assigned Surgical Provider 03/18/24 Bridger Chau DPM [address] [address] Assigned Musculoskeletal Provider 03/18/24 Meseret Wyatt PA-C [address] [place] [address] Assigned PCP 04/18/24 06/17/24 [place] [address] [place] [address] Assigned PCP 06/18/24 documented as of this encounter
--- OUTSIDE RECORDS SUMMARY | 2024-08-05 02:16 | XMS_ITS | Encounter Summary ---
Author Organization [facility] Address [address] [place] [address]. [place] [address] Care Team Providers Care Solidworks Drafter Name Role Phone Chetna Randhawa MD Unavailable [phone] David Blancas DO Primary Care Provider Avril Browne PA-C Unavailable Avril Browne PA-C Unavailable Bridger Chau DPM Unavailable [phone] David Blancas DO Unavailable Reason for Visit * Reason Comments UTI Entered automaticall y based on patient selection in [facility]. Encounter Details Date Type Department Care Team (Late st Contact Info) Description 07/25/2024 3:25 PM CDT E-Visit [facility] [address] [address] Bonifacio Martin MD 9723 [facility] 150 [place], [place] [phone] UTI (Entered automatically based on patien... Social [...] in an abandoned building, in an overnight penitentiary, or couch-surfing.) Yes 09/21/2023 Are you worried [...] this encounter Patient Instructions * Patient Instructions* Bonifacio Martin MD - 07/25/2024 3:25 PM CDT Images from the original note [...] again for choosing us as your health health care coach, Bonifacio Martin MD, MD Urinary Tract Infection (UTI) in Women: Care [...] now or seek immediate medical care if: You have new or worse fever, chills, nausea, or vomiting. You have new pain in your back just below your rib cage. This is called flank pain. There is new blood or pus in your urine. You have any problems with your antibiotic medicine. Watch closely for changes in your health, and be sure to contact your doctor if: You are not getting better after taking an antibiotic for 2 days. Your symptoms go away but then come back. Where can you learn more? Go to [email or web address]://[email or web address]/patiented Enter K848 in the search box to learn more about Urinary Tract Infection (UTI) in Women: Care Instructions. Current as of: September 10, 2023 Content Version: 14.2 ?? 2023 [employer]. Care instructions adapted under license by your healthcare professional. If you have questions about a medical condition or this instruction, always ask your healthcare professional. [employer] disclaims any warranty or liability for your use of this information. documented in this encounter Miscellaneous Notes * Telephone Encounter - Bonifacio Martin MD - 07/25/2024 3:18 PM CDT Provider E-Visit time total (minutes): 2 documented in this encounter Plan of Treatment Upcoming Encounters Date Type Department Care Team (Late st Contact Info) Description 08/05/2024 2:15 PM CDT [facility] [address] [place] [address] documented as of this encounter Visit Diagnoses Diagnosis Acute UTI (urinary tract infection)- Primary Urinary tract infection, site not specified documented in this encounter Additional Health Concerns Assessment Noted Time PHQ-9 Depression Total Score: 3 06/07/20 24 3:04 PM CDT documented as of this encounter Care Teams Solidworks Drafter Relationship Specialty [place] [address] [place] [address] PCP - General Family Medicine 09/25/22 Chetna Randhawa MD [address] [place] [address] information systems supervisor 11/08/21 Avril Browne PA-C 5200 [place], [place] 1546[address] Physician Leisure Studies Professor Urology 02/16/24 Avril Browne PA-C 5200 [place], [place] [id number] Assigned Surgical Provider 03/18/24 Bridger Chau DPM [facility] [phone] Assigned Musculoskeletal Provider 03/18/24 [place] [address] [place] [address] Assigned PCP 06/18/24 documented as of this encounter
--- OUTSIDE RECORDS SUMMARY | 2024-08-05 02:16 | XMS_ITS | Encounter Summary ---
Author Organization [facility] Address [address] [place] [address] Care Team Providers Care System Trainer Name Role Phone Chetna Randhawa MD Unavailable [phone] David Blancas DO Primary Care Provider [phone] Avril Browne PA-C Unavailable Avril Browne PA-C Unavailable [phone] Bridger Chau DPM Unavailable [phone] Meseret Wyatt-C Unavailable [phone] Encounter Details Date Type Department Care Team (Latest Contact Info) Description 05/27/2024 Travel Social History Tobacco Use Types Packs/Day [...] in an abandoned building, in an overnight halfway, or couch-surfing.) Yes 09/21/2023 Are you worried [...] Contact Info) Description 08/05/2024 2:15 PM CDT [facility] [address] [place] [phone] documented as of this encounter Visit Diagnoses Not on filedocumented in this encounter Additional Health Concerns Assessment Noted Time PHQ-9 Depression Total Score: 6 03/09/20 24 4:40 PM CDT documented as of this encounter Care Teams System Trainer Relationship Specialty Start Date End Date David Blancas DO 4151 [place] [address] PCP - General Family Medicine 09/25/22 Chetna Randhawa MD [address] [place] [address] toggler 11/08/21 Avril Browne PA-C 5200 [place] [address] Physician Kiln Stacker Urology 02/16/24 Avril Browne PA-C 5200 [place] [address] Assigned Surgical Provider 03/18/24 Bridger Chau DPM [address] [address] Assigned Musculoskeletal Provider 03/18/24 Meseret Wyatt PA-C [address] [place] [address] Assigned PCP 04/18/24 06/17/24 documented as of this encounter
--- OUTSIDE RECORDS SUMMARY | 2024-08-05 02:16 | XMS_ITS | Encounter Summary ---
Author Organization [facility] Address [address] [place] [address] Care Team Providers Care Compressed Gas Equipment Mechanic Name Role Phone Chetna Randhawa MD Unavailable [phone] David Blancas DO Primary Care Provider [phone] Avril Browne PA-C Unavailable [phone] Avril Browne PA-C Unavailable Bridger Chau DPM Unavailable [phone] Meseret Wyatt PA-C Unavailable David Blancas DO Unavailable Reason for Visit * Rehab Therapy Integrated Services (Routine: Next available opening) - Authorized Specialty Diagnoses / Procedures Referred By Warner cespedes Referred To Contact Diagnoses Pelvic floor dysfunction [address] [address] Referral ID Status Reason Start Date Expiration Date V isits Requested Visits Authorized [id number] Authorized 03/02/2024 10/26/2024 365 365 Encounter Details Date Type Department Care Team (Latest Contact Info) Description 06/04/2024 2:50 PM CDT Therapy Visit [address] [place] [phone] Avril Browne PA-C 1325 [place] [address] Brittney Wagoner, PT [facility] [address] [facility] 106 [place] [address] Pelvic floor dysfunction Social History Tobacco Use Types Packs/Day Years [...] in an abandoned building, in an overnight usp, or couch-surfing.) Yes 09/21/2023 Are you worried [...] as of this encounter Progress Notes * Brittney Wagoner, PT - 07/12/2024 8:31 AM CDT DISCHARGE Reason for Discharge: Patient has failed to schedule further appointments. Equipment Issued: none Discharge Plan: Patient to continue home program. Referring Provider: Avril Browne * Brittney Wagoner PT - 06/04/2024 2:50 PM CDT PHYSICAL THERAPY EVALUATION Type of Visit: Evaluation Fall Risk Screen: Fall screen completed by: PT Have you fallen 2 or more times in the past year?: No Have you fallen and had an injury in the past year?: No Is patient a fall risk?: No Subjective Presenting condition or subjective complaint: UTIS Pt reporting frequent UTIs and burning pain over the last 2-3 years. Pt reporting burning in urethra that comes and goes, dissipates when she drinks water. Feeling discomfort about 65% of the time. Pain with intercourse and afterwards, also pain with tampon use. Voiding as often as 2x per hour, getting up 2-3x overnight. 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 Date of onset: 03/02/24 (MD order) Relevant medical history: Dates & types of surgery: Prior diagnostic imaging/testing results: Prior therapy history for the same diagnosis, illness or injury: No Living Environment Social support: With family members Type of home: House Stairs to enter the home: No Ramp: No Stairs inside the home: Yes 25 Is there a railing: No Help at home: Equipment owned: Employment: Yes THEATRICAL TROUPER/[employer] Hobbies/Interests: Patient goals for therapy: i dont want to have burning sensations in my urethra and i dont want alot of UTIS because of sex Pain assessment: Pain present Objective PELVIC EVALUATION ADDITIONAL HISTORY: Sex assigned at : Female Gender identity: Female Pronouns: She/Her Hers Bladder History: Feels bladder filling: Yes Triggers for feeling of inability to wait to go to the bathroom: No How long can you wait to urinate: Gets up at night to urinate: Yes 2 or 3 times Can stop the flow of urine when urinating: Sometimes Volume of urine usually released: Small Other issues: Slow or hesitant urine stream; Trouble emptying bladder completely; Bladder infections Number of bladder infections in last 12 months: n/a Fluid intake per day: Medications taken for bladder: No Activities causing urine leak: Amount of urine typically leaked: Pads used to help with leaking: No Bowel History: Frequency of bowel movement: 2 to 3 times a day Consistency of stool: Soft Ignores the urge to defecate: No Other bowel issues: Length of time spent trying to have a bowel movement: Sexual Function History: Sexual orientation: Straight Sexually active: Yes Lubrication used: No No Pelvic pain: Certain positions; Deep penetration (rectal or vaginal); Use of tampon Pain or difficulty with orgasms/erection/ejaculation: Yes State of menopause: Hormone medications: Are you currently : No Have you been diagnosed with pelvic prolapse or abdominal separation: No Do you get regular exercise: Yes Have you tried pelvic floor strengthening exercises for 4 weeks: No Do you have any history of trauma that is relevant to your care that you???d like to share: No Discussed reason for referral regarding pelvic health needs and external/internal pelvic floor muscle examination with patient/guardian. Opportunity provided to ask questions and verbal consent for assessment and intervention was given. BREATHING SYMMETRY: very shallow breathing pattern, hard to get ribs or belly to move PELVIC EXAM Pt declines pelvic exam today but agreeable to next visit, all questions answered ABDOMINAL ASSESSMENT Fascial Tension/Restriction: Hypomobile, very tight abdominals, difficult for pt to expand here Assessment & Plan CLINICAL IMPRESSIONS Medical Diagnosis: pelvic floor dysfunction Treatment Diagnosis: pelvic pain, dyspareunia Impression/Assessment: Patient is a 19 year old female with pelvic floor complaints. The following significant findings have been identified: Pain, Decreased ROM/flexibility, Impaired muscle performance, Decreased activity tolerance, and Impaired posture. These impairments interfere with their ability to perform self care tasks and recreational activities as compared to previous level of function. Clinical Decision Making (Complexity): Clinical Presentation: Stable/Uncomplicated Clinical Presentation Rationale: based on medical and personal factors listed in PT evaluation Clinical Decision Making (Complexity): Low complexity PLAN OF CARE Treatment Interventions: Interventions: Manual Therapy, Neuromuscular Re-education, Therapeutic Activity, Therapeutic Exercise, Self-Care/Home Management Intermediate Goals PT Goal 1 Goal Identifier: pelvic pain Goal Description: pt will reducing burning pelvic pain from 65% of the time to 25% of the time or less Rationale: to maximize safety and independence with performance of ADLs and functional tasks Target Date: 12/05/24 Frequency of Treatment: 2x per month Duration of Treatment: 6 months Recommended Referrals to Other Professionals: NA Education Assessment: Learner/Method: Patient Education Comments: Pt educated on PT role and plan of care Risks and benefits of evaluation/treatment have been explained. Patient/Family/caregiver agrees with Plan of Care. Evaluation Time: PT Marshall Ross Minutes (45[address]): 25 Signing Clinician: Brittney Wagoner PT documented in this encounter Plan of Treatment Upcoming Encounters Date Type Department Care Team (Late st Contact Info) Description 08/05/2024 2:15 PM CDT [facility] [address] [place] [address] documented as of this encounter Visit Diagnoses Diagnosis Pelvic floor dysfunction Pelvic muscle wasting documented in this encounter Additional Health Concerns Assessment Noted Time PHQ-9 Depression Total Score: 6 03/09/20 24 4:40 PM CDT documented as of this encounter Care Teams Compressed Gas Equipment Mechanic Relationship Specialty Start Date End Date David Blancas DO [address] [place] [address] PCP - General Family Medicine 09/25/22 Chetna Randhawa MD 65[address] [facility] [address] spout liner helper 11/08/21 Avril Browne PA-C 5200 [place] [address] Physician Filing Or Registry Clerk Urology 02/16/24 Avril Browne PA-C 5200 [place] [address] Assigned Surgical Provider 03/18/24 Bridger Chau DPM [address] [place] [phone] Assigned Musculoskeletal Provider 03/18/24 Meseret Wyatt PA-C [address] [place] [address] Assigned PCP 04/18/24 06/17/24 David Blancas DO 4151 [place] [address] Assigned PCP 06/18/24 documented as of this encounter
--- OUTSIDE RECORDS SUMMARY | 2024-08-05 02:16 | XMS_ITS | Encounter Summary ---
Author Organization [facility] Address [address] [place] [address] Care Team Providers Care Instructor Of Sociology Name Role Phone Chetna Randhawa MD Unavailable [phone] David Blancas DO Primary Care Provider [phone] Avril Browne PA-C Unavailable Avril Browne PA-C Unavailable [phone] Bridger Chau DPM Unavailable [phone] Meseret Wyatt-C Unavailable [phone] Encounter Details Date Type Department Care Team (Latest Contact Info) Description 05/03/2024 Travel Social History Tobacco Use Types Packs/Day [...] Info) Description 08/05/2024 2:[address] [facility] [address] [place] [phone] documented as of this encounter Visit Diagnoses Not on filedocumented in this encounter Additional Health Concerns Assessment Noted Time PHQ-9 Depression Total Score: 6 03/09/20 24 4:40 PM CDT documented as of this encounter Care Teams Instructor Of Sociology Relationship Specialty Start Date End Date David Blancas DO 4151 [place] [address] PCP - General Family Medicine 09/25/22 Chetna Randhawa MD [address] [place] [address] survey research associate 11/08/21 Avril Browne PA-C 5200 [place] [address] Physician Verse Writer Urology 02/16/24 Avril Browne PA-C 5200 [place] [address] Assigned Surgical Provider 03/18/24 Bridger Chau DPM [address] [address] Assigned Musculoskeletal Provider 03/18/24 Meseret Wyatt PA-C [address] [place] [address] Assigned PCP 04/18/24 06/17/24 documented as of this encounter
--- OUTSIDE RECORDS SUMMARY | 2024-08-05 02:16 | XMS_ITS | Encounter Summary ---
Author Organization [facility] Address [address] [place] [address] Care Team Providers Care Clinical Sociologist Name Role Phone Chetna Randhawa MD Unavailable [phone] David Blancas DO Primary Care Provider [phone] Avril Browne PA-C Unavailable [phone] Avril Browne PA-C Unavailable [phone] Bridger Chau DPM Unavailable [phone] Meseret Wytat-C Unavailable [phone] Encounter Details Date Type Department Care Team (Latest Contact Info) Description 06/03/2024 Travel Social History Tobacco Use Types Packs/Day [...] in an abandoned building, in an overnight half-way, or couch-surfing.) Yes 09/21/2023 Are you worried [...] Contact Info) Description 08/05/2024 2:15 PM CDT [facility] [address] [place] [phone] documented as of this encounter Visit Diagnoses Not on filedocumented in this encounter Additional Health Concerns Assessment Noted Time PHQ-9 Depression Total Score: 6 03/09/20 24 4:40 PM CDT documented as of this encounter Care Teams Clinical Sociologist Relationship Specialty Start Date End Date David Blancas DO 4151 [place] [address] PCP - General Family Medicine 09/25/22 Chetna Randhawa MD [address] [place] [address] sewer and drain technician 11/08/21 Avril Browne PA-C 5200 [place] [address] Physician Lifter Urology 02/16/24 Avril Browne PA-C 5200 [place] [address] Assigned Surgical Provider 03/18/24 Bridger Chau DPM [address] [address] Assigned Musculoskeletal Provider 03/18/24 Meseret Wyatt PA-C [address] [place] [address] Assigned PCP 04/18/24 06/17/24 documented as of this encounter
--- OUTSIDE RECORDS SUMMARY | 2024-08-05 02:16 | XMS_ITS | Encounter Summary ---
Author Organization [facility] Address [address] [place] [address] Care Team Providers Care Product Development Manager Name Role Phone Chetna Randhawa MD Unavailable [phone] David Blancas DO Primary Care Provider [phone] Avril Browne PA-C Unavailable [phone] Avril Browne PA-C Unavailable Bridger Chau DPM Unavailable [phone] David Blancas DO Unavailable Encounter Details Date Type Department Care Team (Late st Contact Info) Description 07/25/2024 [facility] [address] [place] [address] Violet Castaneda PA-C [address] [place] [address] Dysuria (Primary Dx) Social History Tobacco Use [...] Progress Notes * Violet Castaneda PA-C - 07/25/2024 5:59 PM CDT 1. Dysuria - UA Macroscopic with reflex to Microscopic and Culture - Clinic Collect; Future documented in this encounter Plan of Treatment Upcoming Encounters Date Type Department Care Team (Late st Contact Info) Description 08/05/2024 2:[address] [facility] [address] [place] [address] documented as of this encounter Results * (ABNORMAL) UA Macroscopic with reflex to Microscopic and Culture - Clinic Collect (07/26/2024 2:18 PM CDT) Color Urine Yellow Colorless, Straw, Light Yellow, Yellow 07/26/2024 2:27 PM CDT LABORATORY Appearance Urine Clear Clear 09/30/20 24 2:27 PM CDT RM LABORATORY Glucose Urine Negative Negative mg/dL 07/26/2024 2:27 PM CDT [facility] Bilirubin Urine Negative Negative 2:27 PM CDT [facility] Ketones Urine Negative Negative mg/dL 07/26/2024 2:27 PM CDT [facility] Specific [place] Urine 1.020 1.003 - 1.035 07/26/2024 2:27 PM CDT [facility]AT[facility] Blood Urine Small(A) Negative 07/26/2024 2:27 PM CDT [facility] pH Urine 7.5(H) 5.0 - 7.0 07/26/2024 2:27 PM CDT [facility] Protein Albumin Urine Negative Negative mg/dL 07/26/2024 2:27 PM CDT [facility] Urobilinogen Urine 0.2 0.2, 1.0 E.U./dL 07/26/2024 2:27 PM CDT [facility] Nitrite Urine Negative Negative 07/26/2024 2:27 PM CDT RM LABORATORY Leukocyte Esterase Urine Negative Negative 07/26/2024 2:27 PM CDT RM LABORATORY Urine URINE SPECIMEN OBTAINED BY CLEAN CATCH PROCEDURE / Unknown Non-blood Collection / Unknown 07/26/2024 2:18 PM CDT 07/26/2024 2:18 PM CDT Violet Castaneda PA-C LAB - URINE ORDERABL ES LABORATORY [facility] [address] [facility] (no room number, 1st floor of clinic) [place] [address], [facility] documented in this encounter Visit Diagnoses Diagnosis Dysuria- Primary documented in this encounter Additional Health Concerns Assessment Noted Time PHQ-9 Depression Total Score: 3 06/07/20 24 3:04 PM CDT documented as of this encounter Care Teams Product Development Manager Relationship Specialty Start [place] [address] [place] [address] PCP - General Family Medicine 09/25/22 Chetna Randhawa MD [address] [facility] 200 [place] [address] seam taper machine 11/08/21 Avril Browne PA-C 5200 [place] [address] Physician Porcelain Technician Urology 02/16/24 Avril Browne PA-C 5200 [place] [address] Assigned Surgical Provider 03/18/24 Bridger Chau DPM [address] [place] [address] Assigned Musculoskeletal Provider 03/18/24 David Blancas DO [address] [place] [address] Assigned PCP 06/18/24 documented as of this encounter
--- OUTSIDE RECORDS SUMMARY | 2024-08-05 02:16 | XMS_ITS | Encounter Summary ---
Author Organization [place] Address [address] [place] [address] Care Team Providers Care Executive Compensation Analyst Name Role Phone Chetna Randhawa MD Unavailable [phone] David Blancas DO Primary Care Provider Avril Browne PA-C Unavailable Avril Browne PA-C Unavailable Bridger Chau DPM Unavailable [phone] David Blancas DO Unavailable [phone] Encounter Details Date Type Department Care Team (Latest Contact Info) Description 06/30/2024 Travel Social History Tobacco Use Types Packs/Day [...] Contact Info) Description 08/05/2024 2:15 PM CDT [facility] [address] [place] [phone] documented as of this encounter Visit Diagnoses Not on filedocumented in this encounter Additional Health Concerns Assessment Noted Time PHQ-9 Depression Total Score: 3 06/07/20 24 3:04 PM CDT documented as of this encounter Care Teams Executive Compensation Analyst Relationship Specialty Start Date End Date David Blancas DO [address]151 [place] [address] PCP - General Family Medicine 09/25/22 Chetna Randhawa MD [address] [place] [address] manufacturing process technician 11/08/21 Avril Browne PA-C 5200 [place] [address] Physician Character Actress Urology 02/16/24 Avril Browne PA-C 5200 [place] [address] Assigned Surgical Provider 03/18/24 Bridger Chau DPM [address] [address] Assigned Musculoskeletal Provider 03/18/24 [place] [address] [place] [address] Assigned PCP 06/18/24 documented as of this encounter
--- OUTSIDE RECORDS SUMMARY | 2024-08-05 02:16 | XMS_ITS | Encounter Summary ---
Author Organization [place] Address [address] [place] [address] Care Team Providers Care Asphalt Roller Operator Name Role Phone Chetna Randhawa MD Unavailable [phone] David Blancas DO Primary Care Provider Avril Browne PA-C Unavailable [phone] Avril Browne PA-C Unavailable Bridger Chau DPM Unavailable David Blancas DO Unavailable [phone] Reason for Visit * Reason Comments UTI Entered automaticall y based on patient selection in [facility] Encounter Details Date Type Department Care Team (Late st Contact Info) Description 06/24/2024 4:55 PM CDT E-Visit [facility] [address] [address] Mary Mitchell PA-C [address] [place] [address] UTI (Entered automatically based on patien... [...] this encounter Patient Instructions * Patient Instructions* Mary Mitchell PA-C - 06/24/2024 4:55 PM CDT Dear Kerline Fontaine, After reviewing [...] will receive instructions with your results in [facility] once they are available. If your symptoms worsen, you develop pain in your back or stomach, develop fevers, or are not improving in 5 days, please contact your primary care provider for an appointment or visit a Walk-in or Urgent Care Center to be seen. Thanks again for choosing us as your health career development associate, Mary Mitchell PA-C documented in this encounter Miscellaneous Notes * Telephone Encounter - Mary Mitchell PA-C - 06/24/2024 7:03 PM CDT Provider E-Visit time total (minutes): 3 documented in this encounter Plan of Treatment Upcoming Encounters Date Type Department Care Team (Late st Contact Info) Description 08/05/2024 2:15 PM CDT Lab [facility] [address] [facility] [address] documented as of this encounter Results * Wet preparation (06/25/2024 3:23 PM CDT) [...] LAB - MICRO GENER AL ORDERABLES LABORATORY [facility] [place] [facility] [address] [facility] (no room number, 1st floor of clinic) [place] [address], [facility] * (ABNORMAL) UA Macroscopic with reflex to Microscopic and Culture (06/25/2024 3:23 PM CDT) Color Urine Yellow Colorless, Straw, Light Yellow, Yellow 06/25/2024 3:29 PM CDT LABORATORY Appearance Urine Clear Clear 06/25/20 3:29 PM CDT LABORATORY Glucose Urine 100(A) Negative mg/dL 06/25/2024 3:29 PM CDT LABORATORY Bilirubin Urine Moderate(A) Negative 06/25/20 3:29 PM CDT LABORATORY Ketones Urine Trace(A) Negative mg/dL 06/25/2024 3:29 PM CDT LABORATORY Specific [place] Urine >=1.030 1.003 - 1.035 06/25/2024 3:29 PM CDT LABORATORY Blood Urine Negative Negative 06/25/2024 3:29 PM CDT LABORATORY pH Urine 6.0 5.0 - 7.0 06/25/2024 3:29 PM CDT LABORATORY Protein Albumin Urine 100(A) Negative mg/dL 06/25/2024 3:29 PM CDT LABORATORY Urobilinogen Urine 1.0 0.2, 1.0 E.U./dL 06/25/2024 3:29 PM CDT LABORATORY Nitrite Urine Positive(A) Negative 06/25/2024 3:29 PM CDT LABORATORY Leukocyte Esterase Urine Trace(A) Negative 06/25/2024 3:29 PM CDT LABORATORY Urine URINE SPECIMEN OBTAINED BY CLEAN CATCH PROCEDURE / Unknown Non-blood Collection / Unknown 06/25/2024 3:23 PM CDT 06/25/2024 3:23 PM CDT Mary Mitchell PA-C LAB - URINE ORDER ALAYNA LABORATORY [facility] [address] [facility] (no room number, 1st floor of clinic) [place] [id number], [facility] documented in this encounter Visit Diagnoses Diagnosis Dysuria- Primary documented in this encounter Additional Health Concerns Assessment Noted Time PHQ-9 Depression Total Score: 3 06/07/20 24 3:04 PM CDT documented as of this encounter Care Teams Asphalt Roller Operator Relationship Specialty Start Date End Date David Blancas DO [address] [place] [address] PCP - General Family Medicine 09/25/22 Chetna Randhawa MD [address] [facility] 200 [place] [address] investor relations associate 11/08/21 Avril Browne PA-C 5200 [place] [address] Physician Launch Operator Urology 02/16/24 Avril Browne PA-C [address] [place] [address] Assigned Surgical Provider 03/18/24 Bridger Chau DPM [address] [place] [address] Assigned Musculoskeletal Provider 03/18/24 David Blancas DO [address] [place] [address] Assigned PCP 06/18/24 documented as of this encounter
--- OUTSIDE RECORDS SUMMARY | 2024-08-05 02:16 | XMS_ITS | Encounter Summary ---
Author Organization [place] Address [address] [place] [address] Care Team Providers Care Rehabilitation Program Coordinator Name Role Phone Chetna Randhawa MD Unavailable [phone] David Blancas DO Primary Care Provider [phone] Avril Browne PA-C Unavailable Avril Browne PA-C Unavailable [phone] Bridger Chau DPM Unavailable [phone] David Blancas DO Unavailable [phone] Encounter Details Date Type Department Care Team (Latest Contact Info) Description 06/25/2024 Travel Social History Tobacco Use Types Packs/Day [...] Contact Info) Description 08/05/2024 2:15 PM CDT [facility] [address] [place] [phone] documented as of this encounter Visit Diagnoses Not on filedocumented in this encounter Additional Health Concerns Assessment Noted Time PHQ-9 Depression Total Score: 3 06/07/20 24 3:04 PM CDT documented as of this encounter Care Teams Rehabilitation Program Coordinator Relationship Specialty Start Date End Date David Blancas DO 4151 [place] [address] PCP - General Family Medicine 09/25/22 Chetna Randhawa MD [address] [place] [address] bsa officer 11/08/21 Avril Browne PA-C 5200 [place] [address] Physician Shop Tech Urology 02/16/24 Avril Browne PA-C 5[address] [place] [address] Assigned Surgical Provider 03/18/24 Bridger Chau DPM [address] [address] Assigned Musculoskeletal Provider 03/18/24 [place] [address] [place] [address] Assigned PCP 06/18/24 documented as of this encounter
--- OUTSIDE RECORDS SUMMARY | 2024-08-05 02:16 | XMS_ITS | Encounter Summary ---
Author Organization [place] Address [address] [place] [address] Care Team Providers Care Rv Parts And Service Director Name Role Phone Chetna Randhawa MD Unavailable [phone] David Blancas DO Primary Care Provider [phone] Avril Browne PA-C Unavailable [phone] Avril Browne PA-C Unavailable Bridger Chau DPM Unavailable David Blancas DO Unavailable [phone] Reason for Visit * Reason Comments UTI Entered automaticall y based on patient selection in [employer]. Encounter Details Date Type Department Care Team (Late st Contact Info) Description 06/27/2024 1:25 PM CDT E-Visit [facility] [address] [address] Toby Stephens PAJayleenC [address] [address] UTI (Entered automatically based on beverlyen... Social [...] in an abandoned building, in an overnight retirement, or couch-surfing.) Yes 09/21/2023 Are you worried [...] this encounter Patient Instructions * Patient Instructions* Toby Stephens PA-C - 06/27/2024 1:25 PM CDT Dear Kerline Fontaine, We are sorry [...] you for trusting us with your care. Toby Stephens PA-C documented in this encounter Miscellaneous Notes * Telephone Encounter - Toby Stephens PA-C - 06/27/2024 1:24 PM CDT Provider E-Visit time total (minutes): 3 Failed therapy documented in this encounter Plan of Treatment Upcoming Encounters Date Type Department Care Team (Late st Contact Info) Description 08/05/2024 2:15 PM CDT [facility] Laboratory [address] [place] [phone] documented as of this encounter Visit Diagnoses Diagnosis Dysuria- Primary documented in this encounter Additional Health Concerns Assessment Noted Time PHQ-9 Depression Total Score: 3 06/07/20 24 3:04 PM CDT documented as of this encounter Care Teams Rv Parts And Service Director Relationship Specialty Start Date End Date David Blancas DO [address] [place] [address] PCP - General Family Medicine 09/25/22 Chetna Randhawa MD [address] [address] drying oven attendant 11/08/21 Avril Browne PA-C 5200 [place] [address] Physician Recruiting Team Lead Urology 02/16/24 Avril Browne PA-C 5200 [place] [address] Assigned Surgical Provider 03/18/24 Bridger Chau DPM [address] [address] Assigned Musculoskeletal Provider 03/18/24 David Blancas DO [address] [place] [address] Assigned PCP 06/18/24 documented as of this encounter
--- OUTSIDE RECORDS SUMMARY | 2024-08-05 02:16 | XMS_ITS | Encounter Summary ---
Author Organization [place] Address [address] [place] [address] Care Team Providers Care [employer]borne [employer] Name Role Phone Chetna Randhawa MD Unavailable [phone] David Blancas DO Primary Care Provider Avril Browne PA-C Unavailable Avril Browne PA-C Unavailable [phone] Bridger Chau DPM Unavailable [phone] Meseret WyattC Unavailable Reason for Visit * Reason Onset Date Comments Refill Request 06/02/2024 Encounter Details Date Type Department Care Team (Late st Contact Info) Description 06/02/2024 Emmanuelle [place] [address] [address] Alyssa Willis, DRY TRANSFER WORKER ENGRAVING SUPERVISOR [address] [place] [address] Refill Request Social History Tobacco Use Types Packs/Day Years [...] in an abandoned building, in an overnight assisted, or couch-surfing.) Yes 09/21/2023 Are you worried [...] encounter Miscellaneous Notes * Telephone Encounter - Kriss Davis CMA - 06/04/2024 1:12 PM CDT Called patient scheduled for med check. Kriss Davis CMA * Telephone Encounter - David Blancas DO - 06/03/2024 8:11 AM CDT Refill signed. Patient is due for follow up on medication. Please help schedule. David Blancas DO 06/03/2024 8:11 AM documented in this encounter Plan of Treatment Upcoming Encounters Date Type Department Care Team (Late st Contact Info) Description 08/05/2024 2:15 PM CDT Lab [facility] [address] [place] [phone] documented as of this encounter Visit Diagnoses Diagnosis Mixed obsessional thoughts and acts Anxiety Anxiety state, unspecified documented in this encounter Additional Health Concerns Assessment Noted Time PHQ-9 Depression Total Score: 6 03/09/20 24 4:40 PM CDT documented as of this encounter Care Teams [employer] Relationship Specialty [place] [address] [place] [address] PCP - General Family Medicine 09/25/22 Chetna Randhawa MD [address] [address] full service supervisor 11/08/21 Avril Browne PA-C 5200 [place] [address] Physician Director Technical Urology 02/16/24 Avril Browne PA-C 5[address] [place] [address] Assigned Surgical Provider 03/18/24 Bridger Chau DPM [address] [address] Assigned Musculoskeletal Provider 03/18/24 Meseret Wyatt PAJayleenC [address] [place] [address] Assigned PCP 04/18/24 06/17/24 documented as of this encounter
--- OUTSIDE RECORDS SUMMARY | 2024-08-05 02:16 | XMS_ITS | Encounter Summary ---
Author Organization [place] Address [address] [place] [address] Care Team Providers Care Cargo And Container Inspector Name Role Phone Chetna Radnhawa MD Unavailable [phone] David Blancas DO Primary Care Provider Avril Browne PA-C Unavailable Avril Browne PA-C Unavailable [phone] Bridger Chau DPM Unavailable David Blancas DO Unavailable [phone] Encounter Details Date Type Department Care Team (Late st Contact Info) Description 06/25/2024 3:30 PM CDT Lab [facility] [address] [place] [address] Dysuria Social History Tobacco Use [...] 08/05/2024 2:15 PM CDT [facility] [address] [place] [phone] documented as of this encounter Procedures Procedure Name Priority Date/Time Associated Diagnosis Comments UA MACROSCOPIC WITH REFLEX TO MICRO AND CULTURE Routine 06/25/2024 3:23 PM CDT Dysuria WET PREPARATION Routine 06/25/2024 3:23 PM CDT Dysuria URINE MICROSCOPIC EXAM Routine 06/25/2024 3:23 PM CDT Dysuria URINE CULTURE Routine 06/25/2024 3:23 PM CDT Dysuria documented in this encounter Results * Urine Culture (06/25/2024 3:23 PM CDT) Culture <10,000 CFU/mL Mixture of Urogenital Cristy 06/27/2024 5:50 AM CDT [facility] Urine URINE SPECIMEN OBTAINED BY CLEAN CATCH PROCEDURE / Unknown Non-blood Collection / Unknown 06/25/2024 3:23 PM CDT 06/25/2024 3:27 PM CDT Mary Mitchell PA-C LAB - MICRO GENER AL ORDERABLES [facility] Inf. Diseases Diag. Lab [address] [facility], Room [address] [place] [address] * (ABNORMAL) Urine Microscopic [...] PA-C LAB - URINE ORDER ALAYNA LABORATORY [facility] [place] [facility] [address] [facility] Lab (no room number, 1st floor of clinic) [place] [address], [facility] * Wet preparation (06/25/2024 3:23 PM CDT) Trichomonas Absent Absent NIRANJAN 06/25/2024 3:27 PM CDT RM LABORATORY Yeast Absent Absent NIRANJAN 06/25/2024 3:27 PM CDT RM LABORATORY Clue Cells Absent Absent NIRANJAN 06/25/2024 3:27 PM CDT RM LABORATORY WBCs/high power field None None NIRANJAN 06/25/2024 3:27 PM CDT LABORATORY Swab VAGINAL STRUCTURE / Unknown Non-blood Collection / Unknown 06/25/2024 3:23 PM CDT 06/25/2024 3:23 PM CDT Mary Mitchell PA-C LAB - MICRO GENER AL ORDERABLES LABORATORY [facility] [place] [facility] [address] [facility] Lab (no room number, 1st floor of clinic) [place] [address], [facility] * (ABNORMAL) UA Macroscopic [...] mg/dL 06/25/2024 3:29 PM CDT LABORATORY Specific [place] Urine >=1.030 1.003 - 1.035 06/25/2024 3:29 [...] PA-C LAB - URINE ORDER ALAYNA LABORATORY [facility] [place] [facility] [address] [facility] Lab (no room number, 1st floor of clinic) [place] [address], [facility] documented in this encounter Visit Diagnoses Diagnosis Dysuria documented in this encounter Additional Health Concerns Assessment Noted Time PHQ-9 Depression Total Score: 3 06/07/20 3:04 PM CDT documented as of this encounter Care Teams Cargo And Container Inspector Relationship Specialty Start Date End Date David Blancas DO [address] [place] [id number] PCP - General Family Medicine 09/25/22 Chetna Randhawa MD [address] [facility] 200 [place] [address] statuary painter 11/08/21 Avril Browne PA-C 5200 [place] [address] Physician Forensic Technician Urology 02/16/24 Avril Browne PA-C 5200 [place] [address] Assigned Surgical Provider 03/18/24 Bridger Chau DPM [facility] [address] [phone] Assigned Musculoskeletal Provider 03/18/24 [place] [address] [place] [address] Assigned PCP 06/18/24 documented as of this encounter
--- OUTSIDE RECORDS SUMMARY | 2024-08-05 02:17 | XMS_ITS | Encounter Summary ---
Author Organization [place] Address [address] [place] [address] Care Team Providers Care Decision Support Manager Name Role Phone Chetna Randhawa MD Unavailable [phone] David Blancas DO Primary Care Provider David Blancas DO Unavailable Avril Browne PA-C Unavailable [phone] Avril Browne PA-C Unavailable Bridger Chau DPM Unavailable Meseret Wyatt-C Unavailable David Blancas DO Unavailable Encounter Details Date Type Department Care Team (Late st Contact Info) Description 05/08/2023 [facility] Medical Advice [address] [place] [address] Stacie Kendall Social History Tobacco [...] Contact Info) Description 08/05/2024 2:15 PM CDT [facility] [address] [place] [phone] documented as of this encounter Visit Diagnoses Not on filedocumented in this encounter Care Teams Decision Support Manager Relationship Specialty Start Date End Date David Blancas DO [address] [place] [phone] PCP - General Family Medicine 09/25/22 Chetna Randhawa MD [address] [address] front office representative 11/08/21 David Blancas DO [address] [place] [address] Assigned PCP 09/05/22 04/17/24 Avril Browne PA-C 5200 [place] [address] Physician Early Childhood Coordinator Urology 02/16/24 Avril Browne PA-C 5[address] [place] [address] Assigned Surgical Provider 03/18/24 Bridger Chau DPM [facility] [address] [address] Assigned Musculoskeletal Provider 03/18/24 Meseret Wyatt PA-C [address] [place] [address] Assigned PCP 04/18/24 06/17/24 David Blancas DO 4151 [place] [address] Assigned PCP 06/18/24 documented as of this encounter
--- OUTSIDE RECORDS SUMMARY | 2024-08-05 02:17 | XMS_ITS | Encounter Summary ---
Author Organization [place] Address [address] [place] [address] Care Team Providers Care Rooming House Inspector Name Role Phone Chetna Randhawa MD Unavailable [phone] David Blancas DO Primary Care Provider David Blancas DO Unavailable [phone] Avril Browne PA-C Unavailable Avril Browne PA-C Unavailable Bridger Chau DPM Unavailable Meserte Wyatt PA-C Unavailable David Blancas DO Unavailable Encounter Details Date Type Department Care Team (Late st Contact Info) Description 03/09/2024 [facility] [address] [facility] 210 [place] [address] Hina Woo LICSW 20 [place] [address] Social History Tobacco Use Types Packs/Day Years [...] 08/05/2024 2:15 PM CDT [facility] [address] [place] [phone] documented as of this encounter Visit Diagnoses Not on filedocumented in this encounter Additional Health Concerns Assessment Noted Time PHQ-9 Depression Total Score: 6 03/09/20 24 4:40 PM CDT documented as of this encounter Care Teams Rooming House Inspector Relationship Specialty Start Date End Date David Blancas DO [address] [place] [address] PCP - General Family Medicine 09/25/22 Chetna Randhawa MD 6504 [facility] 200 [place] [address] strip polisher 11/08/21 [place] [address] [place] [address] Assigned PCP 09/05/22 04/17/24 Avril Browne PA-C 5200 [place] [address] Physician Senior Construction Manager Urology 02/16/24 Avril Browne PA-C 5[address] [place] [address] Assigned Surgical Provider 03/18/24 Bridger Chau DPM [facility] [address] [address] Assigned Musculoskeletal Provider 03/18/24 Meseret Wyatt PA-C [address] [place] [address] Assigned PCP 04/18/24 06/17/24 David Blancas DO [address] [place] [address] Assigned PCP 06/18/24 documented as of this encounter
--- OUTSIDE RECORDS SUMMARY | 2024-08-05 02:17 | XMS_ITS | Encounter Summary ---
Author Organization [place] Address [address] [place] [address]. [place] [address] Care Team Providers Care Pillowcase Turner Name Role Phone Chetna Randhawa MD Unavailable [phone] David Blancas DO Primary Care Provider [phone] Avril Browne PA-C Unavailable Avril Browne PA-C Unavailable Bridger Chau DPM Unavailable Meseret Wyatt-C Unavailable Reason for Visit * Reason Onset Date Comments Refill Request 04/29/2024 Encounter Details Date Type Department Care Team (Late st Contact Info) Description 04/29/2024 Emmanuelle [place] [facility] [id number] [place] [phone] Meseret Wyatt PA-C [address] [place] [address] Refill Request Social History Tobacco Use Types [...] Contact Info) Description 08/05/2024 2:15 PM CDT [facility] [address] [place] [phone] documented as of this encounter Visit Diagnoses Diagnosis Mixed obsessional thoughts and acts Anxiety Anxiety state, unspecified documented in this encounter Additional Health Concerns Assessment Noted Time PHQ-9 Depression Total Score: 6 03/09/20 24 4:40 PM CDT documented as of this encounter Care Teams Pillowcase Turner Relationship Specialty [place] [address] [place] [address] PCP - General Family Medicine 09/25/22 Chetna Randhawa MD [address] [place] [address] [place] [address] door frame builder 11/08/21 Avril Browne PA-C 5200 [place] [address] Physician Crew Truck Driver Urology 02/16/24 Avril Browne PA-C 5200 [place] [address] Assigned Surgical Provider 03/18/24 Bridger Chau DPM [address] [phone] Assigned Musculoskeletal Provider 03/18/24 Meseret Wyatt PA-C [address] [place] [address] Assigned PCP 04/18/24 06/17/24 documented as of this encounter
--- OUTSIDE RECORDS SUMMARY | 2024-08-05 02:17 | XMS_ITS | Encounter Summary ---
Author Organization [place] Address [address] [place] [address] Care Team Providers Care Assistant Family Teacher Name Role Phone Chetna Randhawa MD Unavailable [phone] David Blancas DO Primary Care Provider David Blancas DO Unavailable Avril Browne-Bam Unavailable Avril Browne-Bam Unavailable [phone] Bridger Chau DPM Unavailable [phone] Meseret Wyatt PA-C Unavailable David Blancas DO Unavailable Encounter Details Date Type Department Care Team (Late st Contact Info) Description 03/10/[address] [facility] Medical Advice [facility] [address] [place] [phone] Jolene Yuen LICSW [address] [place] [address] [place] [address] Social History Tobacco Use Types Packs/Day Years [...] in an abandoned building, in an overnight correction, or couch-surfing.) Yes 09/21/2023 Are you worried [...] [facility] [address] [place] [address] documented as of this encounter Visit Diagnoses Not on filedocumented in this encounter Additional Health Concerns Assessment Noted Time PHQ-9 Depression Total Score: 6 03/09/20 24 4:40 PM CDT documented as of this encounter Care Teams Assistant Family Teacher Relationship Specialty Start Date End Date David Blancas DO [address] [place] [id number] PCP - General Family Medicine 09/25/22 Chetna Randhawa MD [address] [facility] [address] [place] [address] manufacturing supervisor 11/08/21 David Blancas DO [address] [place] [address] [id number] Assigned PCP 09/05/22 04/17/24 Avril Browne PA-C [address] [place] [address] Physician Filling Operator Urology 02/16/24 Avril Browne PA-C [address] [place] [address] Assigned Surgical Provider 03/18/24 Bridger Chau DPM [facility] [address] [phone] Assigned Musculoskeletal Provider 03/18/24 Meseret Wyatt PA-C [address] [place] [address] Assigned PCP 04/18/24 06/17/24 David Blancas DO [address] [place] [address] [phone] Assigned PCP 06/18/24 documented as of this encounter
--- OUTSIDE RECORDS SUMMARY | 2024-08-05 02:17 | XMS_ITS | Encounter Summary ---
Author Organization [place] Address [address] [place] [address] Care Team Providers Care Supervisor [employer] Name Role Phone Chetna Randhawa MD Unavailable [phone] David Blancas DO Primary Care Provider David Blancas DO Unavailable Avril Browne-Bam Unavailable Avril Browne-Bam Unavailable Bridger Chau DPM Unavailable Meseret Wyatt PA-C Unavailable David Blancas DO Unavailable Encounter Details Date Type Department Care Team (Late st Contact Info) Description 03/09/2024 [facility] [place] [facility] [address] [place] [phone] Jolene Yuen LICSW [address] [place] [address] [place] [address] Social History Tobacco Use Types Packs/Day Years [...] CDT [facility] [address] [place] [address] documented as of this encounter Visit Diagnoses Not on filedocumented in this encounter Additional Health Concerns Assessment Noted Time PHQ-9 Depression Total Score: 6 03/09/20 24 4:40 PM CDT documented as of this encounter Care Teams Supervisor [employer] Relationship Specialty Start Date End Date David Blancas DO [address] [place] [address] PCP - General Family Medicine 09/25/22 Chetna Randhawa MD [address] [facility] [address] [place] [address] turning and beading machine operator 11/08/21 David Blancas DO [address] [place] [id number] Assigned PCP 09/05/22 04/17/24 Avril Browne PA-C [address] [place] [address] Physician Graphic Pre Press Trades Worker Urology 02/16/24 Avril Browne PA-C [address] [place] [address] Assigned Surgical Provider 03/18/24 Bridger Chau DPM [facility] [address] [phone] Assigned Musculoskeletal Provider 03/18/24 Meseret Wyatt PA-C [address] [place] [address] Assigned PCP 04/18/24 06/17/24 David Blancas DO [address] [place] [address] [phone] Assigned PCP 06/18/24 documented as of this encounter
[2024-08-05 02:19] LABS: Amorphous Sediment Urine Few; Bacteria Urine Many; RBC Urine 0-2 (0-2); Squamous Epithelial Cell Urine Few (None-Few)
== END 2024-08-05 02:34 | disposition home or self-care (01) ==
PROVIDERS: Emergency Provider Family Medicine
DX: N39.0 Urinary tract infection, site not specified (principal)
CPT/HCPCS: 81001; 87086; 87186; 99282; 99283